=== PATIENT | female | born 1990 | race Caucasian/White ===

== ENCOUNTER → 2020-04-05 07:56 | Outpatient (CLI) | payer OTHER, SELFPAY ==
--- NOTE | ~2020-04-05 | US_ITS ---
EXAMINATION: US abdomen complete EXAM DATE: 04/05/2020 08:30 INDICATION: Upper abdominal pain, unspecified . TECHNIQUE: Multiple grayscale and Doppler images of the complete abdomen were obtained (by a technolo gist who performed the scan) and subsequently reviewed. There is no prior study for comparison. FINDINGS: The abdominal aorta is normal in caliber. Visualized portion IVC is patent. The pancreatic head a nd body are normal in appearance. The pancreatic tail is not visualized. The liver has normal echogenicity and contour. There are no focal liver lesions identified. There is no evidence of intrahepatic biliary duct dilation. Portal venous flow was seen in the hepatopedal , normal direction and has normal Doppler waveform. Common bile duct measures 2 mm, which is normal. The gallbladder wall is normal in thickness, with ex pected amount of distention. No sonographic evidence of pericholecystic fluid. There is no cholelit hiases. Technologist performing exam reports patient did not demonstrate sonographic Wheeler's sign. Please note that this sign is less reliable in patients who have received pain medication. Right kidney: There is normal contour and echogenicity. It measures 9.5 x 3.8 x 4.5 centimeters. T here are no focal renal lesions identified. There is no hydronephrosis. Left kidney: There is normal contour and echogenicity. It measures 10.1 x 5.6 x 3.7 centimeters. T here are no focal renal lesions identified. There is no hydronephrosis. The spleen measures 9.2 centimeters and is morphologically normal. IMPRESSION: 1. Unremarkable complete abdominal ultrasound exam. Reviewed, dictated and finalized at location B. HALMOLOGY TECHNICIAN
== END ==
PROVIDERS: PCP Physician Assistant; Visit Provider Physician Assistant
DX: R10.10 Upper abdominal pain, unspecified (principal)
CPT/HCPCS: 76700

== ENCOUNTER → 2020-04-09 11:07 | Outpatient (CLI) | payer OTHER, SELFPAY ==
--- NOTE | ~2020-04-09 | XR_ITS ---
EXAMINATION: XR UGIAC w small bowel DATE: 04/09/2020 13:11 INDICATION: Upper abdominal pain TECHNIQUE: The patient drank thick barium, gas-producing crystals, and thin barium. Conventional supi ne abdomen radiographs and fluoroscopic spot radiographs of the esophagus, stomach, and proximal smal l bowel were obtained. Additional overhead radiographs were obtained during the transit through the s mall bowel. Spot fluoroscopic images of the small bowel were obtained upon contrast reaching the cec um. A total of 4 overhead radiographs and 478 fluoroscopic images were recorded. Fluoroscopy exposure time was 3.1 minutes. COMPARISON: None. FINDINGS: The esophagus is normal without mass or stricture. Esophageal motility is normal. There is no hiatal hernia. There was no gastroesophageal reflux with provocative maneuvers. The stomach and proximal sma ll bowel are normal. Transit time from the stomach to proximal colon was approximately 30 minutes. There is normal caliber and mucosal fold pattern throughout the small bowel. The terminal ileum is suboptimally visualized, seen only en face along the axis of bowel where it appeared unremarkable. Attempts to profile the ter henry ileum in multiple different positions including in Trendelenburg and reverse Trendelenburg were unsuccessful due to its low lying position in the pelvis with multiple additional closely apposed lo ops of contrast opacified small bowel. No tethering or abnormal mass effect observed upon the small b owel with real-time fluoroscopy. IMPRESSION: 1. Normal upper GI and small bowel follow-through study. The terminal ileum is however suboptimally v isualized due to positioning in the deep pelvis. Reviewed, dictated and finalized at location B. RIMENTAL TECHNICIAN IMPRESSION: 1. Normal upper GI and small bowel follow-through study. The terminal ileum is however suboptimally visualized due to positioning in the deep pelvis.
== END ==
PROVIDERS: PCP Physician Assistant; Visit Provider Physician Assistant
DX: R10.10 Upper abdominal pain, unspecified (principal)
CPT/HCPCS: 74246; 74248

== ENCOUNTER 2021-11-14 09:38 | Outpatient (CLI) | payer OTHER, SELFPAY | END 2021-11-14 09:39 | disposition home or self-care (01) | PROVIDERS: PCP Physician Assistant; Visit Provider Obstetrics & Gynecology | DX: O26.859 Spotting complicating pregnancy, unspecified trimester (principal); Z3A.00 Weeks of gestation of pregnancy not specified | CPT/HCPCS: 36415; 85461 ==

== ENCOUNTER 2022-04-22 19:20 | Emergency (ER) | payer OTHER, SELFPAY ==
--- NOTE | 2022-04-22 19:28 | ED.FEMALEGU ---
HPI - Female Genitourinary General Chief complaint: Urogenital-Female Stated complaint: Possible UTI Time Seen by Provider: 04/22/22 19:32 Source: patient and RN notes reviewed Mode of arrival: ambulatory Limitations: no limitations History of Present Illness HPI Narrative: 31-year-old female presented for complaint of urinary frequency and odor over the last few days. Endorses the symptoms are difficult to separate from symptoms. Endorses pressure and urgency. Did home urine test that indicated leuks. State she has had several pre- UTIs with more severe symptoms. Last treated for UTI symptoms 03/14/22 with macrobid, no culture sent. denies increased nausea, vomiting, diarrhea, hematuria, flank pain, fevers or chills. She is not taking anything additional for symptoms. She is 30 weeks gestation and endorses normal movement today. Related Data Home Medications Medication Instructions Recorded Confirmed vits no.126-ferrous fum 1 tablet PO DAILY 04/22/22 04/22/22 28 mg iron-folic acid 800 mcg tablet (Classic ) sertraline 50 mg tablet 50 mg PO DAILY 04/22/22 04/22/22 Allergies Allergy/AdvReac Type Severity Reaction Status Date / Time No Known Allergies Allergy Verified 04/22/22 19:29 Review of Systems Review of Systems: CONSTITUTIONAL: Denies body aches, fever, chills, or sweats. CARDIOVASCULAR: Denies chest pain, palpitations, or edema. RESPIRATORY: Denies cough or dyspnea. GASTROINTESTINAL: Denies abdominal pain, nausea, vomiting, or diarrhea. Endorses hemorrhoids. GENITOURINARY: Reports frequency, denies dysuria, hematuria, flank pain SKIN: Denies rash, itching, or wounds. MUSCULOSKELETAL: Denies back pain or myalgia. [facility] Past Medical History Medical History (Updated 04/22/22 @ 20:04 by Kamala Dick, FELIPA) No pertinent past medical history Comments At time of signature, I have reviewed and agree with nursing past medical, surgical, social and family history unless otherwise noted. Please see nursing chart for further information. There is no relevant family history pertinent to the presenting complaint Exam Narrative: GENERAL: Well-appearing and in no acute distress. HEAD: Normocephalic EYES: EOMI. . ENT: Mucous membranes pink and moist. NECK: Normal AROM. Supple. CHEST: No respiratory distress. Clear to auscultation. HEART: Regular rate and rhythm. ABDOMEN: Gravid. Soft, No CVA tenderness MUSCULOSKELETAL: No bony tenderness. SKIN: Warm, dry, no rash. NEURO: No focal deficits. Alert and oriented x3. Gait steady. PSYCH: Normal affect. Course Course Emergency Course: Patient is aware of diagnosis, understands and agrees to treatment plan. Anticipatory guidance given. Patient agrees to follow-up as directed and is aware of reasons to seek care at the emergency department. Portions of this record may have been created with voice recognition software Level of Care: Express Care Visit Vital Signs Vital signs: Vital Signs Temperature 96.8 F L 04/22/22 19:30 Pulse Rate 89 04/22/22 19:30 Respiratory Rate 16 04/22/22 19:30 Blood Pressure 104/69 04/22/22 19:30 Pulse Oximetry 100 04/22/22 19:30 Oxygen Delivery Room Air 04/22/22 19:30 Temperature 96.8 F L 04/22/22 19:32 Pulse Rate 89 04/22/22 19:32 Respiratory Rate 16 04/22/22 19:32 Blood Pressure 104/69 04/22/22 19:32 Pulse Oximetry 100 04/22/22 19:32 Oxygen Delivery Room Air 04/22/22 19:32 Reviewed MDM - Female Genitourinary MDM Narrative Medical decision making narrative: Urine results reviewed with patient. Will await urine culture. Advised supportive measures and signs/symptoms to go to the ER. Pt is appropriate for outpt treatment and f/u. Differential Diagnosis Differential diagnosis: Likely urinary tract infection, cystitis and other Lab Data Labs: Urine Glucose Negative
[2022-04-22 19:30] VITALS: BP 104/69; PULSE 89; RESP 16; TEMP 36; O2SAT 100
[2022-04-22 19:32] VITALS: BP 104/69; PULSE 89; RESP 16; TEMP 36; O2SAT 100
== END 2022-04-22 19:41 | disposition home or self-care (01) ==
PROVIDERS: Emergency Provider Nurse Practitioner Family; PCP Physician Assistant
DX: R35.0 Frequency of micturition (principal)
CPT/HCPCS: 81003; 87086; 99213; G0463

== ENCOUNTER 2022-06-17 20:28 | Outpatient (CLI) | payer OTHER, SELFPAY ==
--- NOTE | 2022-06-17 20:40 | PC.NURSE ---
Patient arrives to unit with elevated blood pressures. She checked her pressures at home because she was looking flushed, not because she was feeling bad . She denies any signs of pre-e. She denies contractions and vaginal bleeding or leaking of fluid. Patient states a slight headache, but she is congested and has history of migraines. She has a history of anxiety and states that she is feeling anxious right now. Patient able to provide urine sample. monitoring explained to patient and applied.
[2022-06-17 20:54] VITALS: BP 136/102; PULSE 97
[2022-06-17 21:00] VITALS: BP 134/94; PULSE 97
[2022-06-17 21:14] LABS: Basophils Percent Auto 0.3 % (0.2-1.2); Eosinophils Percent Auto 0.3 % (0-4.4); Hematocrit 31.1 % (37.0-47.0); Immature Granulocyte Absolute 0.03 K/mm3 (0.00-0.031); Immature Granulocyte Percent A 0.3 % (0-0.5); Lymphocytes Absolute Auto 1.97 K/mm3 (0.9-3.2); Lymphocytes Percent Auto 20.5 % (18.3-44.2); Mean Corpuscular HGB Conc 32.2 g/dl (32-36); Mean Corpuscular Hemoglobin 29.4 pg (26-34); Mean Corpuscular Volume 91.5 fl (80-100); Mean Platelet Volume 12.2 fl (7.4-10.4); Monocytes Absolute Auto 0.6 K/mm3 (0.1-0.6); Monocytes Percent Auto 5.7 % (2.6-8.5); Neutrophils Percent Auto 72.9 % (45.5-73.1); Nucleated Red Blood Cells Perc 0.3 % (0.0-0.2); Platelet Count Result 168 k/mm3 (150-375); Red Cell Distribution Width 13.2 % (11.5-14.5); White Blood Count 9.6 K/mm3 (4.5-10.0)
[2022-06-17 21:15] VITALS: BP 131/92; PULSE 89
[2022-06-17 21:23] LABS: Appearance Urine Clear (Clear); Bacteria Urine Rare /hpf; Bilirubin Urine Negative (Negative); Blood Urine Negative (Negative); Color Urine Yellow (Yellow); Glucose Urine UA Negative (Negative); Ketones Urine Negative (Negative); Leukocyte Esterase Ur Trace LEU/UL (NEGATIVE); Nitrate Urine Negative (Negative); Non Pathogenic Casts 0-2; Protein Urine 1+ mg/dL (Negative); RBC Urine 0-2 /hpf (0-2); Specific Grav Ur 1.014 (1.001-1.035); Squamous Epithelial Cell Urine Few /hpf (Few); Urobilinogen Urine 0.2 mg/dL (<2.0); pH Urine 5.5 (5.0-9.0)
[2022-06-17 21:26] LABS: Alanine Aminotransferase 26 U/L (6-35); Albumin Level 3.4 g/dL (3.5-5.1); Alkaline Phosphatase 182 U/L (38-126); Anion Gap 6 mmol/L (8-16); Aspartate Amino Transferase 34 U/L (14-36); Bilirubin,Total 0.4 mg/dL (0.2-1.3); Blood Urea Nitrogen 13 mg/dL (7-17); Calcium 8.4 mg/dL (8.4-10.2); Carbon Dioxide 22 mmol/L (22-30); Chloride 104 mmol/L (98-107); Estimated Glomerular Filt Rate > 60; Glucose 119 mg/dL (65-110); Potassium 3.6 mmol/L (3.4-5.0); Sodium 132 mmol/L (137-145); Uric Acid 5.8 mg/dL (2.5-7.5)
[2022-06-17 21:30] VITALS: BP 133/92; PULSE 85
[2022-06-17 21:32] LABS: Creatinine Urine 82.8 mg/dL; Total Protein Urine Random 24 mg/dL; Ur Ttl Prot Creatinine Ratio 0.29 mg/mg (0-0.20)
[2022-06-17 21:39] LABS: Add Urine Microscopic? YES
--- NOTE | 2022-06-17 21:40 | PC.NURSE ---
Durga Rodgers CNM at [facility]. Updated that lab results are back and blood pressure results. Durga Rodgers reviewing labs. Durga Rodgers contacts Dr. Knowles and report is given. Orders received for 24 hour urine and to see Dr. Hector on Wednesday and have repeat labs at that time.
--- NOTE | 2022-06-17 21:43 | PC.NURSE ---
Durga Rodgers at bedside.
[2022-06-17 21:45] VITALS: BP 130/99; PULSE 88
--- NOTE | 2022-06-17 22:00 | PC.NURSE ---
Patient educated on 24 hour urine, pre-e signs and symptoms, call doctors office tomorrow morning.
== END 2022-06-17 22:14 | disposition home or self-care (01) ==
LOC: ANHOBOP 20:43 → ANHOBPP 20:43
PROVIDERS: Advanced Practice Midwife; PCP Physician Assistant; Visit Provider Obstetrics & Gynecology
DX: O13.9 Gestational [pregnancy-induced] hypertension without significant proteinuria, unspecified trimester (principal); Z3A.00 Weeks of gestation of pregnancy not specified
CPT/HCPCS: 36415; 59025; 80053; 81001; 82570; 84156; 84550; 85025; 87086; 87088; 99199

== ENCOUNTER 2022-06-18 13:47 | Inpatient (IN) | payer OTHER, SELFPAY ==
[2022-06-18] VITALS (70 sets, daily range): BP systolic 111–148; BP diastolic 68–119; PULSE 77–135; TEMP 37–37.4; O2SAT 96–99; BMI 29.3
--- NOTE | 2022-06-18 13:47 | LDADM ---
This patient, Karlene Beltran, was admitted to Labor/Delivery/Recovery 108 on 06/18/22 at 13:47. Plans for labor, pain management and were discussed with patient. Patient/family oriented to hospital policies and general routines including ID bracelet, bed and alarms, visiting hours, pain management, procedures, bathroom and other care routines, personal items, smoking policy, room service/diet and guest tray routines, infant security routines, and visiting hours. Patient/Family are encouraged to report perceived risks to care and to ask questions if they do not understand what they are told or what they should do. See [facility] for further documentation.
[2022-06-18 14:22] LABS: Basophils Percent Auto 0.3 % (0.2-1.2); Eosinophils Percent Auto 0.1 % (0-4.4); Hematocrit 31.7 % (37.0-47.0); Hemoglobin 10.1 g/dL (12.0-15.0); Immature Granulocyte Absolute 0.03 K/mm3 (0.00-0.031); Immature Granulocyte Percent A 0.3 % (0-0.5); Lymphocytes Absolute Auto 1.55 K/mm3 (0.9-3.2); Lymphocytes Percent Auto 16.3 % (18.3-44.2); Mean Corpuscular HGB Conc 31.9 g/dl (32-36); Mean Corpuscular Hemoglobin 29.8 pg (26-34); Mean Corpuscular Volume 93.5 fl (80-100); Mean Platelet Volume 11.8 fl (7.4-10.4); Monocytes Absolute Auto 0.4 K/mm3 (0.1-0.6); Monocytes Percent Auto 4.1 % (2.6-8.5); Neutrophils Absolute Auto 7.5 K/mm3 (1.3-6.7); Neutrophils Percent Auto 78.9 % (45.5-73.1); Nucleated Red Blood Cells Perc 0.3 % (0.0-0.2); Platelet Count Result 174 k/mm3 (150-375); Red Blood Count 3.39 M/mm3 (4.2-5.4); Red Cell Distribution Width 13.4 % (11.5-14.5); White Blood Count 9.5 K/mm3 (4.5-10.0)
[2022-06-18 15:12] LABS: HIV 1/2 Ab P24 Ag Result Negative (Negative)
[2022-06-18] MEDS: DINOPROSTONE 10 MG VAG INSERT VAGINAL (15:23)
[2022-06-18] MEDS: LACTATED RINGERS 1,000 ML 125 ML IV CONT (20:40)
[2022-06-18] MEDS: SERTRALINE HCL 50 MG TABLET PO (21:54)
[2022-06-18] MEDS: ACETAMINOPHEN 500 MG TABLET 1000 MG PO (21:54)
[2022-06-19] VITALS (184 sets, daily range): BP systolic 117–150; BP diastolic 72–106; PULSE 76–152; RESP 16–18; TEMP 36.4–37.1; O2SAT 95–100
[2022-06-19] MEDS: OXYTOCIN 30 UNITS/NS 500 ML 30 UNITS/500 ML BAG IV CONT (04:15)
--- NOTE | 2022-06-19 07:17 | PM.IMHP ---
H&P: HPI History of Present Illness Date/Time: 06/19/22 07:17 Chief Complaint: induction of labor Narrative: Karlene is a 31yo G1 at 37.2 IOL for mild PreE at term. BPs elevated in office yesterday with PC ratio 0.29. Highest BPs 150s/low 100s. Denies PreE sx. complicated by anxiety and bilobed placenta, normal growth. GBS neg. Review of Systems Review of Systems: All systems reviewed & are unremarkable except as noted in HPI and below PMFSH Past Medical History Medical History (Updated 06/19/22 @ 07:21 by Nataliia Hector MD) No pertinent past medical history Family History Family History (Updated 06/10/22 @ 12:36 by Orquidea Washburn RN) Mother Diabetes mellitus Social History Social History Smoking status: Never smoker Substance use: never Lack of Transportation: No Lack of Food: Never True Current Housing: I Have Housing Concerned About Future Housing: No Difficulty Paying Gas/Electric Bills: No Difficulty Paying for Meds: No Currently Unemployed: No Education: Master's Degree or Higher Difficulty w/ Childcare or Family Care: No Spiritual care concerns: No Meds Home Medications and Allergies Home Medications Medication Instructions Recorded Confirmed Type vits no.126-ferrous fum 1 tablet PO DAILY 04/22/22 06/18/22 History 28 mg iron-folic acid 800 mcg tablet (Classic ) sertraline 50 mg tablet 50 mg PO DAILY 04/22/22 06/18/22 History cholecalciferol (vitamin D3) 25 25 mcg PO DAILY 06/10/22 06/10/22 History mcg (1,000 unit) tablet docusate sodium 100 mg capsule 100 mg PO DAILY 06/10/22 06/10/22 History (Colace) Allergies Allergy/AdvReac Type Severity Reaction Status Date / Time No Known Allergies Allergy Verified 04/22/22 19:29 Vital Signs Vital Signs - 24 hr 06/18/22 14:30 06/18/22 14:45 06/18/22 15:00 Temperature Pulse Rate 99 101 H 98 Blood Pressure 122/82 126/88 122/87 Pulse Oximetry Oxygen Delivery 06/18/22 15:15 06/18/22 15:30 06/18/22 15:24 Temperature 98.6 F Pulse Rate 97 87 Blood Pressure 115/85 126/88 Pulse Oximetry Oxygen Delivery 06/18/22 15:45 06/18/22 16:00 06/18/22 16:15 Temperature Pulse Rate 92 91 91 Blood Pressure 122/79 132/84 128/86 Pulse Oximetry Oxygen Delivery 06/18/22 16:30 06/18/22 16:45 06/18/22 17:00 Temperature Pulse Rate 93 92 91 Blood Pressure 120/81 126/85 137/90 Pulse Oximetry Oxygen Delivery 06/18/22 17:15 06/18/22 17:30 06/18/22 17:45 Temperature Pulse Rate 91 92 97 Blood Pressure 131/96 H 140/97 H 145/100 H Pulse Oximetry Oxygen Delivery 06/18/22 18:00 06/18/22 18:15 06/18/22 18:30 Temperature Pulse Rate 99 92 89 Blood Pressure 127/80 128/79 134/86 Pulse Oximetry Oxygen Delivery 06/18/22 18:45 06/18/22 19:00 06/18/22 19:15 Temperature Pulse Rate 92 90 92 Blood Pressure 122/74 126/82 134/77 Pulse Oximetry Oxygen Delivery 06/18/22 19:30 06/18/22 19:45 06/18/22 19:59 Temperature Pulse Rate 94 89 109 H Blood Pressure 122/78 125/76 140/110 H Pulse Oximetry Oxygen Delivery 06/18/22 20:15 06/18/22 20:30 06/18/22 20:20 Temperature 99.3 F Pulse Rate 100 92 Blood Pressure 135/89 128/83 Pulse Oximetry Oxygen Delivery 06/18/22 20:45 06/18/22 21:00 06/18/22 21:30 Temperature Pulse Rate 97 100 89 Blood Pressure 131/88 135/82 148/96 H Pulse Oximetry Oxygen Delivery 06/18/22 21:40 06/18/22 21:41 06/18/22 21:42 Temperature Pulse Rate 127 H 127 H Blood Pressure 142/119 H 141/95 H Pulse Oximetry 98 Oxygen Delivery 06/18/22 21:45 06/18/22 21:47 06/18/22 21:50 Temperature Pulse Rate 135 H 116 H 119 H Blood Pressure 139/96 H 133/101 H 133/92 H Pulse Oximetry 99 98 Oxygen Delivery 06/18/22 21:52 06/18/22 21:55 06/18/22 21:57 Temperature
[2022-06-19] MEDS: LACTATED RINGERS 1,000 ML 125 ML IV CONT (07:24)
[2022-06-19 11:21] LABS: Rapid Plasma Reagin Non-Reactive (NonReactive)
--- NOTE | 2022-06-19 12:40 | PM.OBPRVD ---
OB - Delivery Note Procedure Delivery date: 06/19/22 Procedure: Events: Preeclampsia w/o severe features Induction method: AROM, Per Pitocin Protocol and Per Cervidil Protocol Delivery monitor: External FHT and Internal Uterine Route of delivery: Laceration Description: Perineal - 2nd Degree Delivery repair: vicryl Quantitative Blood Loss (ml): 460 Anesthesia type: Epidural Disposition: Floor Baby Date of : 06/19/22 Time of : 12:00 Weeks of gestation at delivery: 37 gender: Female Weight (pounds): 6 Weight (ounces): 0 presentation: vertex Placenta delivery description: Spontaneous Cord Vessel Description: 3 Vessels and Delayed Cord Clamping score one minute: 9 score five minutes: 9
[2022-06-19] MEDS: OXYTOCIN 30 UNITS/NS 500 ML 30 UNITS/500 ML BAG 125 UNITS IV CONT (13:00)
[2022-06-19] MEDS: IBUPROFEN 600 MG TABLET PO ×2 (14:02→19:43)
[2022-06-19] MEDS: ACETAMINOPHEN 500 MG TABLET 1000 MG PO (14:53)
[2022-06-19] MEDS: WITCH HAZEL 40 PADS 1 PAD TOPICAL (14:55)
[2022-06-19] MEDS: BENZOCAINE 20% AER SPR (*SP) 56 GM CAN 1 SPRAY TOPICAL (14:55)
--- NOTE | 2022-06-19 15:52 | PC.NURSE ---
[id number] Introductions were made, then consulted with patient to assess needs related to . Mother led the conversation with her?plans to feed?her infant and the?experience so far. Resources provided for inpatient and outpatient services with the mom/baby guide. Mother voiced understanding of information and requested assistance. Mother works well with her with encouragement and education. Encouraged understanding of the benefits of skin to skin (demonstrating unwrapping infant and placing upright on her chest), stimulating with massage touch, changing positions to encourage wakefulness, how to watch for early feeding cues, responsive feeding, feeding on demand (aiming for 8-12 times in 24 hours, about every 2-3 hours), milk production, building/maintaining a milk supply, duration of feeding, signs of adequate intake/output and how to record on the feeding sheet. Reviewed positioning and ear, shoulder, hip alignment, supporting the breast with the sandwich hold to facilitate a deep latch, asymmetrical latch (off-center), leading with the chin with a big, open, wide gape and body close to mother. Infant latched optimally to the left breast in cross cradle position. Education given to mother of how to visualize suck/swallow ratios and listen for drinking at the breast. was able to maintain latch without discomfort to mother. Nipple care reviewed with optimal latch and good positioning. Reviewed good handwashing when or touching the breast/nipples to prevent infection. Reviewed hand expression as needed to encourage wakefulness to breastfeed. Resources used to facilitate learning were used with the visual handouts, tool, mom and baby guide. Mother voiced understanding of skin to skin, stimulating with massage touch, responsive feedings, hand expressed colostrum, talking to to encourage if it has been 2 -2.5 hours since the start of the last , to call if does not latch, or if there is discomfort with . Resources provided for inpatient/outpatient with business card, feeding sheet and the mom/baby guide. Parents voiced understanding of information, demonstrated learning and will call if there is a request for assistance. Reported to the primary RN.
--- NOTE | 2022-06-19 17:34 | PC.NURSE ---
Patient transferred to post room #286 via wheelchair. Support person present. Oriented to unit, room, information board, rooming in, admission packet and security measures. Patient verbalizes understanding.
[2022-06-19] MEDS: ACETAMINOPHEN 325 MG TABLET 650 MG PO (21:36)
[2022-06-19] MEDS: SERTRALINE HCL 50 MG TABLET PO (21:40)
[2022-06-19] MEDS: DOCUSATE SODIUM 100 MG CAPSULE PO (21:40)
[2022-06-20] VITALS: BP 138/95; PULSE 83; RESP 18; TEMP 36.5; O2SAT 96
[2022-06-20] MEDS: IBUPROFEN 600 MG TABLET PO ×2 (03:06→16:31)
[2022-06-20 03:38] VITALS: BP 136/99; PULSE 87; RESP 16; TEMP 36.7; O2SAT 98
[2022-06-20 05:08] LABS: Hemoglobin 9.3 g/dL (12.0-15.0)
--- NOTE | 2022-06-20 06:35 | PM.OBPNVD ---
OB - PN: Subj Subjective Date/time seen: 06/20/22 06:35 Patient comments: no complaints, pain well controlled, incisional pain, tolerating diet and flatus present OB - PN: Obj Data Labs 06/20/22 03:46 Labs: Laboratory Results - last 24 hr 06/18/22 06/20/22 14:14 03:46 Hgb 9.3 L Hct 30.0 L RPR Non-reactive OB - PN A/P Plan day: 1 Plan: routine care Comments: No problems, routine care Time Spent With Patient Time: Total time spent is greater than 50% in coordination of care (as documented) at patient's floor/unit and/or counseling patient: Exam Const: General: comfortable, no acute distress and alert Resp: Effort & Inspection: normal respiratory effort Auscultation: no crackles, no rales and no rhonchi Cardio: Rate: regular rate Heart sounds: no click, no murmurs and no rubs GI: Inspection: non-distended GI Palp: No Tenderness to palpation present (GI) Auscultation: normal bowel sounds Other: Incision - CDI Extrem: General: normal to inspection, no pedal edema and no calf tenderness
[2022-06-20 09:46] VITALS: BP 125/85; PULSE 91; RESP 16; TEMP 36.6; O2SAT 98
[2022-06-20] MEDS: DOCUSATE SODIUM 100 MG CAPSULE PO ×2 (09:46→16:31)
[2022-06-20] MEDS: MULTIVIT/MIN/PREN/FOL AC/IRON TABLET 1 TAB PO (09:46)
[2022-06-20] MEDS: POLYSACCHARIDE IRON COMPLEX 150 MG CAPSULE PO ×2 (09:46→16:30)
[2022-06-20] MEDS: ACETAMINOPHEN 325 MG TABLET 650 MG PO ×2 (09:47→21:02)
--- NOTE | 2022-06-20 11:24 | PC.NURSE ---
0960 Pt had Gestational Hypertension. Starting Q4 hour B/Ps, I&O, will weigh her today also.
[2022-06-20 16:31] VITALS: BP 134/96; PULSE 91; RESP 18; TEMP 36.6; O2SAT 98
--- NOTE | 2022-06-20 18:26 | WPDANLDPN2 ---
Anes-Prog Note L&D Date/Time: 06/20/22 18:26 Neuro status: Neuro function grossly intact. Cardiovascular status: normal Respiratory status: normal Airway patency: baseline Mental status: baseline Post-Op hydration status: normal Vital Signs: Last Vital Signs Temp 36.6 C 06/20/22 09:46 Pulse 91 06/20/22 09:46 Resp 16 06/20/22 09:46 BP 125/85 06/20/22 09:46 Pulse Ox 98 06/20/22 09:46 O2 Del Method Room Air 06/20/22 09:46 Pain score (VAS): 0 I/O: Intake & Output 06/20/22 06/20/22 06/20/22 07:59 15:59 23:59 Intake Total 800 Balance 800 Post-procedural complaints: none Patient feedback: Patient satisfied with anesthetic care.
[2022-06-20] MEDS: SERTRALINE HCL 50 MG TABLET PO (20:42)
[2022-06-20 20:43] VITALS: BP 136/98; PULSE 74; RESP 18; TEMP 36.7; O2SAT 97
[2022-06-20] MEDS: DIBUCAINE 1% OINTMENT 30 GM TUBE 1 APPLIC TOPICAL (21:05)
[2022-06-20 23:30] VITALS: BP 123/83; TEMP 36.5; O2SAT 99
[2022-06-21 02:45] VITALS: BP 132/90; PULSE 76; TEMP 36.9; O2SAT 98
[2022-06-21] MEDS: MULTIVIT/MIN/PREN/FOL AC/IRON TABLET 1 TAB PO (08:28)
[2022-06-21] MEDS: POLYSACCHARIDE IRON COMPLEX 150 MG CAPSULE PO (08:28)
[2022-06-21 08:29] VITALS: BP 134/93; PULSE 84; RESP 18; TEMP 36.7; O2SAT 99
[2022-06-21] MEDS: IBUPROFEN 600 MG TABLET PO (08:29)
[2022-06-21] MEDS: DOCUSATE SODIUM 100 MG CAPSULE PO (08:29)
--- NOTE | 2022-06-21 10:11 | PM.OBPNVD ---
OB - PN: Subj Subjective Date/time seen: 06/21/22 10:11 vaginal delivery, day 2 doing well pain well managed OB - PN: Obj Data Labs 06/20/22 03:46 OB - PN A/P Plan day: 2 Plan: routine care and discharge home Time Spent With Patient Time: Total time spent is greater than 50% in coordination of care (as documented) at patient's floor/unit and/or counseling patient: Review of Systems Review of Systems: All systems reviewed & are unremarkable except as noted in HPI and below Exam Const: General: cooperative, healthy appearing and comfortable Chest: Chest palpation & inspection: normal inspection of the chest Resp: Effort & Inspection: normal respiratory effort GI: Inspection: normal to inspection Skin: General skin exam: normal color and no rashes or lesions noted Extrem: General: normal to inspection Psych: Appearance: grossly normal and well kempt
--- NOTE | 2022-06-21 10:14 | PM.OBDSVD ---
DS: Admitting Diagnosis Discharge Date 06/21/22 Admitting Diagnosis IOL, mild pre eclampsia DS: Discharge Diagnosis Discharge Diagnosis (1) Vaginal delivery: Code(s): O80 - Encounter for full-term uncomplicated delivery Status: Acute OB - DS: Summary OB Procedures : None OB Procedures Intrapartum: Spontaneous Vag Delivery OB Procedures: : None Time Spent with Patient Time attestation: Total time spent providing and/or coordinating discharge services: Discharge Plan Discharge Attending physician on discharge: Goldie Knowles Discharging Clinician: Shameka Rodgers Patient Disposition: Home, Self-Care Activity: pelvic rest Diet: regular Patient Instructions: Antibiotic Form Stand Alone Forms: General Discharge Information Follow-up/Referrals: Nataliia Hector MD [Physician] - 1 Week (1 week for bp check) Discharge Medications: New ibuprofen 600 mg Tablet 600 mg PO Q6H PRN (Reason: Cramping) Qty: 30 0RF polysaccharide iron complex 150 mg iron Capsule 150 mg PO BIDWM Qty: 60 0RF Continued sertraline 50 mg tablet 50 mg PO DAILY Classic 28 mg iron- 800 mcg Tablet 1 tablet PO DAILY docusate sodium [Colace] 100 mg Capsule 100 mg PO DAILY cholecalciferol (vitamin D3) 25 mcg (1,000 unit) Tablet 25 mcg PO DAILY Date of admission: 06/18/22 13:47 Primary Care Provider: AriadnaSonia Admitting Provider: Nataliia Hector Attending physician on admission: Nataliia Hector Condition: Stable
--- NOTE | 2022-06-21 15:01 | PC.NURSE ---
0919 called pharmacy to ask about the contraindication with allergy to Erythritol and getting the MMR vaccine.
--- NOTE | 2022-06-21 15:22 | PC.NURSE ---
0900 Patient viewed the discharge video Mother & Baby Care, The First Two Weeks . Patient was given the opportunity and encouraged to ask questions. Patient verbalized understanding of information shared and has been given the mother/baby guide for home reference.
[2022-06-22 08:46] VITALS: BP 131/99; PULSE 102; RESP 18; TEMP 37; O2SAT 98
== END 2022-06-21 14:30 | disposition home or self-care (01) | DRG 807 ==
LOC: ANHLDR 13:54 → ANHOB2 06-19 14:46
PROVIDERS: Obstetrics & Gynecology; Admitting Provider Obstetrics & Gynecology; PCP Physician Assistant; Visit Provider Obstetrics & Gynecology
DX: O14.04 Mild to moderate pre-eclampsia, complicating childbirth (principal); Z37.0 Single live birth; O43.193 Other malformation of placenta, third trimester; O99.344 Other mental disorders complicating childbirth; F41.9 Anxiety disorder, unspecified; O70.1 Second degree perineal laceration during delivery; O13.4 Gestational [pregnancy-induced] hypertension without significant proteinuria, complicating childbirth; Z3A.37 37 weeks gestation of pregnancy
CPT/HCPCS: 36415; 59025; 80053; 81001; 82570; 84156; 84550; 85014; 85018; 85025; 86592; 86703; 86850; 86900; 86901; 87086; 87088; 99199; A9270; G0432; J2590; J2795; J7120

== ENCOUNTER 2022-06-25 14:28 | Emergency (ER) | payer OTHER, SELFPAY ==
[2022-06-25 14:35] VITALS: BP 145/100; PULSE 115; RESP 18; TEMP 37.2; O2SAT 100
--- NOTE | 2022-06-25 16:45 | ED.GENADULT ---
HPI - General Adult General Chief complaint: GI Bleed Stated complaint: rectal bleeding Time Seen by Provider: 06/25/22 16:20 History of Present Illness HPI narrative: Patient is a 31-year-old female who is six days post- here in due to bleeding hemorrhoids. Patient states that she was diagnosed with hemorrhoids and and since delivery she has had an increase in bleeding from her rectum. The hemorrhoids are painful and swollen as well. She has attempted stool softeners, suppositories, which teressa pads without relief. Reports moderate-large amounts of blood dripping in the toilet. She denies any abdominal pain, vaginal bleeding, fevers or chills, headaches. Her was complicated by preeclampsia and she delivered at 37 weeks. Related Data Home Medications Medication Instructions Recorded Confirmed vits no.126-ferrous fum 1 tablet PO DAILY 04/22/22 06/18/22 28 mg iron-folic acid 800 mcg tablet (Classic ) sertraline 50 mg tablet 50 mg PO DAILY 04/22/22 06/18/22 cholecalciferol (vitamin D3) 25 25 mcg PO DAILY 06/10/22 06/10/22 mcg (1,000 unit) tablet docusate sodium 100 mg capsule 100 mg PO DAILY 06/10/22 06/10/22 (Colace) Allergies Allergy/AdvReac Type Severity Reaction Status Date / Time No Known Allergies Allergy Verified 04/22/22 19:29 Review of Systems Review of Systems: Gen.: Denies fevers or chills Eyes: Denies eye pain or visual change ENT: Denies congestion Respiratory: Denies shortness of breath or cough CV: Denies chest pain or palpitations GI: Denies abdominal pain nausea, emesis or diarrhea reports rectal bleeding. Denies burning, urgency, frequency or hematuria Musculoskeletal: Denies back pain or muscle pain Neuro: Denies numbness, tingling, weakness or focal weakness Skin: Denies rash Except as documented, all other systems reviewed and negative [facility] Past Medical History Medical History No pertinent past medical history Family History Family History (Updated 06/10/22 @ 12:36 by Orquidea Washburn RN) Mother Diabetes mellitus Social History Social History Smoking status: Never smoker Substance use: never Lack of Transportation: No Lack of Food: Never True Current Housing: I Have Housing Concerned About Future Housing: No Difficulty Paying Gas/Electric Bills: No Difficulty Paying for Meds: No Currently Unemployed: No Education: Master's Degree or Higher Difficulty w/ Childcare or Family Care: No Spiritual care concerns: No Exam Narrative: APPEARANCE: Well appearing, no pain in distress, well-nourished. Head: Normocephalic and atraumatic. EYES: PERRLA/EOMI, conjunctivae clear NOSE: No nasal drainage EARS: External ear normal in appearance THROAT: Oropharynx is clear. Mucous membranes are moist. NECK: Supple. No adenopathy, no masses. RESPIRATORY: Airway patent, respirations nonlabored. Clear to auscultation bilaterally, no rales, rhonchi, wheezing. CARDIOVASCULAR: Regular rate and rhythm without murmurs, rubs, or gallops. ABDOMINAL: Normoactive bowel sounds. Soft, nontender, nondistended. No rebound tenderness or guarding. : There is a large thrombosed external hemorrhoid at the 9 o'clock position. MUSCULOSKELETAL: Extremities are warm and well-perfused. Moves all extremities well. No edema. NEURO: Normal speech. No focal neurologic deficits. SKIN: Skin is warm and dry. No rashes. PSYCHIATRIC: Normal affect/mood. Course Vital Signs Vital signs: Vital Signs Temperature 98.9 F 06/25/22 14:35 Pulse Rate 115 H 06/25/22 14:35 Respiratory Rate 18 06/25/22 14:35 Blood Pressure 145/100 H 06/25/22 14:35 Pulse Oximetry 100 06/25/22 14:35 Oxygen Delivery Room Air 06/25/22 14:35 Temperature 98.9 F 06/25/22 14:35 Pulse Rate 115 H 06/25/22 14:35 Res
[2022-06-25] MEDS: HYDROCORTISONE ACETATE 25 MG SUPPOSITORY RECTAL (17:06)
[2022-06-25] MEDS: SODIUM CHLORIDE 0.9% IV 1,000 ML 999 ML IV CONT (17:07)
[2022-06-25] MEDS: LIDOCAINE, EPINEPHRINE, TETRACAINE VISCOUS SOLN 3 ML TOPICAL (17:07)
[2022-06-25 17:09] LABS: Basophils Absolute Auto 0.1 K/mm3 (0.0-0.1); Basophils Percent Auto 0.4 % (0.2-1.2); Eosinophils Absolute Auto 0.1 K/mm3 (0-0.3); Eosinophils Percent Auto 0.9 % (0-4.4); Hematocrit 37.7 % (37.0-47.0); Hemoglobin 11.8 g/dL (12.0-15.0); Immature Granulocyte Absolute 0.04 K/mm3 (0.00-0.031); Immature Granulocyte Percent A 0.4 % (0-0.5); Lymphocytes Absolute Auto 2.31 K/mm3 (0.9-3.2); Lymphocytes Percent Auto 20.3 % (18.3-44.2); Mean Corpuscular HGB Conc 31.3 g/dl (32-36); Mean Corpuscular Hemoglobin 29.8 pg (26-34); Mean Corpuscular Volume 95.2 fl (80-100); Mean Platelet Volume 10.5 fl (7.4-10.4); Monocytes Absolute Auto 0.7 K/mm3 (0.1-0.6); Neutrophils Absolute Auto 8.2 K/mm3 (1.3-6.7); Nucleated Red Blood Cells Perc 0.2 % (0.0-0.2); Platelet Count Result 267 k/mm3 (150-375); Red Blood Count 3.96 M/mm3 (4.2-5.4); White Blood Count 11.4 K/mm3 (4.5-10.0)
[2022-06-25 17:19] LABS: INR 0.9; Prothrombin Time 12.5 Seconds (11.1-14.7)
[2022-06-25 17:20] LABS: Partial Thromboplastin Time 23.9 SECONDS (22.3-36.8)
[2022-06-25 17:21] LABS: Alanine Aminotransferase 74 U/L (6-35); Albumin Level 4.8 g/dL (3.5-5.1); Alkaline Phosphatase 166 U/L (38-126); Anion Gap 10 mmol/L (8-16); Aspartate Amino Transferase 51 U/L (14-36); Bilirubin,Total 0.4 mg/dL (0.2-1.3); Blood Urea Nitrogen 16 mg/dL (7-17); Calcium 9.4 mg/dL (8.4-10.2); Carbon Dioxide 28 mmol/L (22-30); Chloride 101 mmol/L (98-107); Estimated Glomerular Filt Rate > 60; Glucose 84 mg/dL (65-110); Potassium 4.6 mmol/L (3.4-5.0); Sodium 139 mmol/L (137-145)
[2022-06-25 18:00] VITALS: BP 160/107; PULSE 90; RESP 16; O2SAT 100
[2022-06-25 18:00] LABS: Appearance Urine Clear (Clear); Bacteria Urine None Seen /hpf; Bilirubin Urine Negative (Negative); Blood Urine 2+ (Negative); Color Urine Yellow (Yellow); Glucose Urine UA Negative (Negative); Ketones Urine Negative (Negative); Leukocyte Esterase Ur 2+ LEU/UL (Negative); Nitrate Urine Negative (Negative); Non Pathogenic Casts 0-2; Protein Urine Negative (Negative); RBC Urine 21-50 /hpf (0-2); Specific Grav Ur 1.012 (1.001-1.035); Squamous Epithelial Cell Urine None seen /hpf (Few); Urobilinogen Urine 0.2 mg/dL (<2.0); WBC Urine 21-50 /hpf
[2022-06-25 18:05] LABS: Add Urine Microscopic? YES
[2022-06-25 19:10] VITALS: BP 151/109; PULSE 95; RESP 16; O2SAT 95
== END 2022-06-25 19:10 | disposition home or self-care (01) ==
PROVIDERS: Emergency Provider Physician Assistant; PCP Physician Assistant
DX: O87.2 Hemorrhoids in the puerperium (principal)
CPT/HCPCS: 36415; 80053; 81001; 85025; 85610; 85730; 86850; 86900; 86901; 87086; 96360; 99283; A9270; J7030

== ENCOUNTER 2022-12-16 08:04 | Emergency (ER) | payer OTHER, SELFPAY ==
[2022-12-16 08:27] VITALS: BP 118/85; PULSE 90; RESP 20; TEMP 36.4; O2SAT 100
--- NOTE | 2022-12-16 08:34 | ED.URI ---
HPI - URI/Sore Throat General Chief Complaint: Upper Respiratory Infection Stated Complaint: sorethroat,congestion Time Seen by Provider: 12/16/22 08:28 Source: patient Mode of arrival: ambulatory Limitations: no limitations History of Present Illness HPI Narrative: Karlene is a 32-year-old female patient presenting to clinic today with complaints of sore throat, body aches, cough, and congestion x4 days. She denies any fever or chills. Did at home COVID test and it was negative. MD elicited complaint: cough, sore throat, nasal congestion and other (Body aches) Related Data Home Medications Medication Instructions Recorded Confirmed vits no.126-ferrous fum 1 tablet PO DAILY 04/22/22 12/16/22 28 mg iron-folic acid 800 mcg tablet (Classic ) sertraline 50 mg tablet 50 mg PO DAILY 04/22/22 12/16/22 levonorgestrel-ethinyl estradiol 1 tablet DIRECTED 12/16/22 12/16/22 0.1 mg-20 mcg tablet (Aviane) Allergies Allergy/AdvReac Type Severity Reaction Status Date / Time No Known Allergies Allergy Verified 04/22/22 19:29 Review of Systems Review of Systems: Pertinent positives per HPI. Patient denies any fever, chills, rash, headache, visual changes, dizziness, cough, shortness of breath, chest pain, palpitations, nausea, vomiting, diarrhea, constipation, abdominal pain, or any urinary issues. [facility] Past Medical History Medical History No pertinent past medical history Family History Family History Mother Diabetes mellitus Social History Social History Smoking status: Never smoker Substance use: never Lack of Transportation: No Lack of Food: Never True Current Housing: I Have Housing Concerned About Future Housing: No Difficulty Paying Gas/Electric Bills: No Difficulty Paying for Meds: No Currently Unemployed: No Education: Master's Degree or Higher Difficulty w/ Childcare or Family Care: No Spiritual care concerns: No Comments At the time of my signature, I reviewed and agree with the nursing past medical, surgical, social, and family history. There is no relevant family history pertinent to the patient complaint. Exam Narrative: General: Well-developed, well nourished, in no apparent distress Head: Normocephalic, atraumatic Eyes: Pupils equally round and reactive to light bilaterally, EOM intact, sclera and conjunctive clear, no discharge, lids normal Ears: TMs intact and clear, ear canals clear, no drainage, grossly hearing normal. Nose: Nares patent, clear discharge, no inflammation, no sinus tenderness. Mouth: Oral pharynx red with mild tonsillar enlargement like, without lesions or masses, good dentition, MMM. Neck: Supple, trachea midline, mild enlargement of anterior cervical nodes, no thyroid masses or goiter palpable. Cardio: Regular rate and rhythm, s1 and s2 normal, no murmur appreciated. Resp: Clear to auscultation bilaterally, no rhonchi, rales, wheezing or rubs Course Course Emergency Course: Portions of this record may have been created with voice recognition software. Level of Care: Express Care Visit Vital Signs Vital signs: Vital Signs Temperature 36.4 C 12/16/22 08:27 Pulse Rate 90 12/16/22 08:27 Respiratory Rate 20 12/16/22 08:27 Blood Pressure 118/85 12/16/22 08:27 Pulse Oximetry 100 12/16/22 08:27 Oxygen Delivery Room Air 12/16/22 08:27 Temperature 36.4 C 12/16/22 08:27 Pulse Rate 90 12/16/22 08:27 Respiratory Rate 20 12/16/22 08:27 Blood Pressure 118/85 12/16/22 08:27 Pulse Oximetry 100 12/16/22 08:27 Oxygen Delivery Room Air 12/16/22 08:27 Vital signs reviewed MDM - URI/Sore Throat MDM Narrative Medical decision making narrative: At the time of visit patient is resting comfortably on the
== END 2022-12-16 08:56 | disposition home or self-care (01) ==
PROVIDERS: Emergency Provider Nurse Practitioner Family; PCP Physician Assistant
DX: B34.9 Viral infection, unspecified (principal); J06.9 Acute upper respiratory infection, unspecified; J02.9 Acute pharyngitis, unspecified
CPT/HCPCS: 87081; 87880; 99213; G0463

== ENCOUNTER 2023-01-18 00:51 | Day surgery (SDC) | payer OTHER, SELFPAY ==
[2023-01-04 14:13] VITALS: BMI 22.0
--- NOTE | 2023-01-15 13:45 | SUR.PREOP ---
Patient called regarding upcoming procedure. Reviewed preop instructions, appointment times, and procedure prep.
[2023-01-18 06:32] VITALS: BP 122/87; PULSE 97; RESP 16; TEMP 36.3; O2SAT 100
[2023-01-18] MEDS: LACTATED RINGERS 1,000 ML 150 ML IV CONT (06:41)
--- NOTE | 2023-01-18 07:23 | WPDHPUPDATE1 ---
History and Physical Update Update Date/Time: 01/18/23 07:23 History and Physical has been reviewed, including an updated exam of the patient. There are NO changes in the patient's condition. Risks, benefits, and alternatives have been discussed and questions answered. Patient agrees to proceed with procedure.
--- NOTE | 2023-01-18 07:28 | P.PNAN_ITS ---
Anes - Initial Pre Proc Eval Procedure: Operation Date: 01/18/23 07:30 Proposed Procedures p Colonoscopy - Shin Jose MD Date/Time: 01/18/23 07:28 Surgeon: Shin Jose MD Pre Op Diagnosis: melena,anal fissure,specified diseases of anus/rec Patient Data Age: 32 Gender: F Height: 1.65 m Weight: 60.9 kg Last Vital Signs Temp 97.3 F L 01/18/23 06:32 Pulse 97 01/18/23 06:32 Resp 16 01/18/23 06:32 BP 122/87 01/18/23 06:32 Pulse Ox 100 01/18/23 06:32 O2 Del Method Room Air 01/18/23 06:32 Allergies Allergy/AdvReac Type Severity Reaction Status Date / Time No Known Allergies Allergy Verified 01/18/23 06:25 Home Medications Medication Instructions Recorded Confirmed Type vits no.126-ferrous fum 1 tablet PO DAILY 04/22/22 01/18/23 History 28 mg iron-folic acid 800 mcg tablet (Classic ) sertraline 50 mg tablet 50 mg PO DAILY 04/22/22 01/18/23 History levonorgestrel-ethinyl estradiol 1 tablet DIRECTED 12/16/22 01/18/23 History 0.1 mg-20 mcg tablet (Aviane) sumatriptan succinate 50 mg tablet See Rx Instructions PO .COMPLEX 12/29/22 01/18/23 History (Imitrex) ubrogepant 50 mg tablet (Ubrelvy) 50 mg PO DAILY PRN Migraine 01/04/23 01/18/23 History Headache Patient hx anesthesia problems: none Family hx anesthesia problems: none Results Review: All pre-operative results and documents have been reviewed as part of the pre- operative evaluation. [facility] Past Medical History Medical History (Updated 12/29/22 @ 11:20 by Paradise Randle APRN) Anal fissure Hematochezia No pertinent past medical history Rectal pain Family History Family History Mother Diabetes mellitus Social History Social History Smoking status: Never smoker Alcohol intake: current Drinks per week: 2 Substance use: never Substance use type: does not use Lack of Transportation: No Lack of Food: Never True Current Housing: I Have Housing Concerned About Future Housing: No Difficulty Paying Gas/Electric Bills: No Difficulty Paying for Meds: No Currently Unemployed: No Education: Master's Degree or Higher Difficulty w/ Childcare or Family Care: No Living arrangements: with family Spiritual care concerns: No Anes - Eval Final PreProcedure Day of Procedure 01/18/23 07:28 Patient weight: normal Heart: regular rate and rhythm Lungs: clear to auscultation Airway: Mallampati scale class II Neurological: alert and oriented Last oral intake: >/= 8 hours ASA classification: II Emergent: no Anesthetic plan: proceed Anesthesia type and monitoring: general GIVS and standard monitoring Results Review: All pre-operative results and documents have been reviewed as part of the pre- operative evaluation. Informed Consent: The patient's anesthetic plan and its attendant risks and benefits were discussed with the patient/family/POA. Questions were solicited and answers provided to the satisfaction of the patient/family/POA.
[2023-01-18 07:52] VITALS: BP 97/56; PULSE 76; RESP 18; O2SAT 100
[2023-01-18 08:02] VITALS: BP 102/67; PULSE 77; RESP 21; O2SAT 100
[2023-01-18 08:12] VITALS: BP 103/70; PULSE 68; RESP 21; O2SAT 100
== END 2023-01-18 08:17 | disposition home or self-care (01) ==
PROVIDERS: PCP Physician Assistant; Visit Provider Internal Medicine Gastroenterology
PROC: 0DJD8ZZ Inspection of Lower Intestinal Tract, Via Natural or Artificial Opening Endoscopic (ICD-10-PCS; CPT 45378; principal; 2023-01-18 07:30)
DX: K64.8 Other hemorrhoids (principal)
CPT/HCPCS: 45378; J2704; J7120

== ENCOUNTER 2023-01-29 08:07 | Emergency (ER) | payer OTHER, SELFPAY ==
--- NOTE | 2023-01-29 08:17 | ED.URI ---
HPI - URI/Sore Throat General Chief Complaint: Upper Respiratory Infection Stated Complaint: sorethroat,congestion Time Seen by Provider: 01/29/23 08:17 Source: patient Mode of arrival: ambulatory Limitations: no limitations History of Present Illness HPI Narrative: Karlene is a 32-year-old female patient presenting to the clinic today with complaints of fever, sore throat, body aches, chills, cough, and nasal congestion x3 days. She reports no known exposure to anyone with COVID, flu, or strep. Denies any chest pain or shortness of breath MD elicited complaint: fever, cough, sore throat, rhinorrhea, nasal congestion and other (Body aches, chills) Related Data Home Medications Medication Instructions Recorded Confirmed sertraline 50 mg tablet 50 mg PO DAILY 04/22/22 01/29/23 levonorgestrel-ethinyl estradiol 1 tablet DIRECTED 12/16/22 01/29/23 0.1 mg-20 mcg tablet (Aviane) sumatriptan succinate 50 mg tablet See Rx Instructions PO .COMPLEX 12/29/22 01/29/23 (Imitrex) ubrogepant 50 mg tablet (Ubrelvy) 50 mg PO DAILY PRN Migraine 01/04/23 01/29/23 Headache Allergies Allergy/AdvReac Type Severity Reaction Status Date / Time No Known Allergies Allergy Verified 01/29/23 08:38 Review of Systems Review of Systems: Pertinent positives per HPI. Patient denies any rash, headache, visual changes, dizziness, shortness of breath, chest pain, palpitations, nausea, vomiting, diarrhea, constipation, abdominal pain, or any urinary issues. PMFSH Past Medical History Medical History Anal fissure Hematochezia No pertinent past medical history Rectal pain Family History Family History Mother Diabetes mellitus Social History Social History Smoking status: Never smoker Alcohol intake: current Drinks per week: 2 Substance use: never Substance use type: does not use Lack of Transportation: No Lack of Food: Never True Current Housing: I Have Housing Concerned About Future Housing: No Difficulty Paying Gas/Electric Bills: No Difficulty Paying for Meds: No Currently Unemployed: No Education: Master's Degree or Higher Difficulty w/ Childcare or Family Care: No Living arrangements: with family Spiritual care concerns: No Comments At the time of my signature, I reviewed and agree with the nursing past medical, surgical, social, and family history. There is no relevant family history pertinent to the patient complaint. Exam Narrative: General: Well-developed, well nourished, in no apparent distress Head: Normocephalic, atraumatic Eyes: Pupils equally round and reactive to light bilaterally, EOM intact, sclera and conjunctive clear, no discharge, lids normal Ears: TMs intact and clear, ear canals clear, no drainage, grossly hearing normal. Nose: Nares patent, clear discharge, mild inflammation, no sinus tenderness. Mouth: Oropharynx red without lesions or masses, good dentition, MMM. Neck: Supple, trachea midline, no enlargement of anterior or posterior cervical nodes, no thyroid masses or goiter palpable. Cardio: Regular rate and rhythm, s1 and s2 normal, no murmur appreciated. Resp: Clear to auscultation bilaterally anteriorly and posteriorly, no rhonchi, rales, wheezing or rubs Course Course Emergency Course: Portions of this record may have been created with voice recognition software. Level of Care: Express Care Visit Vital Signs Vital signs: Vital signs reviewed MDM - URI/Sore Throat MDM Narrative Medical decision making narrative: At the time of visit patient is resting comfortably on the exam table. Patient appears to be nontoxic. COVID, influenza, and strep test were performed. All testing was negative. I suspect patient has URI/pharyngitis/viral syndrome. Supportive measures we
[2023-01-29 08:26] VITALS: BP 118/83; PULSE 106; RESP 16; TEMP 36.3; O2SAT 100
== END 2023-01-29 08:51 | disposition home or self-care (01) ==
PROVIDERS: Emergency Provider Nurse Practitioner Family; PCP Physician Assistant
DX: B34.9 Viral infection, unspecified (principal); J06.9 Acute upper respiratory infection, unspecified; Z20.822 Contact with and (suspected) exposure to COVID-19; Z79.899 Other long term (current) drug therapy
CPT/HCPCS: 87081; 87426; 87804; 87880; 99213; C9803; G0463

== ENCOUNTER 2023-02-18 13:40 | Emergency (ER) | payer OTHER, SELFPAY ==
[2023-02-18 13:51] VITALS: BP 116/88; PULSE 87; RESP 18; TEMP 36.7; O2SAT 100
--- NOTE | 2023-02-18 14:22 | ED.EAR ---
HPI - Ear Problem General Chief complaint: Ear Stated complaint: ear pressure pain/drainage Source: patient, RN notes reviewed and old records reviewed Mode of arrival: ambulatory Limitations: no limitations History of Present Illness HPI Narrative: 32-year-old female presents to [facility] with complaints left ear pain, pressure, ringing this started 2-3 days ago it is worsening, and is now having yellow discharge from ear Patient states has had slight congestion for the last week. MD Complaint: ear pain and ear discharge Location: left ear Related Data Home Medications Medication Instructions Recorded Confirmed sertraline 50 mg tablet 50 mg PO DAILY 04/22/22 01/29/23 levonorgestrel-ethinyl estradiol 1 tablet DIRECTED 12/16/22 01/29/23 0.1 mg-20 mcg tablet (Aviane) sumatriptan succinate 50 mg tablet See Rx Instructions PO .COMPLEX 12/29/22 01/29/23 (Imitrex) ubrogepant 50 mg tablet (Ubrelvy) 50 mg PO DAILY PRN Migraine 01/04/23 01/29/23 Headache 02/18/23 Allergies Allergy/AdvReac Type Severity Reaction Status Date / Time No Known Allergies Allergy Verified 01/29/23 08:38 Review of Systems Constitutional: Constitutional: Reports no additional constitutional complaints, Denies body ache(s), Denies chills, Denies fatigue, Denies fever(s) and Denies headache(s) Eyes: Eyes: Reports no additional eye complaints and Denies blurry vision ENT: Reports system reviewed and no additional complaints, except as documented, Denies vertigo, Denies dizziness, Reports ear discharge, Reports otalgia, Denies facial pain, Denies headache(s), Reports nasal congestion, Denies nasal discharge, Denies sinus pain, Denies sinus pressure and Denies sore throat Cardiovascular: Cardiovascular: Reports no additional cardiovascular complaints, Denies chest pain, Denies chest pain at rest, Denies rapid heart rate and Denies dyspnea Respiratory: Respiratory: Reports no additional respiratory complaints, Denies chest congestion, Denies cough, Denies pain on inspiration, Denies pain with cough and Denies dyspnea Gastrointestinal: Gastrointestinal: Denies abdominal pain, Denies diarrhea, Denies nausea and Denies vomiting Integumentary/Breasts: Skin/Breast: Denies rash Neurologic: Reports system reviewed and no additional complaints, except as documented, Denies vertigo, Denies dizziness and Denies headache(s) Endocrine: Endocrine: Denies fatigue PMFSH Past Medical History Medical History Anal fissure Hematochezia No pertinent past medical history Rectal pain Family History Family History Mother Diabetes mellitus Social History Social History Smoking status: Never smoker Alcohol intake: current Drinks per week: 2 Substance use: never Substance use type: does not use Lack of Transportation: No Lack of Food: Never True Current Housing: I Have Housing Concerned About Future Housing: No Difficulty Paying Gas/Electric Bills: No Difficulty Paying for Meds: No Currently Unemployed: No Education: Master's Degree or Higher Difficulty w/ Childcare or Family Care: No Living arrangements: with family Spiritual care concerns: No Comments At the time of my signature, I reviewed and agree with the nursing past medical, surgical, social, and family history. There is no relevant family history pertinent to the patient complaint. Exam Const: General: cooperative, healthy appearing, no acute distress and well nourished Nutritional Appearance: well nourished Orientation/consciousness: patient oriented x3 Limitations: no limitations HENMT: Head: normal to inspection and normocephalic Ears: external ears normal, TM normal on the right, mastoids normal, Abnormal EAC present and TM abnormal erythematous on the left and with fluid
== END 2023-02-18 14:28 | disposition home or self-care (01) ==
PROVIDERS: Emergency Provider Registered Nurse; PCP Physician Assistant
DX: H66.002 Acute suppurative otitis media without spontaneous rupture of ear drum, left ear (principal)
CPT/HCPCS: 99213; G0463

== ENCOUNTER 2024-04-23 12:13 | Day surgery (SDC) | payer OTHER, SELFPAY ==
[2024-04-23] VITALS (11 sets, daily range): BP systolic 94–131; BP diastolic 66–83; PULSE 74–150; RESP 15–20; TEMP 36.5–36.8; O2SAT 98–100
--- NOTE | ~2024-04-23 | US_ITS ---
EXAMINATION: US pelvic complete w TV DATE: 04/23/2024 14:26 INDICATION: POST MISCARRIAGE BLEEDING TECHNIQUE: Multiple transabdominal and endovaginal sonographic images of the pelvis were obtained. COMPARISON: None. FINDINGS: Uterus: 13.3 x 5.9 x 5.0 cm. Slightly heterogeneous, mostly echogenic material distends the endometri al canal to 12 mm at the uterine body, with small anechoic areas that may represent fluid, extending into the the endocervical canal and apparently through the external os. Endometrial complex measures 12 mm. Right Ovary: Not visualized. No adnexal mass. Left Ovary: 3.7 x 2.1 x 1.9 cm. Vascular flow is present. No adnexal mass. There is no free fluid in the pelvis. IMPRESSION: Echogenic endometrial cavity and endocervical material with a small fluid component, which may repres ent blood/clot or retained products. Apparent extension through the external cervical os, correlate c linically. Reviewed, dictated and finalized at location K. IMPRESSION: Echogenic endometrial cavity and endocervical material with a small fluid compo nent, which may represent blood/clot or retained products. Apparent extension t hrough the external cervical os, correlate clinically.
--- OUTSIDE RECORDS SUMMARY | 2024-04-23 12:15 | XMS_ITS ---
Author Organization [facility] Address [address] [place] [address] Phone Care Team Providers Care Employment Clerk Name Role Phone CHERYL MONTOYA, AARON VAZQUEZ, ELE Primary Care Provider [phone] Plan of Treatment Findings Encounter Date Ordered goals, options, limi tations and risks of therapy WALK-IN CLINIC SICK VISIT with MAURICE OLIVIA TILE PICKER-C 06/13/2019 Last Documented On 0 7:37PM ; [facility] Ordered patient will call fo r appointment as needed WALK-IN CLINIC SICK VISIT with MAURICE OLIVIA TILE PICKER-C 06/13/2019 Last Documented On 0 7:37PM ; [facility] Ordered return to the clinic if condition worsens or new symptoms arise WALK-IN CLINIC SICK VISIT with MAURICE OLIVIA TILE PICKER-C 06/13/2019 Last Documented On 0 7:37PM ; [facility] Assessments Includes: Assessments for all patient encounters Findings Encounter Date Dysuria WALK-IN CLINIC SICK VISIT with Yudith OLIVIA TILE PICKER-C 06/13/2019 Last Documented On 0 7:37PM ; [facility] Urinary tract infection WALK-IN CLINIC S ICK VISIT with MAURICE OLIVIA TILE PICKER-C 06/13/2019 Last Documented On 0 7:37PM ; [facility] Medical Equipment - Implanted Devices Includes: Current and historical Devices No Medical Equipment Recorded Medications Includes: Current and historical Medications Current Medications (continue as prescribed) AZO Cranberry Urinary Tract 250-60 MG Oral Capsule 06/2019 Provider: Diagnosis: PRN-UTI Last Documented On 06/13/2019 7:26PM By ETIENNE BAXTER ; [facility] Macrobid 100 MG Oral Capsule 06/13/2019 Provider: MAURICE Brown NP-C Diagnosis: Urinary tract in fection, site not specified One tablet twice a day Last Documented On 0 9:39PM By Maurice MARTINEZP-C ; [facility] Medications Administered Includes: Administered Medications in patient's chart No Administered Medications Recorded Results Includes: Results from 04/24/2023 through 04/23/2024 No Results Recorded For Specified Dates History of Present Illness History of Present Illness not supported for this document type No History of Present Illness Recorded Social History No Social History Recorded - Smoking Status Unknown Medical History Includes: Medical History in patient's chart No Medical History Recorded Family History Includes: Family History in patient's chart No Family History Recorded Review of Systems Review of Systems not supported for this document type No Review of Systems Recorded Mental Status Description Oriented to time, place, and person Functional Status No Functional Status Recorded Physical Exam Physical Exam not supported for this document type No Physical Exam Recorded Allergies Includes: Active, inactive, and resolved Allergies No Known Allergies Insurance Includes: Active Insurance Policies Plan Name Member ID Group # Subscriber Relationship Effect clayton Dates 1 - [facility] [id number] GRANT MONTERO Clinical Notes Includes: Signed Clinical Notes starting from 02/27/2022 No Clinical Notes Recorded
--- OUTSIDE RECORDS SUMMARY | 2024-04-23 12:15 | XMS_ITS | Data Portability ---
Author Organization [place] [facility], Main Office Address [address] [place] [address] Assessment No assessment recorded. Plan of Treatment Reminders Order Date Submit Date Provider Last Modified By Organization Details Last Modified Time Details Appointments None recorded. Lab vitamin D, 25-hydroxy, total, serum 2022 023 YARA [facility], [address] [place] [address], [facility], [place], [address], 3 07:18:39 lipid panel, serum 2022 023 [facility], [address] [place] [address], [facility], [place], [address], 3 07:18:37 CBC w/ auto diff 2022 023 [facility], [address] [place] [address], [facility], [place], [address], 3 07:18:41 CMP, serum or plasma 2022 023 [facility], [address] [place] [address], [facility], [place], [address], 3 07:18:38 TSH + free T4, serum 2022 023 [facility], [address] [place] [address], [facility], [place], [address], 3 07:18:36 Referral None recorded. Procedures None recorded. Surgeries None recorded. Imaging None recorded. Medication Orders sumatriptan 50 mg tablet 2022 023 YARA [facility], [address] [facility], [place], [address], 3 15:10:15 Ubrelvy 50 mg tablet 2022 023 [email or web address] [facility], [address] [facility], [place], [address], 3 18:58:47 Patient TargetsNo targets recorded. Patient InstructionsNo instructions recorded. Reason for Referral None Reported. Results Created Date Observation Date Name Description Value Unit Range Abnormal Flag Note LastModifiedBy Organization Detail LastModifiedTime 11/23/1911/27/2020 CBC (INCL UDES DIFF/ PLT) white blood cell count 5.3 thous and/u L 3.8-10 .8 normal Not Available [address], [address], 11/27/2020 15:42:06 11/23/1911/27/2020 CBC (INCL UDES DIFF/ PLT) red blood cell count 4.23 montrell on/uL 3.80-5 .10 normal Not Available [address], [address], 11/27/2020 15:42:06 11/23/1911/27/2020 CBC (INCL UDES DIFF/ PLT) hemoglobin 13.5 g/dL 11.7-1 5.5 normal Not Available [address], [address], 11/27/2020 15:42:06 11/23/1911/27/2020 CBC (INCL UDES DIFF/ PLT) hematocrit 41.5 % 35.0-4 5.0 normal Not Available [address], [address], 11/27/2020 15:42:06 11/23/1911/27/2020 CBC (INCL UDES DIFF/ PLT) MCV 98.1 fL 80.0-1 00.0 normal Not Available [address], [address], 11/27/2020 15:42:06 11/23/1911/27/2020 CBC (INCL UDES DIFF/ PLT) MCH 31.9 pg 27.0-3 3.0 normal Not Available [address], [address], 11/27/2020 15:42:06 11/23/1911/27/2020 CBC (INCL UDES DIFF/ PLT) MCHC 32.5 g/dL 32.0-3 6.0 normal Not Available [address], [address], 11/27/2020 15:42:06 11/23/1911/27/2020 CBC (INCL UDES DIFF/ PLT) RDW 12.1 % 11.0-1 5.0 normal Not Available [address], [address], 11/27/2020 15:42:06 11/23/1911/27/2020 CBC (INCL UDES DIFF/ PLT) platelet count 211 thous and/u L 140-40 0 normal Not Available [address], [address], 11/27/2020 15:42:06 11/23/1911/27/2020 CBC (INCL UDES DIFF/ PLT) MPV 12.4 fL 7.5-12 .5 normal Not Available [address], [address], 11/27/2020 15:42:06 11/23/1911/27/2020 CBC (INCL UDES DIFF/ PLT) absolute neutrophils 2173 cells /uL 1500-7 800 normal Not Available [address], [address], 11/27/2020 15:42:06 11/23/1911/27/2020 CBC (INCL UDES DIFF/ PLT) absolute lymphocytes 2602 cells /uL 850-39 00 normal Not Available [address], [address], 11/27/2020 15:42:06 11/23/1911/27/2020 CBC (INCL UDES DIFF/ PLT) absolute monocytes 461 cells /uL 200-95 0 normal Not Available [address], [address], 11/27/2020 15:42:06 11/23/1911/27/2020 CBC (INCL UDES DIFF/ PLT) absolute eosinophils 21 cells /uL 15-500 normal Not Available [address], [address], 11/27/2020 15:42:06 11/23/1911/27/2020 CBC (INCL UDES DIFF/ PLT) absolute basophils 42 cells /uL 0-200 normal Not Available [address], [address], 11/27/2020 15:42:06 11/23/1911/27/2020 CBC (INCL UDES DIFF/ PLT) neutrophils 41 % normal Not Available [address], [address], 11/27/2020 15:42:06 11/23/1911/27/2020 CBC (INCL UDES DIFF/ PLT) lymphocytes 49.1 % normal Not Available [address], [address], 11/27/2020 15:42:06 11/23/1911/27/2020 CBC (INCL UDES DIFF/ PLT) monocytes 8.7 % normal Not Available [address], [address], 11/27/2020 15:42:06 11/23/19 21 11/27/2020 CBC (INCL UDES DIFF/ PLT) eosinophils 0.4 % normal Not Available [address], [address], 11/27/2020 15:42:06 11/23/19 21 11/27/2020 CBC (INCL UDES DIFF/ PLT) basophils 0.8 % normal Not Available [address], [address], 11/27/2020 15:42:06 11/23/1911/27/2020 REFLE XIVE URINE CULTU RE reflexive urine culture NO CULTU RE INDIC ATED Not Available [address], [address], 11/27/2020 09:14:22 11/23/1911/27/2020 URINA LYSIS , COMPL ETE W/REF CORDELL TO CULTU RE bilirubin negati ve negati ve normal Not Available [address], [address], 11/27/2020 09:14:21 11/23/1911/27/2020 URINA LYSIS , COMPL ETE W/REF CORDELL TO CULTU RE ketones negati ve negati ve normal Not Available [address], [address], 11/27/2020 09:14:21 11/23/1911/27/2020 URINA LYSIS , COMPL ETE W/REF CORDELL TO CULTU RE occult blood negati ve negati ve normal Not Available [address], [address], 11/27/2020 09:14:21 11/23/1911/27/2020 URINA LYSIS , COMPL ETE W/REF CORDELL TO CULTU RE protein negati ve negati ve normal Not Available [facility] [address], [place], [address], 11/27/2020 09:14:21 11/23/1911/27/2020 URINA LYSIS , COMPL ETE W/REF CORDELL TO CULTU RE nitrite negati ve negati ve normal Not Available [address], [address], 11/27/2020 09:14:21 11/23/1911/27/2020 URINA LYSIS , COMPL ETE W/REF CORDELL TO CULTU RE leukocyte esterase negati ve negati ve normal Not Available [address], [address], 11/27/2020 09:14:21 11/23/1911/27/2020 URINA LYSIS , COMPL ETE W/REF CORDELL TO CULTU RE WBC none seen /hpf < or = 5 normal Not Available [address], [address], 11/27/2020 09:14:21 11/23/1911/27/2020 URINA LYSIS , COMPL ETE W/REF CORDELL TO CULTU RE RBC 0-2 /hpf < or = 2 normal Not Available [address], [address], 11/27/2020 09:14:21 11/23/1911/27/2020 URINA LYSIS , COMPL ETE W/REF CORDELL TO CULTU RE squamous epithelial cells 0-5 /hpf < or = 5 Not Available [address], [address], 11/27/2020 09:14:21 11/23/1911/27/2020 URINA LYSIS , COMPL ETE W/REF CORDELL TO CULTU RE bacteria none seen /hpf none seen normal Not Available [address], [address], 11/27/2020 09:14:21 11/23/1911/27/2020 URINA LYSIS , COMPL ETE W/REF CORDELL TO CULTU RE hyaline cast none seen /lpf none seen normal Not Available [address], [address], 11/27/2020 09:14:21 11/23/1911/27/2020 URINA LYSIS , COMPL ETE W/REF CORDELL TO CULTU RE color yellow yellow normal Not Available [address], [address], 11/27/2020 09:14:21 11/23/1911/27/2020 URINA LYSIS , COMPL ETE W/REF CORDELL TO CULTU RE appearance clear clear normal Not Available [address], [address], 11/27/2020 09:14:21 11/23/1911/27/2020 URINA LYSIS , COMPL ETE W/REF CORDELL TO CULTU RE specific gravity 1.019 1.001- 1.035 normal Not Available [address], [address], 11/27/2020 09:14:21 11/23/1911/27/2020 URINA LYSIS , COMPL ETE W/REF CORDELL TO CULTU RE pH 7.0 5.0-8. 0 normal Not Available [address], [address], 11/27/2020 09:14:21 11/23/1911/27/2020 URINA LYSIS , COMPL ETE W/REF CORDELL TO CULTU RE glucose negati ve negati ve normal Not Available [address], [address], 11/27/2020 09:14:21 11/23/1911/27/2020 T4, FREE T4, free 1.2 NG/dL 0.8-1. 8 normal Not Available [facility] [address] [place], [address], 11/27/2020 09:14:20 11/23/19 21 11/27/2020 TSH TSH 2.43 mIU/L normal Refer ence Range > or = 20 Years 0.40- 4.50 Pregn pee Range s First trime ster 0.26- 2.66 Secon d trime ster 0.55- 2.73 Third trime ster 0.43- 2.91 Not Available [facility] [address] [place], [address], 11/27/2020 09:14:19 11/23/1911/27/2020 HEMOG LOBIN A1C hemoglobin A1C 4.9 %_of_ total _HGB <5.7 normal For the purpo se of scresveta madhav for the prese nce of diabe nasim: <5.7% Consi stent with the absen ce of diabe nasim 5.7-6 .4% Consi stent with incre ased risk for diabe nasim (pred iabet es) > or =6.5% Consi stent with diabe nasim This assay resul t is consi stent with a decre ased risk of diabe nasim. Curre ntly, no conse nsus exist philip ledbetter use of hemog lobin A1c for diagn osis of diabe nasim in child camelia. Accor ding to Ameri can Diabe nasim Assoc iatio n (ADA) guide lines , hemog lobin A1c <7.0% repre sents optim al contr ol in non-p regna nt diabe tic patie nts. Diffe rent metri cs may apply to speci fic patie nt popul ation s. Stand ards of Medic al Care in Diabe nasim(A DA). Not Available [facility] [address] [place], [address], 11/27/2020 09:14:18 11/23/19 21 11/27/2020 ADD ON COMPR EHENS KALLIE METAB OLIC PANEL glucose 81 mg/dL 65-99 normal Fasti ng refer ence inter lindsey Not Available [address], [address], 11/27/2020 09:14:17 11/23/19 21 11/27/2020 ADD ON COMPR EHENS KALLIE METAB OLIC PANEL urea nitrogen (BUN) 11 mg/dL 7-25 normal Not Available [address], [address], 11/27/2020 09:14:17 11/23/19 21 11/27/2020 ADD ON COMPR EHENS KALLIE METAB OLIC PANEL creatinine 0.89 mg/dL 0.50-1 .10 normal Not Available [address], [address], 11/27/2020 09:14:17 11/23/19 21 11/27/2020 ADD ON COMPR EHENS KALLIE METAB OLIC PANEL eGFR non-afr. bulgarian 88 mL/mi n/1.7 3m2 > or = 60 normal Not Available [address], [address], 11/27/2020 09:14:17 11/23/19 21 11/27/2020 ADD ON COMPR EHENS KALLIE METAB OLIC PANEL eGFR 102 mL/mi n/1.7 3m2 > or = 60 normal Not Available [address], [address], 11/27/2020 09:14:17 11/23/19 21 11/27/2020 ADD ON COMPR EHENS KALLIE METAB OLIC PANEL BUN/creatini ne ratio not applic able (calc ) 6-22 Not Available [address], [address], 11/27/2020 09:14:17 11/23/19 21 11/27/2020 ADD ON COMPR EHENS KALLIE METAB OLIC PANEL sodium 138 mmol/ L 135-14 6 normal Not Available [address] [address] [place], [address], 11/27/2020 09:14:17 11/23/1911/27/2020 ADD ON COMPR EHENS KALLIE METAB OLIC PANEL potassium 4.5 mmol/ L 3.5-5. 3 normal Not Available [address] [address] [place], [address], 11/27/2020 09:14:17 11/23/19 21 11/27/2020 ADD ON COMPR EHENS KALLIE METAB OLIC PANEL chloride 104 mmol/ L 98-110 normal Not Available [address], [address], 11/27/2020 09:14:17 11/23/19 21 11/27/2020 ADD ON COMPR EHENS KALLIE METAB OLIC PANEL carbon dioxide 24 mmol/ L 20-32 normal Not Available [address] [address] [place], [address], 11/27/2020 09:14:17 11/23/19 21 11/27/2020 ADD ON COMPR EHENS KALLIE METAB OLIC PANEL calcium 9.3 mg/dL 8.6-10 .2 normal Not Available [address] [address] [place], [address], 11/27/2020 09:14:17 11/23/1911/27/2020 ADD ON COMPR EHENS KALLIE METAB OLIC PANEL protein, total 7.4 g/dL 6.1-8. 1 normal Not Available [address] [address] [place], [address], 11/27/2020 09:14:17 11/23/19 21 11/27/2020 ADD ON COMPR EHENS KALLIE METAB OLIC PANEL albumin 4.4 g/dL 3.6-5. 1 normal Not Available [address] [address] [place], [address], 11/27/2020 09:14:17 11/23/19 21 11/27/2020 ADD ON COMPR EHENS KALLIE METAB OLIC PANEL globulin 3.0 g/dL_ (calc ) 1.9-3. 7 normal Not Available [address], [address], 11/27/2020 09:14:17 11/23/19 21 11/27/2020 ADD ON COMPR EHENS KALLIE METAB OLIC PANEL albumin/glob ulin ratio 1.5 (calc ) 1.0-2. 5 normal Not Available [address], [address], 11/27/2020 09:14:17 11/23/19 21 11/27/2020 ADD ON COMPR EHENS KALLIE METAB OLIC PANEL bilirubin, total 0.5 mg/dL 0.2-1. 2 normal Not Available [address], [address], 11/27/2020 09:14:17 11/23/19 21 11/27/2020 ADD ON COMPR EHENS KALLIE METAB OLIC PANEL alkaline phosphatase 46 U/L 31-125 normal Not Available [address], [address], 11/27/2020 09:14:17 11/23/19 21 11/27/2020 ADD ON COMPR EHENS KALLIE METAB OLIC PANEL AST 18 U/L 10-30 normal Not Available [address], [address], 11/27/2020 09:14:17 11/23/19 21 11/27/2020 ADD ON COMPR EHENS KALLIE METAB OLIC PANEL ALT 13 U/L 6-29 normal Not Available [address], [address], 11/27/2020 09:14:17 11/23/19 21 11/27/2020 ADD ON COMPR EHENS KALLIE METAB OLIC PANEL comment An add-o n panel was reque sted on a serum sampl e that has been in stora ge beyon d the publi shed stabi lity of vario us serenity nasim. Certa in serenity nasim, inclu ding CO2, Potas sium, Sodiu m, Chlor mary kate and Total Bilir ubin (if appli cable ) are more sensi tive to exten ded stora ge. Clini jewel corre latio n is recom bubba d for those tests . Not Available [facility] [address] [address] [place], [address], 11/27/2020 09:14:17 11/23/1911/27/2020 LIPID PANEL , STAND CESAR cholesterol, total 231 mg/dL <200 high Not Available [facility] [address] [address] [place], [address], 11/27/2020 09:14:17 11/23/1911/27/2020 LIPID PANEL , STAND CESAR HDL cholesterol 95 mg/dL > or = 50 normal Not Available [facility] [address] [address] [place], [address], 11/27/2020 09:14:17 11/23/1911/27/2020 LIPID PANEL , STAND CESAR triglyceride s 115 mg/dL <150 normal Not Available [facility] [address] [address] [place], [address], 11/27/2020 09:14:17 11/23/1911/27/2020 LIPID PANEL , STAND CESAR LDL-choleste rol 113 mg/dL _(jewel c) high Refer ence range : <100 Jimi able range <100 mg/dL for prima ry preve ntion ; <70 mg/dL for patie nts with CHD or diabe tic patie nts with > or = 2 CHD risk facto rs. LDL-C is now calcu lated using the Nidia n-Hop kins calcu mahi n, which is a valid ated novel metho d provi ding lesley r accur acy than the Fried pavel equat ion in the estim ation of LDL-C . Nidia n SS et al. TRINH. 2013; 310(1 9): 2061- 2068 (http ://ed ucati on.Qu Barber holland. com/f aq/FA Q164) Not Available [facility] [address], [place], [address], 11/27/2020 09:14:17 11/23/1911/27/2020 LIPID PANEL , STAND CESAR chol/HDLC ratio 2.4 (calc ) <5.0 normal Not Available [facility] [address], [place], [address], 11/27/2020 09:14:17 11/23/1911/27/2020 LIPID PANEL , STAND CESAR non HDL cholesterol 136 mg/dL _(jewel c) <130 high For patie nts with diabe nasim plus 1 major ASCVD risk facto r, treat ing to a non-H DL-C goal of <100 mg/dL (LDL- C of <70 mg/dL ) is consi dered a thera peuti c optio n. Not Available [facility] [address] , [place], [address], 11/27/2020 09:14:17 11/23/1911/26/2020 HOUSE ACCOU NT TRACK ING tracking house account We were unabl e to ident varun an accou nt numbe r for the order submi tted. If you do not have a [facility] accou nt numbe r or if your accou nt infor matio n needs to be updat ed pleas e call [phone] for maury tance . To preve nt delay s in testi ng and proce ssing of your order s pleas e provi de the follo wing infor matio n for this order and with every addit ional order submi tted: [facility] accou nt numbe r and accou nt name Clien t addre ss Clien t phone and fax numbe r NPI numbe r of order ing physi hanh along with the physi hanh name. Not Available [address] [address] [place], [address], 11/26/2020 16:14:13 01/02/2001/02/2023 TSH+F REE T4 TSH 1.78 mIU/L normal Refer ence Range > or = 20 Years 0.40- 4.50 Pregn pee Range s First trime ster 0.26- 2.66 Secon d trime ster 0.55- 2.73 Third trime ster 0.43- 2.91 Not Available [address], [address], 01/02/2023 07:18:36 01/02/2001/02/2023 TSH+F REE T4 T4, free 1.2 NG/dL 0.8-1. 8 normal Not Available [address], [address], 01/02/2023 07:18:36 01/02/20 23 01/02/2023 LIPID PANEL , STAND CESAR cholesterol, total 192 mg/dL <200 normal Not Available [address], [address], 01/02/2023 07:18:37 01/02/20 23 01/02/2023 LIPID PANEL , STAND CESAR HDL cholesterol 61 mg/dL > or = 50 normal Not Available [address], [address], 01/02/2023 07:18:37 01/02/20 23 01/02/2023 LIPID PANEL , STAND CESAR triglyceride s 103 mg/dL <150 normal Not Available [address], [address], 01/02/2023 07:18:37 01/02/20 23 01/02/2023 LIPID PANEL , STAND CESAR LDL-choleste rol 110 mg/dL _(jewel c) high Refer ence range : <100 Jimi able range <100 mg/dL for prima ry preve ntion ; <70 mg/dL for patie nts with CHD or diabe tic patie nts with > or = 2 CHD risk facto rs. LDL-C is now calcu lated using the Nidia n-Hop kins calcu kellymargarita n, which is a valid ated novel metho d provi ding lesley r accur acy than the Fried pavel equat ion in the estim ation of LDL-C . Nidia akhtar SS et al. TRINH. 2013; 310(1 9): 2061- 206 (http ://ed ucati on.[employer]. com/f aq/FA Q164) Not Available [facility] [address] [address] [address], [place], [address], 01/02/2023 07:18:37 01/02/20 23 01/02/2023 LIPID PANEL , STAND CESAR chol/HDLC ratio 3.1 (calc ) <5.0 normal Not Available [facility] [address] [address] [address], [place], [address], 01/02/2023 07:18:37 01/02/20 23 01/02/2023 LIPID PANEL , STAND CESAR non HDL cholesterol 131 mg/dL _(jewel c) <130 high For patie nts with diabe nasim plus 1 major ASCVD risk facto r, treat ing to a non-H DL-C goal of <100 mg/dL (LDL- C of <70 mg/dL ) is consi ektad a kevin roberts c optio n. Not Available [facility] [address] [address], [place], [address], 01/02/2023 07:18:37 01/02/20 23 01/02/2023 COMPR EHENS KALLIE METAB OLIC PANEL glucose 87 mg/dL 65-99 normal Fasti ng refer ence inter lindsey Not Available [facility] [address] [address] [place], [address], 01/02/2023 07:18:38 01/02/20 23 01/02/2023 COMPR EHENS KALLIE METAB OLIC PANEL urea nitrogen (BUN) 10 mg/dL 7-25 normal Not Available [address], [address], 01/02/2023 07:18:38 01/02/20 23 01/02/2023 COMPR EHENS KALLIE METAB OLIC PANEL creatinine 0.82 mg/dL 0.50-0 .97 normal Not Available [address], [address], 01/02/2023 07:18:38 01/02/20 23 01/02/2023 COMPR EHENS KALLIE METAB OLIC PANEL eGFR 98 mL/mi n/1.7 3m2 > or = 60 normal Not Available [address], [address], 01/02/2023 07:18:38 01/02/20 23 01/02/2023 COMPR EHENS KALLIE METAB OLIC PANEL BUN/creatini ne ratio SEE NOTE: (calc ) 6-22 Not Repor carmen: BUN and Creat inine are withi n refer ence range . Not Available [address], [address], 01/02/2023 07:18:38 01/02/20 23 01/02/2023 COMPR EHENS KALLIE METAB OLIC PANEL sodium 137 mmol/ L 135-14 6 normal Not Available [address], [address], 01/02/2023 07:18:38 01/02/20 23 01/02/2023 COMPR EHENS KALLIE METAB OLIC PANEL potassium 3.9 mmol/ L 3.5-5. 3 normal Not Available [address], [address], 01/02/2023 07:18:38 01/02/20 23 01/02/2023 COMPR EHENS KALLIE METAB OLIC PANEL chloride 103 mmol/ L 98-110 normal Not Available [address], [address], 01/02/2023 07:18:38 01/02/20 23 01/02/2023 COMPR EHENS KALLIE METAB OLIC PANEL carbon dioxide 26 mmol/ L 20-32 normal Not Available [address], [address], 01/02/2023 07:18:38 01/02/20 23 01/02/2023 COMPR EHENS KALLIE METAB OLIC PANEL calcium 8.5 mg/dL 8.6-10 .2 low Not Available [address], [address], 01/02/2023 07:18:38 01/02/20 23 01/02/2023 COMPR EHENS KALLIE METAB OLIC PANEL protein, total 6.9 g/dL 6.1-8. 1 normal Not Available [address], [address], 01/02/2023 07:18:38 01/02/20 23 01/02/2023 COMPR EHENS KALLIE METAB OLIC PANEL albumin 4.1 g/dL 3.6-5. 1 normal Not Available [address], [address], 01/02/2023 07:18:38 01/02/20 23 01/02/2023 COMPR EHENS KALLIE METAB OLIC PANEL globulin 2.8 g/dL_ (calc ) 1.9-3. 7 normal Not Available [address], [address], 01/02/2023 07:18:38 01/02/20 23 01/02/2023 COMPR EHENS KALLIE METAB OLIC PANEL albumin/glob ulin ratio 1.5 (calc ) 1.0-2. 5 normal Not Available [address] [place], [address], 01/02/2023 07:18:38 01/02/20 23 01/02/2023 COMPR EHENS KALLIE METAB OLIC PANEL bilirubin, total 0.3 mg/dL 0.2-1. 2 normal Not Available [address] [address] [place], [address], 01/02/2023 07:18:38 01/02/20 23 01/02/2023 COMPR EHENS KALLIE METAB OLIC PANEL alkaline phosphatase 57 U/L 31-125 normal Not Available [facility] [address] [address] [place], [address], 01/02/2023 07:18:38 01/02/20 23 01/02/2023 COMPR EHENS KALLIE METAB OLIC PANEL AST 13 U/L 10-30 normal Not Available [address], [address], 01/02/2023 07:18:38 01/02/20 23 01/02/2023 COMPR EHENS KALLIE METAB OLIC PANEL ALT 10 U/L 6-29 normal Not Available [address], [address], 01/02/2023 07:18:38 01/02/20 23 01/02/2023 VITAM IN D,25- OH,TO VON,I A vitamin D,25-oh,tota l,ia 38 NG/mL 30-100 normal Vitam in D Statu s 25-OH Vitam in D: Defic iency : <20 ng/mL Insuf ficie ncy: 20 - 29 ng/mL Optim al: > or = 30 ng/mL For 25-OH Vitam in D testi ng on patie nts on D2-kenyon pplem entat ion and patie nts for whom quant itati on of D2 and D3 fract ions is requi red, the [facility] e[facility](TM ) 25-OH VIT D, (D2,D 3), LC/MS /MS is recom bubba d: order code 13947 (soni ents >2yrs ). See Note 1 Note 1 For addit ional infor divya lockett e refer to http: //[email or web address] lacey bullard ics.c om/fa q/FAQ 199 (This link is being provi ded for infor angelica mckenna/ educvictoria byers purpo ses only. ) Not Available [address], [address], 01/02/2023 07:18:39 01/02/20 23 01/02/2023 CBC (INCL UDES DIFF/ PLT) white blood cell count 8.1 thous and/u L 3.8-10 .8 normal Not Available [address], [address], 01/02/2023 07:18:40 01/02/2001/02/2023 CBC (INCL UDES DIFF/ PLT) red blood cell count 3.98 montrell on/uL 3.80-5 .10 normal Not Available [address], [address], 01/02/2023 07:18:40 01/02/20 23 01/02/2023 CBC (INCL UDES DIFF/ PLT) hemoglobin 12.4 g/dL 11.7-1 5.5 normal Not Available [address], [address], 01/02/2023 07:18:40 01/02/20 23 01/02/2023 CBC (INCL UDES DIFF/ PLT) hematocrit 37.4 % 35.0-4 5.0 normal Not Available [address], [address], 01/02/2023 07:18:40 01/02/20 23 01/02/2023 CBC (INCL UDES DIFF/ PLT) MCV 94.0 fL 80.0-1 00.0 normal Not Available [address], [address], 01/02/2023 07:18:40 01/02/20 23 01/02/2023 CBC (INCL UDES DIFF/ PLT) MCH 31.2 pg 27.0-3 3.0 normal Not Available [address], [address], 01/02/2023 07:18:40 01/02/2001/02/2023 CBC (INCL UDES DIFF/ PLT) MCHC 33.2 g/dL 32.0-3 6.0 normal Not Available [address], [address], 01/02/2023 07:18:40 01/02/2001/02/2023 CBC (INCL UDES DIFF/ PLT) RDW 13.9 % 11.0-1 5.0 normal Not Available [address], [address], 01/02/2023 07:18:40 01/02/20 23 01/02/2023 CBC (INCL UDES DIFF/ PLT) platelet count 204 thous and/u L 140-40 0 normal Not Available [address], [address], 01/02/2023 07:18:40 01/02/2001/02/2023 CBC (INCL UDES DIFF/ PLT) MPV 12.6 fL 7.5-12 .5 high Not Available [address], [address], 01/02/2023 07:18:40 01/02/20 23 01/02/2023 CBC (INCL UDES DIFF/ PLT) absolute neutrophils 5378 cells /uL 1500-7 800 normal Not Available [address], [address], 01/02/2023 07:18:40 01/02/20 23 01/02/2023 CBC (INCL UDES DIFF/ PLT) absolute lymphocytes 1993 cells /uL 850-39 00 normal Not Available [address] [place], [address], 01/02/2023 07:18:40 01/02/20 23 01/02/2023 CBC (INCL UDES DIFF/ PLT) absolute monocytes 640 cells /uL 200-95 0 normal Not Available [address] [place], [address], 01/02/2023 07:18:40 01/02/20 23 01/02/2023 CBC (INCL UDES DIFF/ PLT) absolute eosinophils 41 cells /uL 15-500 normal Not Available [address] [address] [place], [address], 01/02/2023 07:18:40 01/02/20 23 01/02/2023 CBC (INCL UDES DIFF/ PLT) absolute basophils 49 cells /uL 0-200 normal Not Available [address] [address] [place], [address], 01/02/2023 07:18:40 01/02/20 23 01/02/2023 CBC (INCL UDES DIFF/ PLT) neutrophils 66.4 % normal Not Available [address] [address] [place], [address], 01/02/2023 07:18:40 01/02/20 23 01/02/2023 CBC (INCL UDES DIFF/ PLT) lymphocytes 24.6 % normal Not Available [facility] [address] [place], [address], 01/02/2023 07:18:40 01/02/20 23 01/02/2023 CBC (INCL UDES DIFF/ PLT) monocytes 7.9 % normal Not Available [facility] [address] [place], [address], 01/02/2023 07:18:40 01/02/20 23 01/02/2023 CBC (INCL UDES DIFF/ PLT) eosinophils 0.5 % normal Not Available [facility] [id number] [place], [address], 01/02/2023 07:18:40 01/02/20 23 01/02/2023 CBC (INCL UDES DIFF/ PLT) basophils 0.6 % normal Not Available [facility] [address] [place], [address], 01/02/2023 07:18:40 11/12/19 21 11/11/2020 CT, abdom en + pelvi s, w/ contr ast No observ ation record ed. [id number] [facility] [address], [place], [address], 04/08/2022 17:45:03 04/23/19 22 04/21/2021 XR, foot, 3 or more view No observ ation record ed. [id number] [facility] [address], [place], [address], 04/08/2022 17:45:03 01/19/20 23 01/18/2023 colon oscop y scree madhav (PROC ) No observ ation record ed. [email or web address] [address], [place], [address], 02/12/2023 20:10:14 Result Notes None recorded. Problems Name Problem SNOMED Code Status Onset Date Resolution Date Notes Provider Name and Address Organization Details Recorded Time Acute sinusitis 29927609 Active 2021 Not [address] [facility] 3 17:43:55 Closed fracture proximal phalanx, toe 525774864 Active 2021 Not Available [facility] 3 17:43:55 Closed fracture proximal phalanx, toe 667479549 Active 2021 Not Available [facility] 3 17:43:55 Menstrual migraine 82592998 Active Not Available [facility] 3 17:43:55 Lower urinary tract symptoms 671844622 Active Not Available [facility] 3 17:43:55 Mild depression 957234245 Active SAHIL Mendiola null, [facility] 3 15:07:20 Vitamin D deficiency 84446230 Active Not Available [facility] 3 17:43:55 Migraine 25066304 Active Not Available [facility] 3 17:43:55 Anxiety 65230568 Active 2020 SAHIL Mendiola null, [facility] 3 15:07:18 Fatigue 52285525 Active Not Available [facility] 3 17:43:55 Upper respiratory infection 16871142 Active 2023 TAYLOR Bonner [address] [facility], [place], [address] , [facility] 4 16:18:11 Notes:COVID-19 pos 09/29/21 Problem Notes None recorded. Procedures Surgical History Date Name Laterality Status Provider Name and Address Organization Details Recorded Time extraction of wisdom tooth completed Not Available [facility] 04/08/2022 17:42:50 Imaging Results Imaging Date Name Status LastModified by Organiz ation Details LastModified Time 11/11/2020 CT, abdomen + pelvis, w/ contrast completed [id number] [facility] [address], [place], [address], 04/08/2022 17:45:03 04/21/2021 XR, foot, 3 or more view completed [id number] [facility] [address], [place], [address], 04/08/2022 17:45:03 01/18/2023 colonoscopy screening (PROC) completed [address], [place], [address], 02/12/2023 20:10:14 Procedure Notes None recorded. Medical Equipment None Reported. Allergies No known drug allergies Medications Name Sig Start Date Stop Date Status Note LastModified by Organization Details LastModified Time nifedipin e ER 30 mg tablet,ex tended release 24 hr TAKE 1 TABLET BY MOUTH ONCE DAILY 09/29 completed Not Available Not Available Not Available amoxicill in 500 mg capsule TAKE 1 CAPSULE BY MOUTH THREE TIMES DAILY UNTIL GONE 09/06 completed Not Available Not Available Not Available venlafaxi ne ER 37.5 mg capsule,e xtended release 24 hr Take 1 capsule every day by oral route in the morning. 05/03 completed Not Available Not Available Not Available Aviane 0.1 mg-20 mcg tablet TAKE 1 TABLET BY MOUTH ONCE DAILY active Not Available Not Available No t Available azithromy david 250 mg tablet 06/01 completed Not Available Not Available Not Available hydrocodo ne 5 mg-acetam inophen 325 mg tablet 09/06 completed Not Available Not Available Not Available prednison e 20 mg tablet TAKE 2 TABLETS BY MOUTH ONCE DAILY FOR 5 DAYS active Not Available Not Available No t Available propranol ol ER 60 mg capsule,2 4 hr,extend ed release Take 1 capsule every day by oral route. active she will taper down using immediat e release 20mg tabs Not Available Not Available Not Available Ferrex 150 mg iron capsule TAKE 1 CAPSULE BY MOUTH TWICE DAILY WITH MEALS active Not Available Not Available No t Available Anucort-H C 25 mg supposito ry INSERT 1 SUPPOSIT ORY RECTALLY 1-2 TIMES DAILY active Not Available Not Available No t Available sumatript an 50 mg tablet TAKE ONE TABLET BY MOUTH AT ONSET OF MIGRAINE , MAY REPEAT IN 2 HOURS active Not Available Not Available No t Available topiramat e 25 mg tablet one tab po qhs x 7d, then one tab po bid x 7d, then 2 tabs qhs and one tab AM x 7 d, then 2 tabs po bid active Not Available Not Available No t Available hydroxyzi ne HCl 50 mg tablet active Not Available Not Available No t Available acetamino phen 300 mg-codein e 30 mg tablet TAKE 1 TABLET BY MOUTH EVERY 4 TO 6 HOURS NEEDED FOR PAIN 09/07 completed Not Available Not Available Not Available sulfameth oxazole 800 mg-trimet hoprim 160 mg tablet Take 1 tablet every 12 hours by oral route. active Not Available Not Available No t Available tramadol 50 mg tablet active Not Available Not Available Not Available Microgest in FE 1/20 (28) 1 mg-20 mcg (21)/75 mg (7) tablet 1 tablet PO daily; patient would like to take continuo usly and may need early refills active Not Available Not Available No t Available amoxicill in 875 mg tablet TAKE 1 TABLET BY MOUTH TWICE DAILY UNTIL GONE 09/28 completed Not Available Not Available Not Available alprazola m 0.25 mg tablet TAKE 1 TABLET BY MOUTH TWICE DAILY NEEDED active Not Available Not Available No t Available famotidin e 20 mg tablet TAKE 1 TABLET BY MOUTH TWICE DAILY 10/02 completed Not Available Not Available Not Available Silvadene 1 % topical cream APPLY A 1/16 INCH (1.5 MM) THICK LAYER TO ENTIRE BURN AREA BY TOPICALR OUTE 2 TIMES PER DAY 05/03 completed Not Available Not Available Not Available cephalexi n 500 mg capsule TAKE 1 CAPSULE BY MOUTH TWICE DAILY 09/28 completed Not Available Not Available Not Available sertralin e 25 mg tablet Take 1 tablet every day by oral route in the evening. active Not Available Not Available No t Available hydroxyzi ne HCl 25 mg tablet TAKE 1 2 TO 1 (ONE HALF TO ONE) TABLET BY MOUTH EVERY DAY AT BEDTIME NEEDED active Not Available Not Available No t Available codeine 10 mg-guaife nesin 100 mg/5 mL oral liquid active Not Available Not Available Not Available mupirocin 2 % topical ointment APPLY OINTMENT TOPICALL Y TO AFFECTED AREA ONCE DAILY FOR 5 DAYS active Not Available Not Available No t Available ergocalci ferol (vitamin D2) 1,250 mcg (50,000 unit) capsule TAKE 1 CAPSULE BY MOUTH ONCE A WEEK active Not Available Not Available No t Available ibuprofen 600 mg tablet TAKE 1 TABLET BY MOUTH EVERY 6 HOURS NEEDED FOR CRAMPS active Not Available Not Available No t Available methylpre dnisolone 4 mg tablets in a dose pack TAKE BY MOUTH DIRECTED ON INSIDE OF PACKAGE active Not Available Not Available No t Available propranol ol 20 mg tablet one tab po bid x 7 days, then 1 tab po daily x 7 days, then half tab po daily x 7 days, then d/c. active Not Available Not Available No t Available cefdinir 300 mg capsule TAKE 1 CAPSULE BY MOUTH EVERY 12 HOURS FOR 7 DAYS active Not Available Not Available No t Available fluticaso ne propionat e 50 mcg/actua tion nasal spray,tessa pension 06/01 completed Not Available Not Available Not Available sertralin e 50 mg tablet TAKE 1 TABLET BY MOUTH ONCE DAILY active Not Available Not Available No t Available medroxypr ogesteron e 150 mg/mL intramusc ular suspensio n Inject 1 mL every 3 months by intramus cular route. 12/08 completed Not Available Not Available Not Available amoxicill in 875 mg-potass ium clavulana te 125 mg tablet TAKE 1 TABLET BY MOUTH EVERY 12 HOURS FOR 10 DAYS active Not Available Not Available No t Available escitalop go 10 mg tablet Take 1 tablet every day by oral route. 02/11 completed Not Available Not Available Not Available nitrofura ntoin monohydra te/macroc rystals 100 mg capsule 09/28 completed Not Available Not Available Not Available Boostrix Tdap 2.5 Lf unit-8 mcg-5 Lf/0.5 mL intramusc ular syringe active Not Available Not Available Not Available Adacel (Tdap Adolesn/A dult)(PF) 2 Lf-(2.5-5 -3-5)-5 Lf/0.5 mL IM syringe PHARMACI ST ADMINIST ERED IMMUNIZA TION ADMINIST ERED AT TIME OF DISPENSI NG 09/06 completed Not Available Not Available Not Available butalbita l-acetami nophen-ca ffeine 50 mg-300 mg-40 mg capsule TAKE 1 CAPSULE BY MOUTH EVERY 6 TO 8 HOURS NEEDED FOR MIGRAINE active Not Available Not Available No t Available Lo Loestrin Fe 1 mg-10 mcg (24)/10 mcg (2) tablet Take 1 tablet every day by oral route. 12/08 completed Not Available Not Available Not Available Afluria 2860-0734 (PF) 45 mcg (15 mcg x 3)/0.5 mL IM syringe active Not Available Not Available Not Available Procto-Me d HC 2.5 % topical cream perineal applicato r APPLY A THIN LAYER OF CREAM TO AFFECTED AREA(S) 2-4 TIMES DAILY active Not Available Not Available No t Available Fluzone Quad 2015-(P F) 60 mcg(15 mcgx4)/0. 5 mL intramusc ular syringe active Not Available Not Available Not Available Emgality Pen 120 mg/mL subcutane ous pen injector INJECT SUBCUTAN EOUSLY ONCE MONTHLY as directed 03/22 completed Not Available Not Available Not Available Emgality 120 mg/mL subcutane ous syringe Inject 120 mg every month by subcutan eous route. 03/22 completed Not Available Not Available Not Available Flublok Quad (PF) 180 mcg (45 mcg x 4)/0.5 mL IM syringe PHARMACI ST ADMINIST ERED IMMUNIZA TION ADMINIST ERED AT TIME OF DISPENSI NG 09/06 completed Not Available Not Available Not Available Ubrelvy 50 mg tablet active Not Available Not Available Not Available Fluzone Quad (PF) 60 mcg (15 mcg x 4)/0.5 mL IM syringe active Not Available Not Available Not Available BinaxNOW COVID-19 Ag Self Test kit Use as Directed on the Package active Not Available Not Available No t Available Vitals Date Recorded Body mass index (BMI) Body height Oxygen saturation Oxygen saturation in Arterial blood by Pulse oximetry Heart rate Body temperature Body weight Systolic blood pressure Diastolic blood pressure Provider Name and Address Organization Details Last Updated DateTime 1 20.6 kg/m2 165.1 cm 98 % 98 % 86 /min 98 [degF] 34624.4 5 g 110 mm[Hg] 60 mm[Hg] Not Available [facility] 3 17:43:18 Date Recorded Body mass index (BMI) Body height Heart rate Body weight Systolic blood pressure Diastolic blood pressure Provider Name and Address Organization Details Last Updated DateTime 2 20 kg/m2 165.1 cm 85 /min 99219.0 8 g 136 mm[Hg] 104 mm[Hg] Not Available [facility] 3 17:43:18 Date Recorded Body height Heart rate Systolic blood pressure Diastolic blood pressure Provider Name and Address Organization Details Last Updated DateTime 04/22/2021 165.1 cm 83 /min 114 mm[Hg] 76.99 mm[Hg] Not Available [facility] 04/08/2022 17:43:18 Date Recorded Body weight Body mass index (BMI) Body height Body temperature Heart rate Oxygen saturation Oxygen saturation in Arterial blood by Pulse oximetry Systolic blood pressure Diastolic blood pressure Provider Name and Address Organization Details Last Updated DateTime 3 98090.4 9 g 24.3 kg/m2 165.1 cm 98.2 [degF] 105 /min 99 % 99 % 116 mm[Hg] 80 mm[Hg] Venita Lin RN [place] - [facility] 3 14:42:08 Social History Question Answer Notes LastModified by Organizat ion Details LastModified Time Tobacco Smoking Status Never Smoker Not Available [facility] 04/08/2022 17:42:43 Do You Have An Advance Directive? No [id number] Information not available 04/08/2022 What Is Your Level Of Alcohol Consumption? Occasional [id number] Information not available 04/08/2022 If You Are , What Was Your Level Of Alcohol Consumption Prior To ? None [id number].[id number] Information not available 04/08/2022 Do You Wear A Helmet When Biking? No [id number] 1971 Information not available 04/08/2022 What Is Your Level Of Caffeine Consumption? Moderate MIGRATION.[id number] Information not available 04/08/2022 In The 14 Days Before Symptom Onset, Have You Had Close Contact With A Laboratory-confirm ed COVID-19 While That Case Was Ill? No [id number].[id number] Information not available 04/08/2022 In The 14 Days Before Symptom Onset, Have You Had Close Contact With A Person Who Is Under Investigation For COVID-19 While That Person Was Ill? No [id number] Information not available 04/08/2022 Are You Currently Employed? No [email or web address] Information not available 09/28/2022 What Type Of Diet Are You Following? REGULAR [id number].[id number] Information not available 04/08/2022 What Is The Highest Grade Or Level Of School You Have Completed Or The Highest Degree You Have Received? [id number] MIGRATION.[id number] 0205 Information not available 04/08/2022 What Is Your Occupation? Student MIGRATION.[id number] 0401 Information not available 04/08/2022 Have There Been Any Changes To Your Family Or Social Situation? No [email or web address] Information no t available 09/28/2022 Do You Use Insect Repellent Routinely? Yes [id number].[id number] Information not available 04/08/2022 Do You Have A Medical Power Of Traffic Operator? No MIGRATION.[id number] 4686 Information not available 04/08/2022 What Was The Date Of Your Most Recent Tobacco Screening? 03/27/2021 [id number].[id number] 7836 Information not available 04/08/2022 Have You Ever Been Counseled For Unhealthy Alcohol Use? No MIGRATION.852883 [id number] Information not available 04/08/2022 What Is Your Relationship Status? Single MIGRATION.[id number] 3464 Information not available 04/08/2022 Do You Use Your Seat Belt Or Car Seat Routinely? Yes MIGRATION.[id number] 2417 Information not available 04/08/2022 Do You Have Smoke And Carbon Monoxide Detectors In Your Home? Yes MIGRATION.[id number] 2525 Information not available 04/08/2022 Do You Feel Stressed (tense, Restless, Nervous, Or Anxious, Or Unable To Sleep At Night)? [id number] MIGRATION.097031 2257 Information not available 04/08/2022 Do You Use Any Illicit Or Recreational Drugs? No MIGRATION.697652 0411 Information not available 04/08/2022 Do You Use Sunscreen Routinely? Yes MIGRATION.806752 9612 Information not available 04/08/2022 Has Tobacco Cessation Counseling Been Provided? No MIGRATION.970385 7375 Information not available 04/08/2022 Have You Recently Traveled Abroad? No MIGRATION.057831 8770 Information not available 04/08/2022 Do You Have Any Dietary Restrictions? No MIGRATION.125711 2666 Information not available 04/08/2022 Do You Or Have You Ever Used Any Other Forms Of Tobacco Or Nicotine? No MIGRATION.780546 8311 Information not available 04/08/2022 Sex: Unknown Functional Status Question Answer Note LastModified by Organizat ion Details LastModified Time What is your exercise level? Moderate [id number] Information not available 04/08/2022 Mental Status None recorded. Family History Relationship Description Onset Age of this Age Resolved Age Notes LastModified by Organization Details LastModified Time Father Hypertensive disorder [id number] Not available 04/08/2022 17:42:51 Mother Hypertensive disorder [id number] Not available 04/08/2022 17:42:51 Sister Migraine [id number] Not available 04/08/2022 17:42:51 Medical History Condition Response DEPRESSION (INCLUDING POST ) Y HEADACHES/MIGRAINES Y DIZZINESS Y ANXIETY DISORDER Y URINARY/BLADDER/KIDNEY PROBLEMS Y Gynecological History Statement/Question Response Menses Monthly N Date of Last Pap 07/10/2015 Abnormal Pap N Current Control Method BCPs Sexually Active? Y Obstetrics History GPAL:G 1 P 0 0 0 1 Type Value Living 1 Total 1 Immunizations Vaccine Type Date Status Note Provider Nam e and Address Organization Details Recorded Time tetanus toxoid, unspecified formulation 6 completed Not Available [facility] 04/08/2022 17:44:57 Influenza, split virus, quadrivalent, preservative 0 completed Not Available [facility] 04/08/2022 17:44:57 influenza, unspecified formulation 6 completed Not Available [facility] 04/08/2022 17:44:57 Tdap 6 completed Not Available [facility] 04/08/2022 17:44:57 influenza, unspecified formulation 5 completed Not Available [facility] 04/08/2022 17:44:57 TST-PPD intradermal 4 completed Not Available [facility] 04/08/2022 17:44:57 Past Encounters Encounter ID Performer Location Encounter Start Date Encounter Closed Date Diagnosis/Indication Diagnosis SNOMED-CT Code Diagnosis ICD10 Code Diagnosis Note [id number] [facility] [address] [place] [address] 10/02/2020 00:00:00 10/04/2020 12:02:58 [id number] [facility] [address], [facility] [address] [place] [address] 03/27/2021 00:00:00 03/27/2021 12:38:17 [id number] [facility] [address], [address] [place] [address] 04/22/2021 00:00:00 04/22/2021 10:16:39 [id number] TAYLOR Bonner [facility] [address] [place] [address] 09/29/2022 14:35:10 09/29/2022 15:15:03 Adult health examination 396627332 Z00.01 well exam completed Migraine 42733222 G43.90 9 refill on sumatripta n and ubrelvy state 2837801 1 Z39.2 doing well post . no current depression symptoms. Anxiety 77991058 F41.9 stable on sertraline 50mg daily . Vitamin D deficiency 347 23895 E55.9 on high dose supplement due for lab Cholesterol screening 27 5914179 Z13.220 fasting lipids ordered Long-term drug therapy 523814599 Z79.899 CBC, CMP and TFTs due Health Concerns Section Related Observation LastModified by Organization Detai ls LastModified Time None Recorded Concern Status LastModified by Organization Details LastModified Time None Recorded Advance Directives Directive N: Payers Encounter Date Sequence Insurance Name Policy Number Policy Bolaños Covered Member ID Bolaños Member ID Guarantor Name 09/29/2022 1 [facility] [id number] Karlene Beltran [id number] Karlene Beltran Notes Date Note Type Note Provider Name and Address Organization Details Recorded Time 10/02/2020 text/html Anxiety/Depressi o nReported bypatient.Severit y:denies suicidal ideations; able to maintain relationships; does not interfere with activities of daily living Context:no major life stressors Associated Symptoms:denies homicidal ideations; no significant weight gain; no significant weight loss; no visual/auditory hallucinations; no delusions; no shortness of breath; no crying spells; no panic; no isolation; sleeping well; appetite good; energy good; no apathy; maintaining functionality;anx ietyNotes:Has been having more anxiety sx Not Available [facility] 10/04/2020 12:02:58 09/29/2022 text/html Anxiety/Depressi o nReported bypatient.Severit y:denies suicidal ideations; able to maintain relationships; does not interfere with activities of daily living Context:no major life stressors Associated Symptoms:denies homicidal ideations; no significant weight gain; no significant weight loss; no visual/auditory hallucinations; no delusions; no shortness of breath wellness TAYLOR Bonner [address] [address], [place], [address], [employer] 10/08/2022 08:50:11 OBGyn Episode No OBEpisode recorded.
--- OUTSIDE RECORDS SUMMARY | 2024-04-23 12:15 | XMS_ITS | Data Portability ---
Author Organization [facility] Chantal [facility] Address [address] [place] [address] Care Team Providers Care Jewelry Facer Name Role Phone ELE DICKINSON Primary Care Provider Unavailab le Assessment No assessment recorded. Plan of Treatment Reminders Order Date Submit Date Provider Last Modified By Organization Details Last Modified Time Details Appointments None recorded. Lab TSH + free T4, serum 2023 024 [email or web address] [facility], [address], [place], [address], 4 09:30:19 CMP, serum or plasma 2023 024 [email or web address], [address], [place], [address], 4 09:28:20 CBC w/ auto diff 2023 024 [email or web address], [address], [place], [address], 4 09:28:28 vitamin B12 + folate, serum or blood 2023 024 [email or web address], [address], [place], [address], 4 09:28:24 lipid panel, serum 2023 024 [email or web address], [address], [place], [address], 4 09:28:15 vitamin D, 25-hydroxy , total, serum 2023 [employer] [facility], [address], [place], [address], 4 09:28:05 HbA1c (hemoglobi n A1c), blood 2023 024 [facility], [address], [place], [address], 4 09:28:10 Referral otolaryngo logist referral 2023 024 YARA Hale, [address] [facility], [place], [address], 13:45:14 Procedures None recorded. Surgeries None recorded. Imaging None recorded. Medication Orders azithromyc in 250 mg tablet 2023 024 [facility], [address] [place] [address], [address], 4 14:23:10 cefdinir 300 mg capsule 2023 024 [facility], [address] [place], [address], 4 13:08:03 prednisone 50 mg tablet 2023 024 [facility], [address] [place], [address], 4 13:08:01 sertraline 50 mg tablet 2023 024 [facility], [facility] [place], [address], 4 13:13:56 Patient TargetsNo targets recorded. Patient InstructionsNo instructions recorded. Reason for Referral Engineer Byproduct Referral fo r Dysfunction of left eustachian tube Referring Physician: Ele Dickinson, Internal Medicine, Encounter Date: 07/20/2023 Results Created Date Observation Date Name Description Value Unit Range Abnormal Flag Note LastModifiedBy Organization Detail LastModifiedTime Result Notes None recorded. Problems Name Problem SNOMED Code Status Onset Date Resolution Date Notes Provider Name and Address Organization Details Recorded Time Generalized anxiety disorder 89449492 Active 2023 TAYLOR Bonner Attn: Nayely matilda,[address] [facility], [place], [address], [facility] 4 13:10:40 Migraine 68414849 Active 2023 TAYLOR Bonner Attn: Nayely matilda,[address] [facility], [place], [address], [facility] 4 13:10:41 Long-term drug therapy Active 2023 TAYLOR Bonner Attn: Nayely grey,[address] [facility], [place], [address], [place] - [facility] 4 13:10:44 Depressive disorder 83188389 Active 2023 TAYLOR Bonner Attn: Nayely matilda,[address] [facility], [place], [address], [place] - [facility] 4 23:51:05 Vitamin D deficiency 16551000 Active 2023 TAYLOR Bonner Attn: Nayely grey,[address] [place], [address], [place] - [facility] 4 23:51:58 Dysfunction of left eustachian tube 7372356972909 106 Active 2023 TAYLOR Bonner Attn: Nayely matilda,[address] [facility], [place], [address], [place] - [facility] 4 00:40:01 Notes:Some problems listed i n Document: #[id number] could not be added to this patient's chart. Please review this document and add these problems to the patient's chart manually as needed. Problem Notes None recorded. Medical Equipment None Reported. Allergies No known drug allergies Medications Name Sig Start Date Stop Date Status Note LastModified by Organization Details LastModified Time nifedipine ER 30 mg tablet,exte nded release 24 hr TAKE 1 TABLET BY MOUTH ONCE DAILY 07/12 completed Not Available Not Available Not Available Aviane 0.1 mg-20 mcg tablet TAKE 1 TABLET BY MOUTH ONCE DAILY active Not Available Not Available No t Available azithromyci n 250 mg tablet TAKE 2 TABLETS BY MOUTH ON DAY 1, AND THEN TAKE 1 TABLET BY MOUTH ONCE A DAY ON DAY 2 THROUGH DAY 5 active Not Available Not Available No t Available prednisone 20 mg tablet TAKE 2 TABLETS BY MOUTH ONCE DAILY FOR 5 DAYS 05/23 completed Not Available Not Available Not Available Ferrex 150 mg iron capsule TAKE 1 CAPSULE BY MOUTH TWICE DAILY WITH MEALS 05/23 completed Not Available Not Available Not Available Anucort-HC 25 mg suppository INSERT 1 SUPPOSITO RY RECTALLY 1-2 TIMES DAILY 05/23 completed Not Available Not Available Not Available sumatriptan 50 mg tablet TAKE ONE TABLET BY MOUTH AT ONSET OF MIGRAINE, MAY REPEAT IN 2 HOURS active Not Available Not Available No t Available amoxicillin 875 mg tablet TAKE 1 TABLET BY MOUTH EVERY 12 HOURS active Not Available Not Available No t Available ciprofloxac in 0.3 % eye drops INSTILL 1 TO 2 DROPS INTO AFFECTED EYE(S) EVERY 2 HOURS WHILE AWAKE FOR 2 DAYS AND THEN 1 TO 2 EVERY 4 HOURS WHILE AWAKE FOR THE NEXT 5 DAYS 07/12 completed Not Available Not Available Not Available prednisone 50 mg tablet TAKE 1 TABLET BY MOUTH ONCE DAILY FOR 5 DAYS active Not Available Not Available No t Available ibuprofen 600 mg tablet TAKE 1 TABLET BY MOUTH EVERY 6 HOURS NEEDED FOR CRAMPS 05/23 completed Not Available Not Available Not Available methylpredn isolone 4 mg tablets in a dose pack TAKE BY MOUTH DIRECTED ON INSIDE OF PACKAGE 05/23 completed Not Available Not Available Not Available cefdinir 300 mg capsule TAKE 1 CAPSULE BY MOUTH EVERY 12 HOURS active Not Available Not Available No t Available sertraline 50 mg tablet TAKE 1 & 1/2 (ONE & ONE-HALF) TABLETS BY MOUTH ONCE DAILY active Not Available Not Available No t Available amoxicillin 875 mg-erin m clavulanate 125 mg tablet TAKE 1 TABLET BY MOUTH EVERY 12 HOURS FOR 10 DAYS 05/23 completed Not Available Not Available Not Available ciprofloxac in 0.3 %-dexametha sone 0.1 % ear drops,suspe nsion INSTILL 5 DROPS INTO LEFT EAR THREE TIMES DAILY FOR 7 DAYS TRAGAL PUMP AFTER APPLYING active Not Available Not Available No t Available Procto-Med HC 2.5 % topical cream perineal applicator APPLY A THIN LAYER OF CREAM TO AFFECTED AREA(S) 2-4 TIMES DAILY 05/23 completed Not Available Not Available Not Available Ubrelvy 50 mg tablet TAKE ONE TABLET BY MOUTH AT ONSET OF MIGRAINE, MAY REPEAT IN 1 HOUR IF NEEDED. MAX 200 MG IN 24 HOURS. active Not Available Not Available No t Available BinaxNOW COVID-19 Ag Self Test kit Use as Directed on the Package 05/23 completed Not Available Not Available Not Available Vitals Date Recorded Body height Body mass index (BMI) Body weight Respiratory rate Oxygen saturation Oxygen saturation in Arterial blood by Pulse oximetry Heart rate Systolic blood pressure Diastolic blood pressure Provider Name and Address Organization Details Last Updated DateTime 4 165.1 cm 20.5 kg/m2 15941.2 2 g 20 /min 99 % 99 % 86 /min 118 mm[Hg] 22 mm[Hg] Shilo Maria MA [facility] 12:37:15 Date Recorded Systolic blood pressure Diastolic blood pressure Provider Name and Address Organization Details Last Updated DateTime 07/13/2023 110 mm[Hg] 80 mm[Hg] TAYLOR Bonner Attn: Accounting,[address] [place], [address], [facility] 07/13/2023 13:06:59 Date Recorded Body height Body mass index (BMI) Body weight Respiratory rate Oxygen saturation Oxygen saturation in Arterial blood by Pulse oximetry Heart rate Systolic blood pressure Diastolic blood pressure Provider Name and Address Organization Details Last Updated DateTime 4 165.1 cm 20.6 kg/m2 69857.0 9 g 20 /min 98 % 98 % 97 /min 118 mm[Hg] 72 mm[Hg] Shilo Maria MA [facility] 14:06:20 Social History Question Answer Notes LastModified by Organizat ion Details LastModified Time Tobacco Smoking Status Never Smoker Shilo Maria MA [facility], [place] - [facility] 07/13/2023 12:34:47 What Is Your Level Of Alcohol Consumption? Moderate Information not available 07/13/2023 Are You Blind Or Do You Have Difficulty Seeing? No Glasses Information not available 07/13/2023 What Is Your Level Of Caffeine Consumption? Moderate Coffee Information not available 07/13/2023 In The 14 Days Before Symptom Onset, Have You Had Close Contact With A Laboratory-confir med COVID-19 While That Case Was Ill? No Information not available 07/13/2023 In The 14 Days Before Symptom Onset, Have You Had Close Contact With A Person Who Is Under Investigation For COVID-19 While That Person Was Ill? No Information not available 07/13/2023 Have You Been To An Area Known To Be High Risk For COVID-19? No Information not available 07/13/2023 Are You Deaf Or Do You Have Serious Difficulty Hearing? No Information not available 07/13/2023 What Type Of Diet Are You Following? REGULAR Information not available 07/13/2023 Are There Any Guns Present In Your Home? No Information not available 07/13/2023 What Was The Date Of Your Most Recent Tobacco Screening? 07/13/2023 Information not available 07/13/2023 Do You Use Your Seat Belt Or Car Seat Routinely? Yes Information not available 07/13/2023 Do You Have Smoke And Carbon Monoxide Detectors In Your Home? Yes Information not available 07/13/2023 Do You Use Any Illicit Or Recreational Drugs? No Information not available 07/13/2023 Do You Use Sunscreen Routinely? Yes Information not available 07/13/2023 Has Tobacco Cessation Counseling Been Provided? Yes Information not available 07/13/2023 On What Date Was Tobacco Cessation Counseling Provided? 07/13/2023 Information not available 07/13/2023 Do You Or Have You Ever Used Any Other Forms Of Tobacco Or Nicotine? No Information not available 07/13/2023 Sex: Female Functional Status Question Answer Note LastModified by Organization D etails LastModified Time Are you able to care for yourself? Yes Information n ot available 07/13/2023 What is your exercise level? None Information not available 07/13/2023 Mental Status None recorded. Family History Relationship Description Onset Age of this Age Resolved Age Notes LastModified by Organization Details LastModified Time Mother Diabetes mellitus [email or web address] Not available 2023 15:06:08 Mother Disorder of thyroid gland tcarterma Not available 2023 15:06:15 Mother Heart disease tcarterma Not available 2023 15:06:29 Mother Hypertensive disorder tcarterma Not available 2023 15:06:42 Brother Diabetes mellitus tcarterma Not available 2023 15:06:08 Father Hypertensive disorder tcarterma Not available 2023 15:06:42 Father Migraine tcarterma Not availabl e 07/13/2023 15:06:55 Sister Migraine tcarterma Not availabl e 07/13/2023 15:06:55 Medical History Condition Response Coronary Artery Disease N Other N Atrial Fibrillation N High Blood Pressure N Thyroid Problems N Kidney or Bladder Problems N Depression N COPD N Blood Clots N GI Problems N Skin Problems N Anemia N Heart Attack ([place]) N Diabetes N Anxiety Disorder Y Muscle, Joint, or Bone Problems N Seizures/Epilepsy N Acid Reflux (GERD) N Cancer N Stroke N Allergies N Asthma N High Cholesterol N Hepatitis N Liver Disease N Headaches Y Osteoporosis N Heart Failure N Gynecological History Statement/Question Response Menses Monthly N Current Control Method BCPs Flow Moderate Date of LMP 07/08/2023 Obstetrics History GPAL:G 1 P 1 0 0 1 Type Value Full Term 1 Induced 0 Spontaneous 0 Premature 0 Living 1 Total 1 Past Encounters Encounter ID Performer Location Encounter Start Date Encounter Closed Date Diagnosis/Indication Diagnosis SNOMED-CT Code Diagnosis ICD10 Code Diagnosis Note [id number] [facility] [place] [address] [place] [address] 07/13/2023 12:12:30 08/09/2023 15:02:29 Adult health examination 946272138 Z00.01 annual wellness completed Acute left otitis media 449559984 H66.92 start cefdinir 300mg bid course plus prednisone 50mg daily x 5 days. Diabetes m ellitus screening 960942475 Z13.1 a1c screening due Cholesterol screening 27 2102370 Z13.220 fasting lipids due Thyroid di sorder screening 325811459 Z13.29 thyroid screening due Long-term drug therapy 944416730 Z79.899 cmp, cbc and b12, folate labs are due Migraine 53249828 G43.90 9 ubrelvy works great. still having about 8-10 migraines per month. no severe ones. Generalize d anxiety disorder 76827771 F41.1 stable at this time on sertraline . Depressive disorder 3548 9007 F32.A increase to sertraline 75mg daily. Vitamin D deficiency 347 69007 E55.9 on vit D supplement . pt requests updated lab [id number] TAYLOR Bonner [facility] [place] [address] [place] [address] 07/20/2023 13:59:06 07/20/2023 14:26:19 Dysfunction of left eustachian tube 0397831055 667311 H69.92 onset 3 weeks but hearing has been very impaired since 2 weeks ago. January she has another similar situation in left ear that required abx for infection. Cefdinir and steroid did not help last week. Start 3 days of Afrin nasal spray. refer to ENT. Decreased hearing 856913 001 H91.92 left ear constantly muffled and ringing. Finding of fluid behind tympanic membrane 791177900 H73.899 Rx for zpack therapy to cover for atypical causes of residual bacteria Health Concerns Section Related Observation LastModified by Organization Detai ls LastModified Time None Recorded Concern Status LastModified by Organization Details LastModified Time None Recorded Advance Directives Directive None Recorded Payers Encounter Date Sequence Insurance Name Policy Number Policy Bolaños Covered Member ID Bolaños Member ID Guarantor Name 07/13/2023 1 [facility] [id number] Karlene Beltran [id number] Karlene Beltran 07/20/2023 1 [facility] [id number] Karlene Beltran [id number] Karlene Coppersmith Notes Date Note Type Note Provider Name and Address Organization Details Recorded Time 4 text/htm l Anxiety/DepressionReported bypatient.Notes:anxiety is fairly well controlled but depression symptoms have increased lately. interested in dose adjustment on medication.EaracheReported bypatient.Location:left Quality:aching; dull Severity:continuous Duration:frequent; symptoms lasting over 2 weeks Timing:worse Context:no recent swimming/water in ear; no recent air travel;sick contact Modifying Factors:hurts to lie on, or pull on ear Associated Symptoms:hearing loss;discharge from the ears;nose/sinus problemsHeadacheReported bypatient.Notes:hx of migraines . stable. on triptan therapy. has ulbrelvy also available. TAYLOR Bonner Attn: Accounting,[address] [facility], [place], [address], [facility] 08/07/2023 23:52:18 4 text/htm l EaracheReported bypatient.Location:left Quality:aching; dull Severity:continuous Duration:frequent; symptoms lasting over 2 weeks Timing:worse Context:no recent swimming/water in ear; no recent air travel;sick contact Modifying Factors:hurts to lie on, or pull on ear Associated Symptoms:hearing loss;discharge from the ears;nose/sinus problems TAYLOR Bonner Attn: Accounting,[address] [facility], [place], [address], [facility] 08/09/2023 00:40:14 OBGyn Episode No OBEpisode recorded.
--- OUTSIDE RECORDS SUMMARY | 2024-04-23 12:16 | XMS_ITS ---
Care Plan - [facility] Created on: April 23, 2024 JE MONTERO : 1990 Sex: Female Author Organization [facility] Address [address] [place] [address] Phone Care Team Providers Care Muck Farmer Name Role Phone CHERYL MONTOYA, AARON VAZQUEZ, ELE Primary Care Provider [phone]
--- OUTSIDE RECORDS SUMMARY | 2024-04-23 12:16 | XMS_ITS | Clinical Summary ---
Author Organization [facility] Address [address] [place] [address] Phone Care Team Providers Care Cnc Supervisor Name Role Phone CHERYL MONTOYA, AARON VAZQUEZ, ELE Primary Care Provider [phone] Reason for Visit and Chief Complaint WALK-IN CLINIC SICK VISIT Plan of Treatment - Goals, options, limitations and risks of therapy - Last Documented On 06/13/2019 7:37PM ; [facility] - Return to the clinic if condition worsens or new symptoms arise - Last Documented On 06/13/2019 7:37PM ; [facility] - Patient will call for appointment as needed - Last Documented On 06/13/2019 7:37PM ; [facility] *unable to run UA due to AZO -- will culture and treat empirically - Last Documented On 06/13/2019 7:37PM ; [facility] Assessments Includes: Assessments from this encounter Findings - Urinary tract infection [N39.0 - Urinary tract infection, site not specified] - Last Documented On 06/13/2019 7:37PM ; [facility] - Dysuria [R30.0 - Dysuria] - Last Documented On 06/13/2019 7:37PM ; [facility] Medical Equipment - Implanted Devices Includes: Current Devices No Medical Equipment Recorded Medications Includes: Medications discussed during this encounter and other current Medications New / Renewed during this visit MAURICE LARA on 06/13/2019 Macrobid 100 MG Oral Capsule Provider: MAURICE LARA 7 day supply: 14 capsule, 0 refills Diagnosis: Urinary tract infection, site not specified One tablet twice a day Pharmacy: [address], [phone] - Last Documented On 0 9:39PM By Maurice LARA ; [facility] Current Medications (continue as prescribed) AZO Cranberry Urinary Tract 250-60 MG Oral Capsule 06/2019 Provider: Diagnosis: PRN-UTI Last Documented On 06/13/2019 7:26PM By ETIENNE BAXTER ; [facility] Medications Administered Includes: Administered Medications from this encounter No Administered Medications Recorded Vital Signs Includes: Vital Signs from this encounter Vital Name 06/13/2019 07:26P Blood Pressure Sitting L 104/72 BP Cuff Size Regular Pulse Rate-Sitting (bpm) 113 Pulse Rhythm Regular Temp-Oral (F) 98.4 Height (in) 65 Weight (lb) 120.2 Body Mass Index (kg/m2) 20.0 Body Surface Area (m2) 1.6 Oxygen Saturation (%) 98 Last Documented: On 06/13/2019 7:28PM ; [facility] Results Includes: Results discussed during this encounter No Results Recorded For Specified Dates History of Present Illness Includes: History of Present Illness from this encounter GAVIOTA MONTERO is a 28 year old female. - Medication list reviewed - Allergy list reviewed - Medication reconciliation performed - No fever - No chills - No nausea - No vomiting - No abdominal pain - Cloudy urine - Urinary frequency was increased - Feelings of urinary urgency - Dysuria - No burning sensation during urination - No pain in the flank UTI symptoms started today at work. Bladder pressure, urgency and burning with urination. She took an AZO at work today. Social History No Social History Recorded - Smoking Status Unknown Procedures and Surgical History Includes: Procedures from this encounter Procedures Code Diagnosis Performing Provider Service L ocation Service Date Clinical summary provided to patient Last Documented On 0 7:32PM ; [facility] Medical History Includes: Medical History addressed during this encounter No Medical History Recorded Family History Includes: Family History addressed during this encounter No Family History Recorded Review of Systems Includes: Review of Systems from this encounter Systemic: No fever. Head: No head symptoms. Otolaryngeal: No otolaryngeal symptoms. Cardiovascular: No cardiovascular symptoms. Pulmonary: No pulmonary symptoms. Gastrointestinal: No gastrointestinal symptoms, no vomiting, no abdominal pain, and no diarrhea. Genitourinary: Dysuria. Mental Status Includes: Mental Status from this encounter Description Oriented to time, place, and person Functional Status Includes: Functional Status from this encounter No Functional Status Recorded Physical Exam Includes: Physical Exam from this encounter Allergies Includes: Active Allergies No Known Allergies Encounters Encounter Provider Location Date Check-In Time Check-Out Time Diagnosis WALK-IN CLINIC SICK VISIT MAURICE MARTINEZP-C [facility] 06/13/19 7:15PM 7:34PM Urinary Tract Infection,Dys uria Insurance Includes: Active Insurance Policies Plan Name Member ID Group # Subscriber Relationship Effect clayton Dates 1 - [facility] [id number] GRANT MONTERO S Clinical Notes Includes: Clinical Notes from this encounter No Clinical Notes Recorded
--- OUTSIDE RECORDS SUMMARY | 2024-04-23 12:16 | XMS_ITS | Data Portability ---
Author Organization [facility] Address [address] [place] [address] Assessment Encounter Date Assessment Date Assessment LastModified by Organization Details LastModified Time 10/04/2023 10/04/2023 Annual gynecological exam performed. Patient will come back in a year unless there are new symptoms. [email or web address] Not available 10/04/2023 10:13:43 Plan of Treatment Reminders Order Date Submit Date Provider Last Modified By Organization Details Last Modified Time Details Appointments None recorded. Lab None recorded. Referral None recorded. Procedures None recorded. Surgeries None recorded. Imaging US, obstetric, 1st trimester 2024 025 [email or web address] [facility], [address], [address], [place], [address], 22:06:14 Medication Orders Cytotec 200 mcg tablet 2024 025 [facility] [place], [address], 5 17:06:10 metoclopram mary kate 10 mg tablet 2024 025 [facility] [address] [place], [address], 5 17:33:37 Aviane 0.1 mg-20 mcg tablet 2023 024 [facility] [address] [place], [address], 4 22:22:59 Patient TargetsNo targets recorded. Patient InstructionsNo instructions recorded. Reason for Referral None Reported. Results Created Date Observation Date Name Description Value Unit Range Abnormal Flag Note LastModifiedBy Organization Detail LastModifiedTime 03/24/1903/24/2024 US, obste tric, 1st trime ster No observ ation record ed. [email or web address] [address] [address], [place], [address], 03/24/2024 22:58:43 04/19/19 25 04/18/2024 US, obste tric, 1st trime ster No observ ation record ed. [email or web address] [facility] [address], [place], [address], 04/18/2024 17:59:11 04/19/19 25 04/18/2024 US, obste tric, 1st trime ster No observ ation record ed. [email or web address] [address] [address], [place], [address], 04/19/2024 09:45:35 Result Notes None recorded. Problems Name Problem SNOMED Code Status Onset Date Resolution Date Notes Provider Name and Address Organization Details Recorded Time Subchori onic hematoma 603634261 Active 2021 Nataliia Hector MD [address], [place], [address], [facility] 2 09:19:15 Anxiety in pregnanc y 2916604114 9109 Active 2021 zoloft to start 12/17 Vaughn Golden [facility], [facility] 3 15:50:31 Migraine 91661126 Active 2021 fioricet sparingl y Vaughn Golden [facility], [facility] 3 15:50:31 Pregnanc y 65280996 Completed 202107/24/2022 Vaughn Golden null, [facility] 3 15:50:35 Migraine 36131343 Completed 2021 fioricet sparingl y Vaughn Golden null, [facility] 3 15:50:31 Anxiety in pregnanc y 2120042621 9109 Completed 2021 zoloft to start 12/17 Vaughn Hollandle null, [facility] 3 15:50:31 Disorder of placenta 000313227 Completed Bilobed placenta - growth q4wk Vaughn Hollandle null, [facility] 3 15:50:31 Disorder of placenta 143362846 Active Bilobed placenta - growth q4wk Vaughn Golden null, [facility] 3 15:50:31 Problem Notes None recorded. Procedures Surgical History Date Name Laterality Status Provider Name and Address Organization Details Recorded Time 2 Date of Last Pap Smear completed [facility] 02/10/2022 09:30:19 2 extraction of wisdom tooth completed [facility] 02/10/2022 09:33:23 Imaging Results Imaging Date Name Status LastModified by Organiz ation Details LastModified Time 03/24/2024 US, obstetric, 1st trimester completed [email or web address] [address], [place], [address], 03/24/2024 22:58:43 04/18/2024 US, obstetric, 1st trimester completed [email or web address] [facility] [address], [place], [address], 04/18/2024 17:59:11 04/18/2024 US, obstetric, 1st trimester completed [email or web address] [address], [place], [address], 04/19/2024 09:45:35 Procedure Notes None recorded. Medical Equipment None Reported. Allergies No known drug allergies Medications Name Sig Start Date Stop Date Status Note LastModified by Organization Details LastModified Time [email or web address] covid-19 ag card home test kit 05/12 completed Not Available Not Available Not Available Prescriptio n - Prior Authorizati on Request 11/30 completed Not Available Not Available Not Available nifedipine ER 30 mg tablet,exte nded release 24 hr TAKE 1 TABLET BY MOUTH ONCE DAILY 09/28 completed Not Available Not Available Not Available Aviane 0.1 mg-20 mcg tablet TAKE 1 TABLET BY MOUTH ONCE DAILY active Not Available Not Available No t Available azithromyci n 250 mg tablet TAKE 2 TABLETS BY MOUTH ON DAY 1, AND THEN TAKE 1 TABLET BY MOUTH ONCE A DAY ON DAY 2 THROUGH DAY 5 10/03 completed Not Available Not Available Not Available Cytotec [address] 4 tablets vaginally one time. 2024 active Not Available Not Available Not Avai lable prednisone 20 mg tablet TAKE 2 TABLETS BY MOUTH ONCE DAILY FOR 5 DAYS 10/03 completed Not Available Not Available Not Available Ferrex 150 mg iron capsule TAKE 1 CAPSULE BY MOUTH TWICE DAILY WITH MEALS 09/28 completed Not Available Not Available Not Available Anucort-HC 25 mg suppository INSERT 1 SUPPOSITO RY RECTALLY 1-2 TIMES DAILY 09/28 completed Not Available Not Available Not Available sumatriptan 50 mg tablet TAKE ONE TABLET BY MOUTH AT ONSET OF MIGRAINE, MAY REPEAT IN 2 HOURS active Not Available Not Available No t Available hydroxyzine HCl 50 mg tablet Take 1 tablet every 8 hours by oral route as needed. 09/28 completed Not Available Not Available Not Available amoxicillin 875 mg tablet TAKE 1 TABLET BY MOUTH EVERY 12 HOURS 03/24 completed Not Available Not Available Not Available alprazolam 0.25 mg tablet TAKE 1 TABLET BY MOUTH TWICE DAILY NEEDED 01/14 completed Not Available Not Available Not Available famotidine 20 mg tablet 12/04 completed Not Available Not Available Not Available ciprofloxac in 0.3 % eye drops INSTILL 1 TO 2 DROPS INTO AFFECTED EYE(S) EVERY 2 HOURS WHILE AWAKE FOR 2 DAYS AND THEN 1 TO 2 EVERY 4 HOURS WHILE AWAKE FOR THE NEXT 5 DAYS 10/03 completed Not Available Not Available Not Available cephalexin 500 mg capsule TAKE 1 CAPSULE BY MOUTH TWICE DAILY 11/19 completed Not Available Not Available Not Available prednisone 50 mg tablet TAKE 1 TABLET BY MOUTH ONCE DAILY FOR 5 DAYS 10/03 completed Not Available Not Available Not Available sertraline 25 mg tablet 12/04 completed Not Available Not Available Not Available mupirocin 2 % topical ointment APPLY OINTMENT TOPICALLY TO AFFECTED AREA ONCE DAILY FOR 5 DAYS 11/19 completed Not Available Not Available Not Available ergocalcife rol (vitamin D2) 1,250 mcg (50,000 unit) capsule TAKE 1 CAPSULE BY MOUTH ONCE A WEEK 11/19 completed Not Available Not Available Not Available ibuprofen 600 mg tablet TAKE 1 TABLET BY MOUTH EVERY 6 HOURS NEEDED FOR CRAMPS 09/28 completed Not Available Not Available Not Available methylpredn isolone 4 mg tablets in a dose pack TAKE BY MOUTH DIRECTED ON INSIDE OF PACKAGE 10/03 completed Not Available Not Available Not Available cefdinir 300 mg capsule TAKE 1 CAPSULE BY MOUTH EVERY 12 HOURS active Not Available Not Available No t Available sertraline 50 mg tablet TAKE 1 & 1/2 (ONE & ONE-HALF) TABLETS BY MOUTH ONCE DAILY active Not Available Not Available No t Available metoclopram mary kate 10 mg tablet TAKE 1 TABLET BY MOUTH 4 TIMES DAILY active Not Available Not Available No t Available amoxicillin 875 mg-potassiu m clavulanate 125 mg tablet TAKE 1 TABLET BY MOUTH EVERY 12 HOURS FOR 10 DAYS 10/03 completed Not Available Not Available Not Available ciprofloxac in 0.3 %-dexametha sone 0.1 % ear drops,suspe nsion INSTILL 5 DROPS INTO LEFT EAR THREE TIMES DAILY FOR 7 DAYS TRAGAL PUMP AFTER APPLYING 10/03 completed Not Available Not Available Not Available nitrofurant oin monohydrate /macrocryst als 100 mg capsule Take 1 capsule every 12 hours by oral route. 04/07 completed Not Available Not Available Not Available sumatriptan 12/04 completed Not Available Not Available Not Available hydroxyzine HCl 01/14 completed Not Available Not Available Not Available Colace active Not Available Not Availa ble Not Available Vitamin D3 10/03 completed Not Available Not Available Not Available Daily 10/03 completed Not Available Not Available Not Available Fioricet 50 mg-300 mg-40 mg capsule Take 1 capsule every 6-8 hours by oral route. 09/28 completed Not Available Not Available Not Available Procto-Med HC 2.5 % topical cream perineal applicator APPLY A THIN LAYER OF CREAM TO AFFECTED AREA(S) 2-4 TIMES DAILY 09/28 completed Not Available Not Available Not Available Larissia 12/04 completed Not Available Not Available Not Available Emgality Pen 120 mg/mL subcutaneou s pen injector 12/04 completed Not Available Not Available Not Available Emgality 120 mg/mL subcutaneou s syringe Inject by subcutane ous route. 12/04 completed Not Available Not Available Not Available Ubrelvy 50 mg tablet TAKE ONE TABLET BY MOUTH AT ONSET OF MIGRAINE, MAY REPEAT IN 1 HOUR IF NEEDED. MAX 200 MG IN 24 HOURS. active Not Available Not Available No t Available BinaxNOW COVID-19 Ag Self Test kit Use as Directed on the Package 10/03 completed Not Available Not Available Not Available Vitals Date Recorded Body height Body mass index (BMI) Body weight Systolic blood pressure Diastolic blood pressure Provider Name and Address Organization Details Last Updated DateTime 10/04/2023 165.1 cm 20.8 kg/m2 84955.76 g 117 mm[Hg] 82 mm[Hg] Amelia Farnsworth [facility] 4 10:14:04 Date Recorded Body height Body mass index (BMI) Body weight Systolic blood pressure Diastolic blood pressure Provider Name and Address Organization Details Last Updated DateTime 03/24/2024 165.1 cm 21.1 kg/m2 26456.23 g 106 mm[Hg] 71 mm[Hg] Mayra Grimm [facility] 5 10:16:58 Date Recorded Body height Body mass index (BMI) Body weight Systolic blood pressure Diastolic blood pressure Provider Name and Address Organization Details Last Updated DateTime 04/18/2024 165.1 cm 21.1 kg/m2 66066.23 g 120 mm[Hg] 71 mm[Hg] Mayra Peraltaen [facility] 5 14:54:10 Social History Question Answer Notes LastModified by Organizat ion Details LastModified Time Tobacco Smoking Status Never Smoker Char Desai anish, [facility] 09/28/2022 10:35:02 Do You Have An Advance Directive? No Information n ot available 12/04/2020 What Is Your Level Of Alcohol Consumption? Occasional Information not available 12/04/2020 How Many Years Have You Consumed Alcohol? 8 [email or web address] Information not available 02/10/2022 Are You Blind Or Do You Have Difficulty Seeing? No Information n ot available 12/02/2020 What Is Your Level Of Caffeine Consumption? Moderate [email or web address] Information not available 01/14/2022 In The 14 Days Before Symptom Onset, Have You Had Close Contact With A Laboratory-confirm ed COVID-19 While That Case Was Ill? No Information n ot available 12/04/2020 In The 14 Days Before Symptom Onset, Have You Had Close Contact With A Person Who Is Under Investigation For COVID-19 While That Person Was Ill? No Information not available 12/04/2020 Have You Been To An Area Known To Be High Risk For COVID-19? No Information not available 12/04/2020 Are You Deaf Or Do You Have Serious Difficulty Hearing? No Information not available 12/02/2020 What Type Of Diet Are You Following? REGULAR Information n ot available 12/02/2020 What Is The Highest Grade Or Level Of School You Have Completed Or The Highest Degree You Have Received? 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 No Information not available 12/04/2020 Do You Use Protection During Sex? Usually Information not available 02/10/2022 Do You Use Your Seat Belt Or Car Seat Routinely? Yes Information not available 12/02/2020 Do You Have Smoke And Carbon Monoxide Detectors In Your Home? Yes Information not available 12/02/2020 How Much Tobacco Do You Smoke? No Information not available 12/04/2020 Do You Feel Stressed (tense, Restless, Nervous, Or Anxious, Or Unable To Sleep At Night)? [id number] [email or web address] Information not available 02/10/2022 Do You Use Any Illicit Or Recreational Drugs? No Information not available 12/02/2020 Do You Use Sunscreen Routinely? Yes Information not available 12/02/2020 Have You Used IV Drugs? No Information not available 12/04/2020 Sex: Unknown Functional Status Question Answer Note LastModified by Organizat ion Details LastModified Time Do you have difficulty walking or climbing stairs? No [email or web address] Information not available 09/28/2022 Are you able to walk? [email or web address] Information not available 12/02/2020 Are you able to care for yourself? Yes [email or web address] Information not available 09/28/2022 Do you have difficulty dressing or bathing? No [email or web address] Information not available 09/28/2022 What is your exercise level? Occasional Information not available 12/04/2020 Mental Status None recorded. Family History Relationship Description Onset Age of this Age Resolved Age Notes LastModified by Organization Details LastModified Time Mother Hypertensive disorder [email or web address] Not available 2022 12:24:17 Mother Disorder of thyroid gland [email or web address] Not available 2022 12:24:17 Mother Disorder of thyroid gland [email or web address] Not available 2023 10:07:55 Mother Disorder of thyroid gland [email or web address] Not available 2023 10:07:55 Mother Hypertensive disorder [email or web address] Not available 2023 10:07:56 Father Hypertensive disorder [email or web address] Not available 2022 12:24:17 Father Hypertensive disorder Not available 2023 10:07:56 Medical History Condition Response Allergies (Food, seasonal, environmental ) N Other N Breast Cancer N Drug/Latex Allergies/Reactions N Blood Transfusion N Dermatologic Disorders N Lung Disease N Defects or Inherited Disease N Breast Problem N Gestational Diabetes N Hematologic disorders N Anesthesia Complications N History of STI N Deep Vein Thrombosis N Polycystic ovary syndrome N Anxiety Disorder Y Autoimmune disease N Arthritis N Infertility N Polyps N Acid Reflux (GERD) N History of abnormal pap N Cancer N Stroke N Varicosities N Neurologic/Epilepsy N Endometriosis N High Cholesterol N Headaches Y Fibromyalgia N Kidney Disease N Heart Problems N Kidney or Bladder Problems N Thyroid Problems N GI Problems N Eating Disorder N Anemia N Art (IVF or FET) N Psychiatric Illness N Ovarian Cancer N Diabetes N Pulmonary (TB, Asthma) N Hepatitis/Liver Disease N No Past Medical History N Eczema N Urinary Tract Infection N Abuse/Domestic Violence N Asthma N Trauma/Violence N Depression/ depression Y Heart Disease N Pre-Eclampsia N Hypertension N Osteoporosis N Thrombophilias N Gynecological History Statement/Question Response Abnormal Pap N Flow Moderate Date of LMP 01/27/2024 On BCP's at Conception? N N Was last menstrual period normal Y STIs/STDs N HPV Vaccine N Duration of Flow (days) 7 Current Control Method BCPs Are cycles usually normal Y Frequency of Cycle (Q days) 7 Sexually Active? Y BCPs Age of first menstrual cycle 14 Date of Last Pap Smear 11/19/2021 Sexual Problems? N Desired Control Method N/A LMP Approximate N Obstetrics History GPAL:G 1 P 1 0 0 1 Type Value Full Term 1 Living 1 Total 1 Past Encounters Encounter ID Performer Location Encounter Start Date Encounter Closed Date Diagnosis/Indication Diagnosis SNOMED-CT Code Diagnosis ICD10 Code Diagnosis Note [id number] Mandy Barajas [facility] [address] [address] 12/01/2019 11:23:25 12/01/2019 14:32:06 Gynecologic examination 21397703 Z01.419 Take Calcium with Vitamin D 1200mg daily if not receiving in daily diet. It is strongly advised to have an annual flu shot and up can obtain at most pharmacies . If you have not had a TDap shot in the last 10 years you should obtain one as well. Discussed with patient & provided with informatio n regarding Gardisil vaccine to prevent the 4 strains for HPV that cause cervical cancer if under age 26. Encourage safe sexual practices, to use condoms and limit partners if not already in a monogamous relationsh ip. Do monthly self breast exams. Have mammogram yearly or every other year depending on family history. BRCA testing is now available for patients with strong genetic history of female cancer. If interested contact the office. Engage in daily exercise of low impact aerobic exercise 45-60 minutes 4-5 times weekly. Avoid tobacco and illicit drugs as well as using moderation with alcohol intake less than 1-2 8 oz beverages daily. This lifestyle behavior pattern will lead to less health conditions and longer life span. If BMI greater than 25 weight watchers or dietary consult advised. Patient received above instructio ns, and questions have been answered. If you have any questions please call or respond to this email. Patient was made aware of the patient portal and may obtain a paper copy of today's plan if desired. Happy on current OCP. [place] [id number] Mandy Barajas , [facility] [address],[facility] [place] [address] 12/04/2020 09:37:10 12/04/2020 16:09:10 Gynecologic examination 32423257 Z01.419 Take Calcium with Vitamin D 1200mg daily if not receiving in daily diet. It is strongly advised to have an annual flu shot and up can obtain at most pharmacies . If you have not had a TDap shot in the last 10 years you should obtain one as well. Discussed with patient & provided with informatio n regarding Gardisil vaccine to prevent the 4 strains for HPV that cause cervical cancer if under age 26. Encourage safe sexual practices, to use condoms and limit partners if not already in a monogamous relationsh ip. Do monthly self breast exams. Have mammogram yearly or every other year depending on family history. BRCA testing is now available for patients with strong genetic history of female cancer. If interested contact the office. Engage in daily exercise of low impact aerobic exercise 45-60 minutes 4-5 times weekly. Avoid tobacco and illicit drugs as well as using moderation with alcohol intake less than 1-2 8 oz beverages daily. This lifestyle behavior pattern will lead to less health conditions and longer life span. If BMI greater than 25 weight watchers or dietary consult advised. Patient received above instructio ns, and questions have been answered. If you have any questions please call or respond to this email. Patient was made aware of the patient portal and may obtain a paper copy of today's plan if desired. Happy on current OCP. RF s sent Pap q3-5yrs per asp unless otherwise indicated. Monogamous relationsh ipPNV if considerin g in the next year.On zoloft which we discussed is safe for use in & breast feeding.No data on it inhibiting at this current time. Declined need std screen Contracept ion care management 306854622 Z30.9 Happy on OCPRF sent Hemorrhoids 12539641 K64 .9 Ext hemorrhoid present not inflamed.R ec GI for possible internal hemorrhoid s & c/o stomach issues (PCP will send referral per pt). [id number] Rosanne Benavidez [facility] [address],[place] [address] 11/14/2021 09:50:03 11/14/2021 15:12:29 Threatened miscarriage 94689032 O20.0 [id number] Mariana Moss [facility] [address],[place] [address] 11/19/2021 09:56:08 11/19/2021 10:54:00 [id number] Ntaaliia Hector MD [facility] [address],[place] [address] 11/19/2021 09:56:32 11/25/2021 15:15:56 test positive 958360244 Z32.01 Venereal d isease screening 566690580 Z11.3 Subchorionic hematoma 60 7197605 O41.8X99 Anxiety in 429 2072273 9109 F41.9 Migraine 92915498 G43.90 9 [id number] Tiffany Macedo [facility] [address],[place] [address] 12/16/2021 13:51:12 12/16/2021 15:26:38 Subchorionic hematoma 138491557 O41.8X10 Z3A.10 [id number] Nataliia Hector MD [facility] [address],[place] [address] 12/16/2021 13:54:29 12/17/2021 10:49:41 Routine care 296473099 Z34.91 Vitamin D deficiency 347 37791 E55.9 Anxiety in 113 4162223 9109 F41.9 [id number] [facility] [address],[place] [address] 01/14/2022 10:37:29 01/14/2022 11:53:45 Routine care 968403280 Z34.92 [id number] Mariana Joy [facility] [address],[place] [address] 02/10/2022 10:00:07 02/10/2022 12:33:00 screening for malformation 418422681 Z36.3 [id number] Kathi Chavarria [facility] [address],[place] [address] 02/10/2022 10:00:45 02/11/2022 15:50:54 Routine care 226479033 Z34.92 [id number] Tiffany Macedo [facility] [address],[place] [address] 03/10/2022 11:00:44 03/10/2022 15:12:27 Placental abnormality 124526645 O43.102 O35.8XX0 Z3A.22 [id number] Nataliia Hector MD [facility] [address],[place] [address] 03/10/2022 11:01:39 03/12/2022 15:54:42 Routine care 663413765 Z34.91 Anxiety in 920 0922783 9109 F41.9 [id number] Tiffany Macedo [facility] [address],[place] [address] 04/07/2022 10:28:06 04/07/2022 11:20:16 AND/OR placental disorder affecting management of mother 42664347 O36.92X0 Z3A.26 [id number] Nataliia Hector MD [facility] [address],[place] [address] 04/07/2022 10:28:41 04/07/2022 13:55:05 Routine care 643546533 Z34.91 Disorder of placenta 125 775112 O43.192 [id number] Nataliia Hector MD [facility] [address],[place] [address] 04/29/2022 09:31:04 04/30/2022 15:03:24 Disorder of placenta 710244150 O43.192 Routine an tenatal care 113977816 Z34.91 [id number] Mariana Joy [facility] [address],[place] [address] 05/12/2022 09:29:33 05/12/2022 10:13:03 Placental condition affecting management of mother 167656273 O43.103 Z3A.31 [id number] Nataliia Hector MD [facility] [address],[place] [address] 05/12/2022 09:31:06 05/12/2022 10:33:03 Routine care 824586236 Z34.91 Disorder of placenta 125 029660 O43.192 Anxiety in 191 5871201 9109 F41.9 [id number] Nataliia Hector MD [facility] [address],[place] [address] 05/26/2022 09:58:15 05/26/2022 10:25:21 Routine care 881506487 Z34.91 [id number] Tiffany Macedo [facility] [address],[place] [address] 06/09/2022 09:34:14 06/09/2022 10:12:39 Placental condition affecting management of mother 126729974 O43.193 Z3A.35 [id number] [facility] [address],[place] [address] 06/09/2022 09:34:58 06/09/2022 10:32:58 Routine care 803243633 Z34.92 [id number] Eugenio Knowles MD [facility] [address] [place] [address] 06/18/2022 11:20:46 06/18/2022 13:13:45 -induced hypertension 80658511 O13.9 [id number] Nataliia Hector MD [facility] [address] [place] [address] 07/01/2022 11:34:52 07/01/2022 12:21:38 Mild pre-eclampsia 20154397 O14.03 [id number] Nataliia Hector MD [facility] [address],[place] [address] 07/20/2022 11:47:51 07/20/2022 15:25:22 care 135391523 Z39.2 Past pregn pee history of pre-eclampsia 6697534492 33718 Z87.59 Initial pr escription of oral contraception 774958696 Z30.011 [id number] Nataliia Hector MD [facility] [address],[place] [address] 09/28/2022 10:34:14 10/05/2022 15:16:54 Gynecologic examination 06081168 Z01.419 Z11.51 Surveillan ce of oral contraception 471518742 Z30.41 [id number] GEM BASURTO MD [facility] [address],[place] [address] 10/04/2023 10:07:42 10/04/2023 10:44:25 Gynecologic examination 66015294 Z01.419 Well woman care- Cervical cancer screening: Pap smear not indicated (next 2024)- Breast cancer screening: mammogram not indicated- Colon cancer screening: does not qualify- HPV immunizati on: declined- STD testing: declined- hereditary cancer screening: does not qualify for testing- considerin g , discussed PNV once starting to TTC Surveillan ce of oral contraception 790877592 Z30.41 [id number] Viki Lockwood [facility] [address],[place] [id number] 03/24/2024 09:56:22 03/24/2024 10:17:03 [id number] GEM BASURTO MD [facility] [address] [place] [address] 03/24/2024 09:56:36 03/27/2024 12:54:10 Nausea and vomiting [id number] R11.2 - will start reglan PRN test positive [id number] Z32.01 1. Exam today within normal limits.2. Ultrasound today confirms GA and viability. EDC 11/02/. GC/Clamydi a testing done: will f/u as indicated. 4. ACOG guidelines and plan of care for reviewed with patient. All questions answered.5 . Return to office at 12 weeks for new OB visit6. Will need new OB labs at next visit.7. Genetic screening: desires. Migraine [id number] G43.90 9 - discussed tylenol, reglan, caffiene, and PRN imitrex [id number] Mariana Joy [facility] [address] [address] 04/18/2024 14:22:32 04/18/2024 14:45:59 Missed miscarriage [id number] O02.1 Z3A.00 [id number] GEM BASURTO MD [facility] [address] [address] 04/18/2024 14:51:31 04/18/2024 17:08:37 Missed miscarriage [id number] O02.1 - US c/w missed miscarriag e today, no FHT and no growth in embryo since prior- denies cramping or bleeding- discussed risks and benefits of expectant vs medical vs surgical management - discussed bleeding precaution s- patient desires medical management , rediscusse d risks of this management options and return precaution s Health Concerns Section Related Observation LastModified by Organization Detai ls LastModified Time None Recorded Concern Status LastModified by Organization Details LastModified Time None Recorded Advance Directives Directive N: Payers Encounter Date Sequence Insurance Name Policy Number Policy Bolaños Covered Member ID Bolaños Member ID Guarantor Name 10/04/2023 1 UMR [id number] Karlene C Coppersmith [id number] Karlene C Coppersmith 03/24/2024 1 UMR [id number] Karlene C Coppersmith [id number] Karlene C Coppersmith 03/24/2024 1 UMR [id number] Karlene C Coppersmith [id number] Karlene C Coppersmith 04/18/2024 1 UMR [id number] Karlene C Coppersmith [id number] Karlene C Coppersmith 04/18/2024 1 UMR [id number] Karlene C Coppersmith [id number] Karlene C Coppersmith Notes Date Note Type Note Provider Name and Address Organization Details Recorded Time 10/04/2023 text/html Presents today f or her annual well-woman exam. Denies abnormal vaginal discharge. She is sexually active and denies dyspareunia. She is using OCPs for contraception, and she states that she is satisfied with this method. She has not noticed any changes or masses in her breasts. Taking OCPs continuously, no menorrhagia. GEM BASURTO MD [address], [place], [address], [facility] 10/04/2023 22:23:13 03/24/2024 text/html Presents to the office today to confirm . Patient denies any problems up to this point with her . Patient denies cramping or vaginal bleeding. Nausea, somewhat controlled with unisom/B6. Will send reglan to help with nausea as well as migraines. Hx of depression: zoloft 50mg, well controlled Hx of migraines, taking imitrex rarely PRN for intractable headaches G1: gHTN vs preeclampsia without severe features; discussed bASA Patient is to Ori. Lives with partner and daughter. 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 Denies tobacco/EtOH/illic its. GEM BASURTO MD [address], [place], [address], [facility] 03/25/2024 00:08:27 04/18/2024 text/html Patient presents for bleeding that occurred over the weekend. Ultrasound shows 3 week s/d discrepancy with no heart tones. Denies heavy bleeding or cramping currently. No fevers or chills. GEM BASURTO MD [address], [place], [address], [facility] 04/18/2024 17:06:15 OBGyn Episode Ob Episode Information Episode Created Date Number of Fetuses Patient Bloodtype Patient rh Status Prepregnancy Weight lbs Domestic Partner Domestic Partner Phone Father Name Environmental Consultant Status 12/17/19 22 1 A Positive 124 Mk Coppers mith CLOSED Fetus Data First Name Last Name Admitted to NICU Weight (g) Sex Living Outcome Pediatric Complications Fetus ID Race Codes Race Delivery Type 2721.55 2 F true Full Term [id number] Vaginal Delivery Problems Problem Notes Hector pt Problem Name Start Date End Date Resolution Snomed Code Not e Migraine 11/25/2021 [id number] fioricet sparingly Anxiety in 11/25/2021 [id number] zoloft to start 12/17 Disorder of placenta [id number] Bilobed placenta- growth q4wk Gabriel Calculation Initial Gabriel Date Initial Exam Date Initial Exam Provider Initial Ultrasound Date Last Menstrual Period Date Ultra Sound Weeks Gestation 07/08/2021 12/16/2021 11/14/2021 10/01/2021 6 Eighteen To Twenty Week Gabriel Update Ultra Sound Date Fundal Height At Umbil Quickening Date Ultra Sound Latest Weeks Gestation Final Gabriel Confirmed By Final Gabriel Confirmed Date Final Gabriel Date Ultra Sound Latest Days Gestation 0 12/16/2021 07/09/19 23 0 Pre-brennan Flowsheet Flowsheet Date 12/16/2021 Araya Score Blood Edema Fundus Height Fundus Units Glucose Ketones Leukocytes Nitrite Labor Signs Protein Cervic Dilation Cervic Effacement Cervic Station Type Weight in lbs Pre/Post Dialysis Refused BP Diastolic BP Location Tested BP Systolic BP Type Fetus Heart Rate Present Fetus Movement Comments Flowsheet Date 12/16/2021 Araya Score Blood Edema Fundus Height Fundus Units Glucose Ketones Leukocytes Nitrite Labor Signs Protein Cervic Dilation Cervic Effacement Cervic Station Type Weight in lbs Pre/Post Dialysis Refused Weight 122.202355654360 BP Diastolic BP Location Tested BP Systolic BP Type 80 117 Fetus Heart Rate Present A 175 Fetus Movement A No Comments Karlene is a 31yo G1 at 10.6 for care. She is a pharmacist. Her history is noncontributory except for migraines, which have been better so far this , and anxiety, which has been worse. She is considering medication. We discussed RBA and she would like to start zoloft. PNL today with NIPT. FLU shot done, COVID vaccines done, due for booster beginning of Jan. Normal NT today. She has a history of VItamin D deficiency and would like this checked with her labs. Questions answered. Flowsheet Date 01/14/2022 Araya Score Blood Edema Fundus Height Fundus Units Glucose Ketones Leukocytes Nitrite Labor Signs Protein Cervic Dilation Cervic Effacement Cervic Station neg none none trace Type Weight in lbs Pre/Post Dialysis Refused Weight 121.626529841562 BP Diastolic BP Location Tested BP Systolic BP Type 76 109 Fetus Heart Rate Present A 154 Present Fetus Movement A Yes Comments patient states that having s ome anxiety, cramping, white discharge, nausea and vomiting. work causing most anxiety, seeing counselor, taking zoloft, not quite working yet, will continue and f/u sooner if needed. precautions reviewed. f/u 4 weeks anatomy Flowsheet Date 02/10/2022 Araya Score Blood Edema Fundus Height Fundus Units Glucose Ketones Leukocytes Nitrite Labor Signs Protein Cervic Dilation Cervic Effacement Cervic Station Type Weight in lbs Pre/Post Dialysis Refused BP Diastolic BP Location Tested BP Systolic BP Type Fetus Heart Rate Present Fetus Movement Comments Flowsheet Date 02/10/2022 Araya Score Blood Edema Fundus Height Fundus Units Glucose Ketones Leukocytes Nitrite Labor Signs Protein Cervic Dilation Cervic Effacement Cervic Station neg none none trace Type Weight in lbs Pre/Post Dialysis Refused Weight 126.62482672559 BP Diastolic BP Location Tested BP Systolic BP Type 73 109 Fetus Heart Rate Present Fetus Movement A Yes Comments Doing well. Does have hemorr hoids. Minimal discomfort. Discussed comfort measures. Baseline anatomy today. Discussed bilobed placenta and bilateral community living instructor. I anticipate we will repeat u/s in 4 weeks but will await md recommendations. Pt verbalized understanding. Will go ahead and schedule follow up u/s and change if needed. Flowsheet Date 03/10/2022 Araya Score Blood Edema Fundus Height Fundus Units Glucose Ketones Leukocytes Nitrite Labor Signs Protein Cervic Dilation Cervic Effacement Cervic Station Type Weight in lbs Pre/Post Dialysis Refused BP Diastolic BP Location Tested BP Systolic BP Type Fetus Heart Rate Present Fetus Movement Comments Flowsheet Date 03/10/2022 Araya Score Blood Edema Fundus Height Fundus Units Glucose Ketones Leukocytes Nitrite Labor Signs Protein Cervic Dilation Cervic Effacement Cervic Station neg none none trace Type Weight in lbs Pre/Post Dialysis Refused Weight 135.17336275707 BP Diastolic BP Location Tested BP Systolic BP Type 74 108 Fetus Heart Rate Present A 135 Fetus Movement A Yes Comments Doing well. Anxiety overall better on zoloft. US today 59%, CP cysts resolved. GCT next visit. Flowsheet Date 04/07/2022 Araya Score Blood Edema Fundus Height Fundus Units Glucose Ketones Leukocytes Nitrite Labor Signs Protein Cervic Dilation Cervic Effacement Cervic Station Type Weight in lbs Pre/Post Dialysis Refused BP Diastolic BP Location Tested BP Systolic BP Type Fetus Heart Rate Present Fetus Movement Comments Flowsheet Date 04/07/2022 Araya Score Blood Edema Fundus Height Fundus Units Glucose Ketones Leukocytes Nitrite Labor Signs Protein Cervic Dilation Cervic Effacement Cervic Station neg none none trace Type Weight in lbs Pre/Post Dialysis Refused Weight 142.193249639544 BP Diastolic BP Location Tested BP Systolic BP Type 71 108 Fetus Heart Rate Present A 135 Fetus Movement A Yes Comments Doing well. GCT today. UTI s x resolved. US today 56%. Discuss Tdap next visit. Flowsheet Date 04/29/2022 Araya Score Blood Edema Fundus Height Fundus Units Glucose Ketones Leukocytes Nitrite Labor Signs Protein Cervic Dilation Cervic Effacement Cervic Station neg trace 28 none trace Type Weight in lbs Pre/Post Dialysis Refused Weight 149.185655717516 BP Diastolic BP Location Tested BP Systolic BP Type 74 110 Fetus Heart Rate Present A 140 Fetus Movement A Yes Comments Doing well overall. Went to on 04/22 because thought had a UTI- did not but had 2+ ketones in her urine. She reports feeling fine, tough doesn't always eat or drink much at work all day and did go to after work. NO ketones today in urine. GCT was wnl. Discussed need to snack and drink well at work, will check for ketones at next visit at [facility] US next visit. Getting Tdap soon. Flowsheet Date 05/12/2022 Araya Score Blood Edema Fundus Height Fundus Units Glucose Ketones Leukocytes Nitrite Labor Signs Protein Cervic Dilation Cervic Effacement Cervic Station Type Weight in lbs Pre/Post Dialysis Refused BP Diastolic BP Location Tested BP Systolic BP Type Fetus Heart Rate Present Fetus Movement Comments Flowsheet Date 05/12/2022 Araya Score Blood Edema Fundus Height Fundus Units Glucose Ketones Leukocytes Nitrite Labor Signs Protein Cervic Dilation Cervic Effacement Cervic Station trace Type Weight in lbs Pre/Post Dialysis Refused Weight 156.007725174306 BP Diastolic BP Location Tested BP Systolic BP Type 72 103 Fetus Heart Rate Present A 135 Fetus Movement A Yes Comments Doing well. Doing better abo ut snacks and drinking at work. Ketones neg. Doing Tdap next week. US today 45%. Will call for preregistration, has pet care attendant. Flowsheet Date 05/26/2022 Araya Score Blood Edema Fundus Height Fundus Units Glucose Ketones Leukocytes Nitrite Labor Signs Protein Cervic Dilation Cervic Effacement Cervic Station trace 32 Type Weight in lbs Pre/Post Dialysis Refused Weight 163.896893217110 BP Diastolic BP Location Tested BP Systolic BP Type 82 122 Fetus Heart Rate Present A 155 Fetus Movement A Yes Comments Doing great. Some cramping, discomfort. Labor precautions. GBS next, discussed. Preregistration scheduled. Tdap done. Flowsheet Date 06/09/2022 Araya Score Blood Edema Fundus Height Fundus Units Glucose Ketones Leukocytes Nitrite Labor Signs Protein Cervic Dilation Cervic Effacement Cervic Station Type Weight in lbs Pre/Post Dialysis Refused BP Diastolic BP Location Tested BP Systolic BP Type Fetus Heart Rate Present Fetus Movement Comments Flowsheet Date 06/09/2022 Araya Score Blood Edema Fundus Height Fundus Units Glucose Ketones Leukocytes Nitrite Labor Signs Protein Cervic Dilation Cervic Effacement Cervic Station neg trace none trace Type Weight in lbs Pre/Post Dialysis Refused Weight 173.877017487181 BP Diastolic BP Location Tested BP Systolic BP Type 82 120 Fetus Heart Rate Present Fetus Movement A Yes Comments patient is having pain, cont ractions, swelling, discharge, heartburn and nausea. precautions reviewed, labor, efw 71%, GBS done today f/u one week Flowsheet Date 06/18/2022 Araya Score Blood Edema Fundus Height Fundus Units Glucose Ketones Leukocytes Nitrite Labor Signs Protein Cervic Dilation Cervic Effacement Cervic Station Type Weight in lbs Pre/Post Dialysis Refused Weight 176.453942108343 BP Diastolic BP Location Tested BP Systolic BP Type 94 R arm 145 sitting Fetus Heart Rate Present Fetus Movement A Yes Comments clearly gestational hyperten sive, abnormal blood pressure last night, nearly abnormal protein creatinine ratio, discussed delivery with the patient. We going to send her to Labor and delivery. They are going to check her , we talked about a potential plan for delivery. Possible Cervidil tonight, Dr. Garcia bar to deliver tomorrow Flowsheet Date 06/26/2022 Araya Score Blood Edema Fundus Height Fundus Units Glucose Ketones Leukocytes Nitrite Labor Signs Protein Cervic Dilation Cervic Effacement Cervic Station Type Weight in lbs Pre/Post Dialysis Refused BP Diastolic BP Location Tested BP Systolic BP Type Fetus Heart Rate Present Fetus Movement Comments Flowsheet Date 07/01/2022 Araya Score Blood Edema Fundus Height Fundus Units Glucose Ketones Leukocytes Nitrite Labor Signs Protein Cervic Dilation Cervic Effacement Cervic Station Type Weight in lbs Pre/Post Dialysis Refused Weight 153.704923329986 BP Diastolic BP Location Tested BP Systolic BP Type 93 131 88 120 Fetus Heart Rate Present Fetus Movement Comments Flowsheet Date 07/20/2022 Araya Score Blood Edema Fundus Height Fundus Units Glucose Ketones Leukocytes Nitrite Labor Signs Protein Cervic Dilation Cervic Effacement Cervic Station Type Weight in lbs Pre/Post Dialysis Refused Weight 152.498434625186 BP Diastolic BP Location Tested BP Systolic BP Type 81 118 Fetus Heart Rate Present Fetus Movement Comments Menstrual History Last Menstrual Date Menses Monthly On Bcp Conception Prior Menses Frequency Hcg Plus Date Menarche Onset Age 0810/01/2021 true Genetic Screening And Infection History Question Response Note Mental Retardation/Autism false Patient's Age Will Be 35 Years Or Older At Estim ated Date of Delivery false Thalassemia (Turkmen, Icelandic, Mediterranean, Or Background): MCV < 80 false Neural Tube Defect (Meningomyelocele, Spina Bifi da, Or Anencephaly) false Congenital Heart Defect false Down Syndrome false Stephen-Sachs (eg, Taoism, Cajun, Tajik-Romeo) f alse Ny Disease false Sickle Cell Disease Or Trait () false Hemophilia Or Other Blood Disorders false Muscular Dystrophy false Cystic Fibrosis false Fenton's Chorea false Intellectual Disability/Autism false If Yes, Was Person Tested For Fragile X? false Other Inherited Genetic Or Chromosomal Disorder false Maternal Metabolic Disorder (eg, Type 1 Diabetes , PKU) false Patient Or Baby's Father Had A Child With Defects Not Listed Above false Recurrent Loss, Or A Stillbirth false Medications (including Suppl ements, Vitamins, Herbs, OTC Drugs), Illicit/Recreational Drugs, Alcohol false If Yes, Agent(s) And Strength/Dosage false Any Other Genetic History false Live With Someone With TB Or Exposed To TB false Patient Or Partner Has History Of Genital Herpes false Rash Or Viral Illness Since Last Menstrual Perio d false History Of STD, Gonorrhea, Chlamydia, HPV, Syphi lis false Other Infection History false History of HIV false History of Hepatitis false Prior GBS-infected child false Hemoglobinopathy Or Carrier false Other Structural Defect false Recent Travel History Outside of Country false Delivery Information Delivery Date Delivery Type Labor Anesthesia Weeks Gestation Incision Type Labor Labor Length Hrs Delivered By Post Complications Tubal Sterilization Discharge Date Comments 3 Induce d Regional-Ep idural 37.2 false Nataliia Hector MD Pre-eclam psia w/o severe features, migraines , bilobed placenta Discharge Information Feeding Method Contraceptive Method Maternal HG B and HCT Levels
--- NOTE | 2024-04-23 12:31 | ED_ITS ---
HPI - Female Genitourinary General Chief complaint: Vaginal Bleeding Stated complaint: vaginal bleeding Time Seen by Provider: 04/23/24 12:31 Source: patient and family Mode of arrival: ambulatory Limitations: no limitations History of Present Illness HPI Narrative: 33 YEARS OLD WHITE FEMALE CAME TO THE ED WITH VAGINAL BLEEDING STARTED FEW HOURS PRIOR TO ARRIVAL TO THE EMERGENCY ROOM, WITH A LOT OF BLOOD CLOTS. PATIENT REPORT HAVING MISCARRIAGE 5 DAYS AGO, WITH SLIGHT VAGINAL BLEEDING THERE AFTER, TODAY GOT SUDDENLY WORSE. PATIENT IS 2 PARA 1 1. PATIENT WAS ON CYTOTEC AFTER THE MISCARRIAGE Related Data Home Medications ?Medication ?Instructions ?Recorded ?Confirmed ?Last Taken ?Type sertraline 50 mg tablet 50 mg PO DAILY 04/22/22 07/21/23 01/17/23 History levonorgestrel-ethinyl estradiol 1 tablet DIRECTED 12/16/22 07/21/23 01/17/23 History 0.1 mg-20 mcg tablet (Aviane) sumatriptan succinate 50 mg tablet See Rx Instructions PO .COMPLEX 12/29/22 07/21/23 01/16/23 History (Imitrex) ubrogepant 50 mg tablet (Ubrelvy) 50 mg PO DAILY PRN Migraine 01/04/23 07/21/23 01/16/23 History Headache 02/18/23 07/21/23 Unknown History Allergies Allergy/AdvReac Type Severity Reaction Status Date / Time No Known Allergies Allergy Verified 07/21/23 11:14 Review of Systems 2 Review of Systems: All systems reviewed & are unremarkable except as noted in HPI and below PMFSH Past Medical History Medical History (Updated 04/23/24 @ 15:55 by Darío Naranjo DO) Anxiety Migraine Rectal pain Hematochezia Anal fissure No pertinent past medical history Family History Family History Mother Diabetes mellitus Hypertension Thyroid disorder Father Hypertension Sibling Diabetes mellitus Hypertension Heart disease Social History Social History Smoking status: Never smoker Alcohol intake: current Drinks per week: 2 Substance use: never Substance use type: does not use Lack of Transportation: No Lack of Food: Never True Current Housing: I Have Housing Concerned About Future Housing: No Difficulty Paying Gas/Electric Bills: No Difficulty Paying for Meds: No Currently Unemployed: No Education: Trade/Vocational Certificate Difficulty w/ Childcare or Family Care: No Living arrangements: with family Spiritual care concerns: No Exam 2 Narrative: GENERAL APPEARANCE: WELL-DEVELOPED, WELL-NOURISHED SKIN: PALE HEAD: NORMOCEPHALIC, NONTRAUMATIC EYES: CLEAR CONJUNCTIVA ENT: OROPHARYNX NORMAL, EARS NORMAL, NOSE NORMAL NECK: SUPPLE, NONTENDER CHEST AND RESPIRATORY: AIRWAY PATENT, NO RESPIRATORY DISTRESS, NO ACCESSORY MUSCLE USE HEART: REGULAR RATE/RHYTHM ABDOMEN: SOFT, NONTENDER, NO ORGANOMEGALY, QUIET BOWEL SOUNDS VASCULAR: NORMAL PERIPHERAL PULSES, NORMAL CAPILLARY REFILL. MUSCULOSKELETAL: NORMAL RANGE OF MOTION, NONTENDER BACK NEUROLOGIC: ALERT AND ORIENTED ?3, FHA UNDERWRITER IS NORMAL TESTED, NO GROSS MOTOR DEFICIT : Speculum Exam - Vagina: normal appearance of the vagina and vaginal bleeding (ACTIVE VAGINAL BLEEDING OF FRESH RED BRIGHT BLOOD WITH A LOT OF BLOOD CLOTS) Course Consultations Consultation #1: DR EAGLE CALL THE OR TEAM Date: 04/23/24 Time: 14:34 Vital Signs Vital signs: Vital Signs Temperature 36.6 C 04/23/24 12:22 Pulse Rate 150 H 04/23/24 12:22 Respiratory Rate 18 04/23/24 12:22 Blood Pressure 131/83 04/23/24 12:22 Pulse Oximetry 98 04/23/24 12:22 Oxygen Delivery Room Air 04/23/24 12:22 Temperature 36.6 C 04/23/24 12:22 Pulse Rate 81 04/23/24 14:40 Respiratory Rate 20 04/23/24 14:40 Blood Pressure 121/82 04/23/24 14:40 Pulse Oximetry 100 04/23/24 14:40 Oxygen Delivery Room Air 04/23/24 12:22 MDM - Female Genitourinary MDM Narrative Medical decision making narrative: PATIENT CAME WITH VAGINAL BLEEDING 5 DAYS AFTER MISCARRIAGE VITAL SIGNS SHOWING HEART RATE OF 150, PHYSICAL EXAMINATION SHOWING PALE AND WEAK LOOKING PATIENT PELVIC EXAM SHOWING ACTIVE VAGINAL FRESH BRIGHT RED BLOOD WITH A LOT OF BLOOD CLOTS BLOOD WORKUP TODAY INCLUDES CBC, CMP, BETA HCG SHOWED WBC OF 11.6, HEMOGLOBIN 11.6 TYPE AND SCREEN PELVIC ULTRASOUND SHOWED BLOOD CLOTS AND POST CONCEPTION PRODUCTS RETAINING IN THE UTERUS AND CERVIX. PATIENT WAS ADMITTED FOR D&C Differential Diagnosis Differential diagnosis: Likely other (POST MISCARRIAGE UNCONTROLLABLE BLEEDING, INTRAUTERINE POST CONCEPTION PRODUCTIVE) Medical Records Attestation: I reviewed the patient's medical records. Lab Data 04/23/24 12:39 04/23/24 12:39 Labs: Lab Results 04/23/24 Range/Units 12:39 WBC 11.6 H (4.5-10.0) K/mm3 RBC 3.73 L (4.2-5.4) M/mm3 Hgb 11.6 L (12.0-15.0) g/dL Hct 35.0 L (37.0-47.0) % MCV 93.8 (80-100) fl MCH 31.1 (26-34) pg MCHC 33.1 (32-36) g/dl RDW 12.8 (11.5-14.5) % Plt Count 269 (150-375) k/mm3 MPV 9.8 (7.4-10.4) fl Immature Gran % (Auto) 0.2 (0-0.5) % Neut % (Auto) 48.0 (45.5-73.1) % Lymph % (Auto) 43.0 (18.3-44.2) % [place] % (Auto) 7.3 (2.6-8.5) % Eos % (Auto) 1.1 (0-4.4) % Baso % (Auto) 0.4 (0.2-1.2) % Lymph # (Auto) 4.99 H (0.9-3.2) K/mm3 [place] # (Auto) 0.9 H (0.1-0.6) K/mm3 Eos # (Auto) 0.1 (0-0.3) K/mm3 Baso # (Auto) 0.1 (0.0-0.1) K/mm3 Abs Immat Gran (auto) 0.02 (0.00-0.031) K/mm3 Absolute Neuts (auto) 5.6 (1.3-6.7) K/mm3 Absolute Nucleated RBC 0.000 (0.0-0.012) K/mm3 Nucleated RBC % 0.0 (0.0-0.2) % Sodium 137 (137-145) mmol/L Potassium 4.0 (3.4-5.0) mmol/L Chloride 104 (98-107) mmol/L Carbon Dioxide 23 (22-30) mmol/L Anion Gap 10 (4-12) mmol/L BUN 13 (7-17) mg/dL Creatinine 0.76 (0.7-1.0) mg/dL Estim Creat Clear Calc 83 ml/min Estimated GFR > 60 (59 - ) Glucose 106 (65-110) mg/dL Calcium 8.9 (8.4-10.2) mg/dL Total Bilirubin 0.3 (0.2-1.3) mg/dL AST 28 (14-36) U/L ALT 20 (6-35) U/L Alkaline Phosphatase 80 (38-126) U/L Total Protein 8.0 (6.3-8.2) g/dL Albumin 4.3 (3.5-5.1) g/dL Blood Type A Positive Antibody Screen Negative Imaging Data Radiologist's impression: Impressions Pelvic/Transvag US 04/23/24 15:04 IMPRESSION: Echogenic endometrial cavity and endocervical material with a small fluid component, which may represent blood/clot or retained products. Apparent extension through the external cervical os, correlate clinically. Critical Care Time Critical Care Time Critical Care Time: No Discharge Plan Discharge Clinical Impression: DUH (dysfunctional uterine hemorrhage) Patient Disposition: Still a Patient Condition: Guarded Prognosis
[2024-04-23 12:44] LABS: Basophils Absolute Auto 0.1 K/mm3 (0.0-0.1); Basophils Percent Auto 0.4 % (0.2-1.2); Eosinophils Absolute Auto 0.1 K/mm3 (0-0.3); Eosinophils Percent Auto 1.1 % (0-4.4); Hemoglobin 11.6 g/dL (12.0-15.0); Immature Granulocyte Absolute 0.02 K/mm3 (0.00-0.031); Immature Granulocyte Percent A 0.2 % (0-0.5); Lymphocytes Absolute Auto 4.99 K/mm3 (0.9-3.2); Mean Corpuscular HGB Conc 33.1 g/dl (32-36); Mean Corpuscular Hemoglobin 31.1 pg (26-34); Mean Corpuscular Volume 93.8 fl (80-100); Mean Platelet Volume 9.8 fl (7.4-10.4); Monocytes Absolute Auto 0.9 K/mm3 (0.1-0.6); Monocytes Percent Auto 7.3 % (2.6-8.5); Neutrophils Absolute Auto 5.6 K/mm3 (1.3-6.7); Platelet Count Result 269 k/mm3 (150-375); Red Blood Count 3.73 M/mm3 (4.2-5.4); Red Cell Distribution Width 12.8 % (11.5-14.5); White Blood Count 11.6 K/mm3 (4.5-10.0)
[2024-04-23 12:56] LABS: Alanine Aminotransferase 20 U/L (6-35); Albumin Level 4.3 g/dL (3.5-5.1); Alkaline Phosphatase 80 U/L (38-126); Anion Gap 10 mmol/L (4-12); Aspartate Amino Transferase 28 U/L (14-36); Bilirubin,Total 0.3 mg/dL (0.2-1.3); Blood Urea Nitrogen 13 mg/dL (7-17); Calcium 8.9 mg/dL (8.4-10.2); Carbon Dioxide 23 mmol/L (22-30); Chloride 104 mmol/L (98-107); Estimated CRCL calculation 83 ml/min; Estimated Glomerular Filt Rate > 60; Glucose 106 mg/dL (65-110); Sodium 137 mmol/L (137-145)
[2024-04-23] MEDS: SODIUM CHLORIDE 0.9% IV 2,000 ML 999 ML IV CONT (13:01)
--- OUTSIDE RECORDS SUMMARY | 2024-04-23 13:01 | XMS_ITS ---
Author Organization [facility] Address [address] [place] [address] Phone Care Team Providers Care Straightening Machine Feeder Name Role Phone CHERYL MONTOYA, AARON VAZQUEZ, ELE Primary Care Provider [phone] Plan of Treatment Findings Encounter Date Ordered goals, options, limi tations and risks of therapy WALK-IN CLINIC SICK VISIT with MAURICE OLIVIA PACKAGING SALES REPRESENTATIVE-C 06/13/2019 Last Documented On 0 7:37PM ; [facility] Ordered patient will call fo r appointment as needed WALK-IN CLINIC SICK VISIT with MAURICE OLIVIA PACKAGING SALES REPRESENTATIVE-C 06/13/2019 Last Documented On 0 7:37PM ; [facility] Ordered return to the clinic if condition worsens or new symptoms arise WALK-IN CLINIC SICK VISIT with MAURICE OLIVIA PACKAGING SALES REPRESENTATIVE-C 06/13/2019 Last Documented On 0 7:37PM ; [facility] Assessments Includes: Assessments for all patient encounters Findings Encounter Date Dysuria WALK-IN CLINIC SICK VISIT with Yudith OLIVIA PACKAGING SALES REPRESENTATIVE-C 06/13/2019 Last Documented On 0 7:37PM ; [facility] Urinary tract infection WALK-IN CLINIC S ICK VISIT with MAURICE OLIVIA PACKAGING SALES REPRESENTATIVE-C 06/13/2019 Last Documented On 0 7:37PM ; [facility] Medical Equipment - Implanted Devices Includes: Current and historical Devices No Medical Equipment Recorded Medications Includes: Current and historical Medications Current Medications (continue as prescribed) AZO Cranberry Urinary Tract 250-60 MG Oral Capsule 06/2019 Provider: Diagnosis: PRN-UTI Last Documented On 06/13/2019 7:26PM By ETIENNE BAXTER ; [facility] Macrobid 100 MG Oral Capsule 06/13/2019 Provider: MAURICE Brown NP-C Diagnosis: Urinary tract in fection, site not specified One tablet twice a day Last Documented On 0 9:39PM By Maurice MARTINEZP-C ; [facility] Medications Administered Includes: Administered [...] Subscriber Relationship Effect clayton Dates 1 - [facility] [id number] GRANT MONTERO Clinical Notes Includes: Signed Clinical Notes starting from 02/27/2022 No Clinical Notes Recorded
--- OUTSIDE RECORDS SUMMARY | 2024-04-23 13:01 | XMS_ITS ---
Care Plan - [facility] Created on: April 23, 2024 JE MONTERO : 1990 Sex: Female Author Organization [facility] Address [address] [place] [address] Phone Care Team Providers Care Tavern Keeper Name Role Phone CHERYL MONTOYA, AARON VAZQUEZ, ELE Primary Care Provider [phone]
--- OUTSIDE RECORDS SUMMARY | 2024-04-23 14:47 | XMS_ITS ---
Author Organization [facility] Address [address] [place] [address] Phone Care Team Providers Care Chief Deputy Court Clerk Name Role Phone CHERYL MONTOYA, AARON VAZQUEZ, ELE Primary Care Provider [phone] Plan of Treatment Findings Encounter Date Ordered goals, options, limi tations and risks of therapy WALK-IN CLINIC SICK VISIT with MAURICE OLIVIA MEDICAL IMAGING DIRECTOR-C 06/13/2019 Last Documented On 0 7:37PM ; [facility] Ordered patient will call fo r appointment as needed WALK-IN CLINIC SICK VISIT with MAURICE OLIVIA MEDICAL IMAGING DIRECTOR-C 06/13/2019 Last Documented On 0 7:37PM ; [facility] Ordered return to the clinic if condition worsens or new symptoms arise WALK-IN CLINIC SICK VISIT with MAURICE OLIVIA MEDICAL IMAGING DIRECTOR-C 06/13/2019 Last Documented On 0 7:37PM ; [facility] Assessments Includes: Assessments for all patient encounters Findings Encounter Date Dysuria WALK-IN CLINIC SICK VISIT with Yudith OLIVIA MEDICAL IMAGING DIRECTOR-C 06/13/2019 Last Documented On 0 7:37PM ; [facility] Urinary tract infection WALK-IN CLINIC S ICK VISIT with MAURICE OLIVIA MEDICAL IMAGING DIRECTOR-C 06/13/2019 Last Documented On 0 7:37PM ; [facility] Medical Equipment - Implanted Devices Includes: Current and historical Devices No Medical Equipment Recorded Medications Includes: Current and historical Medications Current Medications (continue as prescribed) AZO Cranberry Urinary Tract 250-60 MG Oral Capsule 06/2019 Provider: Diagnosis: PRN-UTI Last Documented On 06/13/2019 7:26PM By ETIENNE BAXTER ; [facility] Macrobid 100 MG Oral Capsule 06/13/2019 Provider: MAURICE Brown NP-C Diagnosis: Urinary tract in fection, site not specified One tablet twice a day Last Documented On 0 9:39PM By Maurice MARTINEZP-C ; [facility] Medications Administered Includes: Administered [...] Subscriber Relationship Effect clayton Dates 1 - [facility] [id number] GRANT MONTERO Clinical Notes Includes: Signed Clinical Notes starting from 02/27/2022 No Clinical Notes Recorded
--- OUTSIDE RECORDS SUMMARY | 2024-04-23 14:49 | XMS_ITS ---
Care Plan - [facility] Created on: April 23, 2024 JE MONTERO : 1990 Sex: Female Author Organization [facility] Address [address] [place] [address] Phone Care Team Providers Care Syrup Maker Cook Name Role Phone CHERYL MONTOYA, AARON VAZQUEZ, ELE Primary Care Provider [phone]
--- OUTSIDE RECORDS SUMMARY | 2024-04-23 14:49 | XMS_ITS | Clinical Summary ---
Author Organization [facility] Address [address] [place] [address] Phone Care Team Providers Care Director Of Purchasing Name Role Phone CHERYL MONTOYA, AARON VAZQUEZ, ELE Primary Care Provider [phone] Reason for Visit and Chief Complaint WALK-IN CLINIC SICK VISIT Plan of Treatment - Goals, options, limitations and risks of therapy - Last Documented On 06/13/2019 7:37PM ; [facility] - Return to the clinic if condition worsens or new symptoms arise - Last Documented On 06/13/2019 7:37PM ; [facility] - Patient will call for appointment as needed - Last Documented On 06/13/2019 7:37PM ; [facility] *unable to run UA due to AZO -- will culture and treat empirically - Last Documented On 06/13/2019 7:37PM ; [facility] Assessments Includes: Assessments from this encounter Findings - Urinary tract infection [N39.0 - Urinary tract infection, site not specified] - Last Documented On 06/13/2019 7:37PM ; [facility] - Dysuria [R30.0 - Dysuria] - Last Documented On 06/13/2019 7:37PM ; [facility] Medical Equipment - Implanted Devices Includes: Current Devices No Medical Equipment Recorded Medications Includes: Medications discussed during this encounter and other current Medications New / Renewed during this visit MAURICE LARA on 06/13/2019 Macrobid 100 MG Oral Capsule Provider: MAURICE LARA 7 day supply: 14 capsule, 0 refills Diagnosis: Urinary tract infection, site not specified One tablet twice a day Pharmacy: [address], [phone] - Last Documented On 0 9:39PM By Maurice LARA ; [facility] Current Medications (continue as prescribed) AZO Cranberry Urinary Tract 250-60 MG Oral Capsule 06/2019 Provider: Diagnosis: PRN-UTI Last Documented On 06/13/2019 7:26PM By ETIENNE BAXTER ; [facility] Medications Administered Includes: Administered [...] 98 Last Documented: On 06/13/2019 7:28PM ; [facility] Results Includes: Results discussed during this encounter [...] patient Last Documented On 0 7:32PM ; [facility] Medical History Includes: Medical History addressed during [...] Diagnosis WALK-IN CLINIC SICK VISIT MAURICE MARTINEZP-C [facility] 06/13/19 7:15PM 7:34PM Urinary Tract Infection,Dys uria Insurance Includes: Active Insurance Policies Plan Name Member ID Group # Subscriber Relationship Effect clayton Dates 1 - [facility] [id number] GRANT MONTERO S Clinical Notes Includes: Clinical Notes from this encounter No Clinical Notes Recorded
[2024-04-23] MEDS: miSOPROStol 200 MCG TABLET 800 MCG RECTAL (15:06)
--- NOTE | 2024-04-23 15:09 | P.HP_ITS ---
H&P: HPI History of Present Illness Date/Time: 04/23/24 15:09 Chief Complaint: Vaginal bleeding Narrative: 33-year-old female with incomplete miscarriage and vaginal bleeding. We have agreed perform suction D&C. The patient understands the details of the procedure. The procedure has been explained in detail. She understands the risks. She understands that injuries may occur that result in hospitalization, more surgery, and severe illness. She understands risk of hemorrhage and infection. She denies any chest pain or shortness of breath. She denies any nausea, vomiting, fever, chills. Review of Systems Review of Systems: All systems reviewed & are unremarkable except as noted in HPI and below Constitutional: Constitutional: Denies chills, Denies fatigue, Denies fever(s) and Denies weakness Eyes: Eyes: Denies blurry vision, Denies change in vision, Denies loss of peripheral vision, Denies loss of vision, Denies other visual disturbances and Denies eye pain ENT: Denies vertigo, Denies dizziness, Denies hearing loss, Denies mouth pain, Denies nasal obstruction, Denies neck mass and Denies neck pain Cardiovascular: Cardiovascular: Denies chest pain, Denies diaphoresis, Denies syncope, Denies leg edema and Denies dyspnea Respiratory: Respiratory: Denies chest congestion, Denies cough, Denies hemoptysis, Denies dyspnea and Denies wheezing Gastrointestinal: Gastrointestinal: Denies abdominal pain, Denies const ipation, Denies diarrhea, Denies nausea and Denies vomiting Genitourinary: Genitourinary: Denies hematuria, Denies change in libido, Denies nocturia, Denies genital lesions, Denies flank pain and Denies urinary urgency Musculoskeletal: Musculoskeletal: Denies abnormal gait, Denies back pain, Denies myalgias, Denies arthralgias, Denies joint swelling, Denies muscle weakness and Denies neck pain Integumentary/Breasts: Skin/Breast: Denies swelling, Denies breast pain, Denies breast mass, Denies dry skin, Denies nipple discharge, Denies unusual bruising and Denies jaundice Neurologic: Denies Neuro-related abnormal movements, Denies Abnormal speech present, Denies abnormal gait, Denies behavioral changes, Denies confusion, Denies vertigo, Denies dizziness, Denies syncope, Denies loss of vision, Denies memory loss, Denies convulsions and Denies weakness Psychiatric: Psychiatric: Denies abnormal sleep pattern, Denies behavioral changes, Denies change in libido, Denies confusion, Denies depression, Denies anhedonia and Denies memory loss Endocrine: Endocrine: Reports no additional endocrine complaints, Denies change in libido and Denies fatigue Hematologic/Lymphatic: Hematologic/Lymphatic: Reports no additional hematologic/lymphatic complaints Allergic/Immunologic: Allergic/Immunologic: Reports no additional allergic/immunologic complaints and Denies wheezing PMFSH Past Medical History Medical History Rectal pain Hematochezia Anal fissure No pertinent past medical history Family History Family History Mother Diabetes mellitus Hypertension Thyroid disorder Father Hypertension Sibling Diabetes mellitus Hypertension Heart disease Social History Social History Smoking status: Never smoker Alcohol intake: current Drinks per week: 2 Substance use: never Substance use type: does not use Lack of Transportation: No Lack of Food: Never True Current Housing: I Have Housing Concerned About Future Housing: No Difficulty Paying Gas/Electric Bills: No Difficulty Paying for Meds: No Currently Unemployed: No Education: Trade/Vocational Certificate Difficulty w/ Childcare or Family Care: No Living arrangements: with family Spiritual care concerns: No Meds Home Medications and Allergies Home Medications ?Medication ?Instructions ?Recorded ?Confirmed ?Type sertraline 50 mg tablet 50 mg PO DAILY 04/22/22 07/21/23 History levonorgestrel-ethinyl estradiol 1 tablet DIRECTED 12/16/22 07/21/23 History 0.1 mg-20 mcg tablet (Aviane) sumatriptan succinate 50 mg tablet See Rx Instructions PO .COMPLEX 12/29/22 07/21/23 History (Imitrex) ubrogepant 50 mg tablet (Ubrelvy) 50 mg PO DAILY PRN Migraine 01/04/23 07/21/23 History Headache 02/18/23 07/21/23 History Allergies Allergy/AdvReac Type Severity Reaction Status Date / Time No Known Allergies Allergy Verified 07/21/23 11:14 Vital Signs Vital Signs - 24 hr 04/23/24 12:22 04/23/24 14:10 04/23/24 14:11 Temperature 98 F Pulse Rate 150 H 90 97 Respiratory Rate 18 Blood Pressure 131/83 103/72 112/75 Pulse Oximetry 98 Oxygen Delivery Room Air 04/23/24 14:11 04/23/24 14:40 Temperature Pulse Rate 121 H 81 Respiratory Rate 20 Blood Pressure 111/79 121/82 Pulse Oximetry 100 Oxygen Delivery Exam Const: General: cooperative, healthy appearing, comfortable and no acute distress Orientation/consciousness: oriented to person, oriented to place and oriented to time HENMT: Head: normal to inspection Ears: external ears normal Face/Nose/Sinus: Normal external nose present and normal facial exam Face and sinus: normal facial exam Eyes: General: appearance normal, both eyes and all related structures Neck: Neck: normal visual inspection, trachea midline and supple Resp: Auscultation: clear to auscultation bilaterally, no crackles, no rales, no rhonchi and no wheezes Cardio: Rate: regular rate Rhythm: regular rhythm Heart sounds: no click, no murmurs and no rubs GI: GI Palp: No abdominal tenderness, No Soft to palpation, No Tenderness to palpation present (GI) and No Palpable mass present Auscultation: normal bowel sounds Skin: General skin exam: normal color and no rashes or lesions noted Neuro: General: oriented to person, oriented to place and oriented to time Extrem: General: normal to inspection, no joint enlargement, no clubbing, cyanosis or edema, no pedal edema and no calf tenderness Psych: Appearance: grossly normal Mental Status: mental status grossly normal Speech and movement: Normal speech and movement present H&P: Results Labs Labs: Short CBC 04/23/24 Range/Units 12:39 WBC 11.6 H (4.5-10.0) K/mm3 Hgb 11.6 L (12.0-15.0) g/dL Hct 35.0 L (37.0-47.0) % Plt Count 269 (150-375) k/mm3 BMP 04/23/24 12:39 Sodium 137 Potassium 4.0 Chloride 104 Carbon Dioxide 23 BUN 13 Creatinine 0.76 Glucose 106 Calcium 8.9 Liver Function 04/23/24 Range/Units 12:39 Total Bilirubin 0.3 (0.2-1.3) mg/dL AST 28 (14-36) U/L ALT 20 (6-35) U/L Alkaline Phosphatase 80 (38-126) U/L Albumin 4.3 (3.5-5.1) g/dL Assessment and Plan Assessment and plan (1) Incomplete miscarriage: Code(s): O03.4 - Incomplete spontaneous without complication Status: Acute Assessment and Plan: 33-year-old female with incomplete miscarriage and vaginal bleeding. We have agreed perform suction D&C. She understands risks, benefits, and alternatives. She has completed the informed consent process is ready to proceed.
--- NOTE | 2024-04-23 15:16 | WPDHPUPDATE1 ---
History and Physical Update Update Date/Time: 04/23/24 15:16 History and Physical has been reviewed, including an updated exam of the patient. There are NO changes in the patient's condition. Risks, benefits, and alternatives have been discussed and questions answered. Patient agrees to proceed with procedure.
--- NOTE | 2024-04-23 15:48 | PC.NURSE ---
OR called for report
--- NOTE | 2024-04-23 15:54 | P.PNAN_ITS ---
Anes - Initial Pre Proc Eval Procedure: Operation Date: 04/23/24 16:30 Proposed Procedures p D&C Suction and Sharp - Eugenio Knowles MD Date/Time: 04/23/24 15:54 Surgeon: Eugenio Knowles MD Pre Op Diagnosis: vaginal bleeding Patient Data Age: 33 Gender: F Height: 1.65 m Weight: 56.8 kg Last Vital Signs Temp 36.6 C 04/23/24 12:22 Pulse 81 04/23/24 14:40 Resp 20 04/23/24 14:40 BP 121/82 04/23/24 14:40 Pulse Ox 100 04/23/24 14:40 O2 Del Method Room Air 04/23/24 12:22 Allergies Allergy/AdvReac Type Severity Reaction Status Date / Time No Known Allergies Allergy Verified 07/21/23 11:14 Home Medications ?Medication ?Instructions ?Recorded ?Confirmed ?Type sertraline 50 mg tablet 50 mg PO DAILY 04/22/22 07/21/23 History levonorgestrel-ethinyl estradiol 1 tablet DIRECTED 12/16/22 07/21/23 History 0.1 mg-20 mcg tablet (Aviane) sumatriptan succinate 50 mg tablet See Rx Instructions PO .COMPLEX 12/29/22 07/21/23 History (Imitrex) ubrogepant 50 mg tablet (Ubrelvy) 50 mg PO DAILY PRN Migraine 01/04/23 07/21/23 History Headache 02/18/23 07/21/23 History Laboratory Tests 04/23/24 12:39 WBC 11.6 H K/mm3 (4.5-10.0) RBC 3.73 L M/mm3 (4.2-5.4) Hgb 11.6 L g/dL (12.0-15.0) Hct 35.0 L % (37.0-47.0) MCV 93.8 fl (80-100) MCH 31.1 pg (26-34) MCHC 33.1 g/dl (32-36) RDW 12.8 % (11.5-14.5) Plt Count 269 k/mm3 (150-375) MPV 9.8 fl (7.4-10.4) Immature Gran % (Auto) 0.2 % (0-0.5) Neut % (Auto) 48.0 % (45.5-73.1) Lymph % (Auto) 43.0 % (18.3-44.2) Gray % (Auto) 7.3 % (2.6-8.5) Eos % (Auto) 1.1 % (0-4.4) Baso % (Auto) 0.4 % (0.2-1.2) Lymph # (Auto) 4.99 H K/mm3 (0.9-3.2) Gray # (Auto) 0.9 H K/mm3 (0.1-0.6) Eos # (Auto) 0.1 K/mm3 (0-0.3) Baso # (Auto) 0.1 K/mm3 (0.0-0.1) Abs Immat Gran (auto) 0.02 K/mm3 (0.00-0.031) Absolute Neuts (auto) 5.6 K/mm3 (1.3-6.7) Absolute Nucleated RBC 0.000 K/mm3 (0.0-0.012) Nucleated RBC % 0.0 % (0.0-0.2) Sodium 137 mmol/L (137-145) Potassium 4.0 mmol/L (3.4-5.0) Chloride 104 mmol/L (98-107) Carbon Dioxide 23 mmol/L (22-30) Anion Gap 10 mmol/L (4-12) BUN 13 mg/dL (7-17) Creatinine 0.76 mg/dL (0.7-1.0) Estim Creat Clear Calc 83 ml/min Estimated GFR > 60 (59 - ) Glucose 106 mg/dL (65-110) Calcium 8.9 mg/dL (8.4-10.2) Total Bilirubin 0.3 mg/dL (0.2-1.3) AST 28 U/L (14-36) ALT 20 U/L (6-35) Alkaline Phosphatase 80 U/L (38-126) Total Protein 8.0 g/dL (6.3-8.2) Albumin 4.3 g/dL (3.5-5.1) Blood Type A Positive Antibody Screen Negative Patient hx anesthesia problems: none Family hx anesthesia problems: none Results Review: All pre-operative results and documents have been reviewed as part of the pre- operative evaluation. [facility] Past Medical History Medical History (Updated 04/23/24 @ 15:55 by Darío Naranjo DO) Anxiety Migraine Rectal pain Hematochezia Anal fissure No pertinent past medical history Family History Family History Mother Diabetes mellitus Hypertension Thyroid disorder Father Hypertension Sibling Diabetes mellitus Hypertension Heart disease Social History Social History Smoking status: Never smoker Alcohol intake: current Drinks per week: 2 Substance use: never Substance use type: does not use Lack of Transportation: No Lack of Food: Never True Current Housing: I Have Housing Concerned About Future Housing: No Difficulty Paying Gas/Electric Bills: No Difficulty Paying for Meds: No Currently Unemployed: No Education: Trade/Vocational Certificate Difficulty w/ Childcare or Family Care: No Living arrangements: with family Spiritual care concerns: No Anes - Eval Final PreProcedure Day of Procedure 04/23/24 15:54 Patient weight: normal Heart: regular rate and rhythm Lungs: clear to auscultation and normal air movement Airway: Mallampati scale class II Neurological: alert and oriented Last oral intake: >/= 8 hours ASA classification: II Emergent: yes Anesthetic plan: proceed Anesthesia type and monitoring: general GIVS and standard monitoring Results Review: All pre-operative results and documents have been reviewed as part of the pre- operative evaluation. Informed Consent: The patient's anesthetic plan and its attendant risks and benefits were discussed with the patient/family/POA. Questions were solicited and answers provided to the satisfaction of the patient/family/POA.
[2024-04-23] MEDS: TRANEXAMIC ACID 1,000 MG/10 ML AMPUL 1000 MG IV PUSH (16:41)
[2024-04-23] MEDS: LACTATED RINGERS 1,000 ML 30 ML IV CONT ×2 (16:57→17:29)
--- NOTE | 2024-04-23 17:16 | P.OP_ITS ---
Procedure Note - Detailed Date of Procedure 04/23/24 Pre-op Diagnosis vaginal bleeding Post-op Diagnosis Same Procedure Performed Suction D&C Surgeon Eugenio Knowles MD Anesthesia MAC Indications missed Findings normal-appearing vulva vagina and cervix to. Cervix dilated with products conception, firm placental like tissue within the endocervical canal. Large amount of blood and clot in the vagina. Description of Procedure the patient was taken the operating room. She was prepped and draped in dorsal lithotomy position after induction of mac anesthesia. A speculum was placed in the vagina. Cervix grasped with tenaculum. The cervix was dilated to about 1 cm Using Lozada dilators. A 8. Kyrgyz curved curette was used to perform suction D&C. The curette was introduced and vacuum was applied. The curette was removed over all surfaces of the intrauterine cavity multiple times. This was done until all the surfaces were clear and had the familiar grainy texture they can be felt through the instrument. A sharp curette was then used to curettage all the surfaces. The suction cup was then reapplied 1 more time to remove any debris. The instruments were removed. The speculum and tenaculum were removed. The patient tolerated the procedure well. She was taken recovery room stable condition. Estimated Blood Loss 50 Drains No Packing No Pathology Yes Complications No immediate complications Condition Stable Disposition PACU
[2024-04-23] MEDS: fentaNYL CITRATE INJ (*CRX) 100 MCG/2 ML VIAL 25 MCG IV PUSH ×3 (17:20→17:54)
[2024-04-23] MEDS: oxyCODONE HCL (*CRX) 5 MG TAB IR PO (18:35)
== END 2024-04-23 18:58 | disposition home or self-care (01) ==
LOC: ANHED 14:36 → ANHSURGERY 14:46
PROVIDERS: Emergency Provider Emergency Medicine; PCP Physician Assistant; Visit Provider Obstetrics & Gynecology
PROC: (CPT 59812; principal; 2024-04-23 16:30)
DX: O03.4 Incomplete spontaneous abortion without complication (principal); F41.9 Anxiety disorder, unspecified; Z87.19 Personal history of other diseases of the digestive system; Z82.49 Family history of ischemic heart disease and other diseases of the circulatory system
CPT/HCPCS: 59812; 36415; 76830; 76856; 80053; 85025; 86850; 86900; 86901; 88305; 96361; 96374; 96375; 99285; A9270; J2003; J2250; J2704; J3010; J7030; J7120